=== PATIENT | female | born 1960 | race Caucasian/White ===

== ENCOUNTER 2020-06-16 07:49 | Outpatient (REF) | payer BC, SELFPAY ==
[2020-06-16 09:47] LABS: Alanine Aminotransferase 15 U/L (0-31); Aspartate Amino Transferase 17 U/L (5-31); Cholesterol 135 mg/dL; HDL Cholesterol 39 mg/dL; LDL Cholesterol Calculated 64 mg/dl; Triglycerides 163 mg/dL
[2020-06-16 09:59] LABS: Estimated Average Glucose 123 mg/dL; Hemoglobin A1C 137.7004 umol/L; Hemoglobin A1c % 5.9 %
== END 2020-06-16 07:50 | disposition home or self-care (01) ==
LOC: HO.LAB 07:49
PROVIDERS: PCP Internal Medicine; Visit Provider Internal Medicine
DX: E78.5 Hyperlipidemia, unspecified (principal); I10 Essential (primary) hypertension; E11.9 Type 2 diabetes mellitus without complications
CPT/HCPCS: 80061; 83036; 84450; 84460

== ENCOUNTER 2020-07-11 06:20 | Day surgery (SDC) | payer BC, SELFPAY ==
[2020-07-04 09:50] VITALS: BMI 37.7
[2020-07-11 06:55] LABS: Glucose, Whole Blood 125 mg/dL (60-115)
[2020-07-11 07:01] VITALS: BP 167/77; PULSE 96; RESP 16; TEMP 36.2; O2SAT 97
--- NOTE | 2020-07-11 07:20 | P.CONAN_ITS ---
[facility] Past Medical History Medical History (Updated 07/04/20 @ 09:57 by Margot Genao) Breast cancer, left Dyslipidemia Endometrial cancer Essential hypertension GERD (gastroesophageal reflux disease) History of anxiety Major depression in full remission Mild intermittent asthma Postmenopausal Sleep apnea Tubular adenoma of colon Type 2 diabetes mellitus without complication, without long-term current use of insulin Family History Family History Father Alcoholism CAD (coronary artery disease) Stomach cancer Myocardial infarction Mother Diabetes mellitus Sister Schizophrenia Brother Mental disorder Maternal Grandmother Uterine cancer Brother No problems noted. Family history of problems with anesthesia: No Surgical History Surgical History (Updated 07/04/20 @ 09:58 by Margot Genao) H/O colonoscopy History of esophagogastroduodenoscopy (EGD) History of excision of pilonidal cyst History of lumpectomy of left breast History of surgical removal of ganglion cyst History of total abdominal hysterectomy and bilateral salpingo-oophorectomy Hx of cholecystectomy History of Problems with Anesthesia: Yes (PONV) Social History Social History (Updated 06/23/20 @ 00:47 by Melissa Marsh MD) Alcohol intake: never Smoking Status: Never smoker Advance Directives Information Provided: No Meds Allergies Allergy/AdvReac Type Severity Reaction Status Date / Time azithromycin Allergy Intermediate RASH, Verified 07/04/20 09:59 [From Zithromax Z-German] DIARRHEA, VOMIT diphenhydramine AdvReac Intermediate Hallucinati Verified 07/04/20 09:59 [From Benadryl] ons Environmental Allergy Intermediate ITCHY Uncoded 07/04/20 09:59 NOSE, COUGH, SNEEZE Home Medications Medication Instructions Recorded Confirmed Type anastrozole 1 mg tablet 1 mg PO DAILY 06/19/20 07/04/20 History cholecalciferol (vitamin D3) 50 50 mcg PO DAILY 06/19/20 07/04/20 History mcg (2,000 unit) capsule citalopram 20 mg tablet 20 mg PO DAILY 06/19/20 07/04/20 History albuterol sulfate [ProAir HFA] 2 puff INHALATION Q4-6H PRN 07/04/20 07/04/20 H istory Exam Exam Date and Time: July 11, 2020 0720 Height,Weight and Vital Signs: Height 5 ft Weight 87.543 kg Last Vital Signs Temp 97.2 F 07/11/20 07:01 Pulse 96 07/11/20 07:01 Resp 16 07/11/20 07:01 BP 167/77 H 07/11/20 07:01 Pulse Ox 97 07/11/20 07:01 Pertinent Lab Results Pertinent Lab Results: Laboratory Tests 07/11/20 06:51 POC Glucose 125 H Airway Mallampati Class: II TM Dist: >3cm Neck ROM: Full Loose/Missing/Broken Teeth: Yes (Missing some) Heart: RRR Lungs: CTAB Assessment and Plan Assessment Anesthesia Assessment: Anesthesia Plan Discussed and Chart Reviewed Final Anesthetic Review NPO: Yes ASA Class: III Final Preanesthetic Review: No Changes in Pt Med Stat, Meds/Allgs Chart Reviewed, Consent Obtained/Reviewed and Anes Risks/Benef Reviewed Patient Risk: Intermediate Procedure Risk: Low Anesthetic Plan Anesthetic Plan: MAC: Disposition: Standard PACU
[2020-07-11] MEDS: Scopolamine 1.5 MG PATCH.TD.3 TRANSDERMA (07:38)
[2020-07-11] MEDS: Lactated Ringers 1,000 ML 100 ML IVCONT (07:38)
[2020-07-11] MEDS: Metoclopramide HCl 10 MG/2 ML VIAL IVPUSH (07:38)
[2020-07-11] MEDS: ondansetron HCL 4 MG/2 ML VIAL IVPUSH ×2 (07:38→09:51)
[2020-07-11 09:21] VITALS: BP 149/82; PULSE 71; RESP 16; TEMP 36.1; O2SAT 96
[2020-07-11 09:36] VITALS: BP 168/81; PULSE 63; RESP 14; O2SAT 98
--- NOTE | 2020-07-11 09:45 | MHC.SHP ---
Pre-Procedural Eval Section B Chief Complaint: Screening Details of Present Illness: Colon cancer screening No clinical changes since preop Relevant Family History (Specify if Yes): Yes Relevant Social History: None Present Medications: see Short Stay Collaborative assessment Medical History: Significant History (MO; TARAS, Breast Ca, Endometrial Cancer, GERD) History of Previous Operations: Relevant previous surgery/procedure and date(s) (Hysterectomy, GB, Ventral hernia) Allergies: Allergies Allergy/AdvReac Type Severity Reaction Status Date / Time azithromycin Allergy Intermediate RASH, Verified 07/04/20 09:59 [From Zithromax Z-German] DIARRHEA, VOMIT diphenhydramine AdvReac Intermediate Hallucinati Verified 07/04/20 09:59 [From Benadryl] ons Environmental Allergy Intermediate ITCHY Uncoded 07/04/20 09:59 NOSE, COUGH, SNEEZE Review of Systems Sugical H&P ROS: Negative: Constitution, Cardiovascular, Respiratory and Gastrointestinal Exam Surgical H&P Exam: Normal: HEENT, Normal: Heart and Normal: Extremities and Significant Findings: Abdomen (Large ventral hernia) Plan Diagnosis/Plan: Unchanged Patient has been examined and remains a candidate for the planned procedureYES
[2020-07-11 09:51] VITALS: BP 167/88; PULSE 77; RESP 18; O2SAT 97
[2020-07-11 10:05] VITALS: BP 135/78; PULSE 62; RESP 10; O2SAT 100
[2020-07-11 10:20] VITALS: BP 143/76; PULSE 62; RESP 15; TEMP 36.6; O2SAT 99
--- NOTE | 2020-07-11 10:31 | P.PCN_ITS ---
Brief Operative Note Date of procedure: 07/11/20 Pre-op diagnosis: Colon cancer screening, personal hx endometrial/Breast cance r;Pos family hx Post-op diagnosis: other (Colonic polyp--Hepatic Flexure) Procedure: COLONOSCOPY EPI INJ-8-9CC, ORISE--9CC, HSP WITH TRIMING, RESOLUTION CLIPPING, BASKET RETRIEVAL Anesthesia: MAC (ISAIAH PINEDA) Surgeon: Courtney Means Estimated blood loss (mL): 5 Pathology: other (HEPATIC FLEX POLYPS) Condition: stable Disposition: other
--- NOTE | 2020-07-11 11:17 | HO.POSTANES ---
Post Anesthesia Evaluation Post Anesthesia Evaluation Vital Signs: Vital Signs Temp Pulse Resp BP Pulse Ox 07/11/20 10:20 98 F 62 15 143/76 H 99 07/11/20 10:05 62 10 L 135/78 100 07/11/20 09:51 77 18 167/88 H 97 07/11/20 09:36 63 14 168/81 H 98 07/11/20 09:21 97 F 71 16 149/82 H 96 07/11/20 07:01 97.2 F 96 16 167/77 H 97 Anesthesia: Monitored Mental Status: Awake Pain Control: Satisfactory Nausea/Vomiting: None Hydration: Adequate Anesthesia-Related Issues: No Anes. Related Issues
--- NOTE | 2020-07-11 15:51 | OP_ITS ---
SURGEON: Courtney Means MD: POSTOPERATIVE DIAGNOSIS: Polyp, sessile, hepatic flexure. PROCEDURE PERFORMED: Colonoscopy with hot snare polypectomy x1 with hot snare trimming x1, ORISE injection submucosally 9 mL, epinephrine injection 8 to 9 mL. ESTIMATED BLOOD LOSS: Minimal blood loss. Resolution clipping of polyp, polypectomy site was done. COMPLICATIONS: There was a faulty cautery connection with Erbe #1 machine was switched. Procedure was completed without incident. Complex procedure, start time 7:46 a.m., end time 9:11 a.m. ANESTHESIA: Monitored. ANESTHESIOLOGIST: Eamon Salinas CRNA. ASSISTANTS: No tiler's assistant. SPECIMENS: Specimens removed; polyp, hepatic flexure. PREOPERATIVE DIAGNOSES: Positive family history in her father of colon cancer, personal history of breast cancer, uterine cancer. This was colon cancer screening exam. [employer]: Dr. Means. CONDITION: Postprocedure, stable. FINDINGS: Digital rectal exam revealed no specific lesion. Video colonoscope was introduced without difficulty. It was navigated into the rectosigmoid and sigmoid on up through descending, transverse, ascending colon into the cecum. Appendiceal orifice was seen. Ileocecal valve was well seen. As we pulled back, there was an 8 to 10 mm sessile polyp at the beginning of the first curve of the hepatic flexure on the proximal side. This was an area that was difficult to hold in place due to angulation of the scope. The area initially had submucosal injection of epinephrine secondary with the polyp actually being in the valley of two folds, this was done submucosally to bring the polyp up to an area to the level that we could, essentially place a snare around and cinched up. We were able to successfully remove the polyp. The polypectomy site was clear. There was an edge of polypoid tissue that was trimmed with the hot snare that we had used for the polypectomy. The polyp itself was large enough to be retrieved using [employer] retrieval net. Prior to this, we placed a resolution clip tangentially across the mid section of the polypectomy site. The scope was withdrawn with polyp and then reinserted for re-examination of the area between the anorectal verge and 65 cm. This was done. There were no additional lesions seen. Anorectal verge itself was clear. CURRENT RECOMMENDATIONS: With complexity of this procedure (probably added to by the patient's significant ventral hernia), her colonoscopy should probably be repeated in 3 years unless there is any suggestion of dysplastic tissue present on the biopsies. Courtney Means MD MEN/OTILIO / [id number] MTDD
== END 2020-07-11 11:19 | disposition home or self-care (01) ==
PROVIDERS: PCP Internal Medicine; Visit Provider Internal Medicine Gastroenterology
PROC: 0DJD8ZZ Inspection of Lower Intestinal Tract, Via Natural or Artificial Opening Endoscopic (ICD-10-PCS; CPT 45378; principal; 2020-07-11 07:30)
DX: Z12.11 Encounter for screening for malignant neoplasm of colon (principal); D12.3 Benign neoplasm of transverse colon; C50.912 Malignant neoplasm of unspecified site of left female breast; Z79.811 Long term (current) use of aromatase inhibitors; Z85.42 Personal history of malignant neoplasm of other parts of uterus; Z90.710 Acquired absence of both cervix and uterus; E78.5 Hyperlipidemia, unspecified; I10 Essential (primary) hypertension; K21.9 Gastro-esophageal reflux disease without esophagitis; Z80.0 Family history of malignant neoplasm of digestive organs; G47.33 Obstructive sleep apnea (adult) (pediatric); E11.9 Type 2 diabetes mellitus without complications; Z79.84 Long term (current) use of oral hypoglycemic drugs; J45.20 Mild intermittent asthma, uncomplicated; F32.5 Major depressive disorder, single episode, in full remission; Z79.899 Other long term (current) drug therapy; Z90.49 Acquired absence of other specified parts of digestive tract; Z88.1 Allergy status to other antibiotic agents; Z88.8 Allergy status to other drugs, medicaments and biological substances
CPT/HCPCS: 45385; 45381; 82947; 88305; J0171; J2405; J2765

== ENCOUNTER → 2020-07-24 08:51 | Outpatient (BNVA) | payer BC, SELFPAY | PROVIDERS: PCP Internal Medicine; Referring Provider Internal Medicine; Visit Provider Physician Assistant | DX: Z76.89 Persons encountering health services in other specified circumstances (principal) ==

== ENCOUNTER 2020-12-22 07:05 | Outpatient (REF) | payer BC, SELFPAY ==
[2020-12-22 11:52] LABS: Estimated Average Glucose 120 mg/dL; Hemoglobin A1c % 5.8 %
[2020-12-22 12:13] LABS: Alanine Aminotransferase 16 U/L (0-31); Albumin Level 4.4 g/dL (3.5-5.0); Alkaline Phosphatase 106 U/L (39-117); Anion Gap 18 (12-20); Aspartate Amino Transferase 18 U/L (5-31); Bilirubin Total 0.4 mg/dL (0.0-1.0); Blood Urea Nitrogen 15 mg/dL (9-16); Calcium 9.8 mg/dL (8.4-10.2); Carbon Dioxide 28 mmol/L (22-29); Chloride 100 mmol/L (96-108); Cholesterol 139 mg/dL; Estimated Glomerular Filt Rate > 60; Glucose Fasting 126 mg/dL (60-99); HDL Cholesterol 37 mg/dL; LDL Cholesterol Calculated 70 mg/dl; Sodium 141 mmol/L (135-145); Total Protein 7.3 g/dL (6.5-8.0); Triglycerides 163 mg/dL; Vitamin D 25-OH Total 67.2 ng/mL (>30)
[2020-12-22 16:23] LABS: Creatinine Urine 153.16 mg/dL; Microalbum/Creatinine Ratio Ur 21.5 ug/mg cr
== END 2020-12-22 07:06 | disposition home or self-care (01) ==
LOC: HO.HMGCLDS 07:05
PROVIDERS: PCP Internal Medicine; Visit Provider Internal Medicine
DX: E11.9 Type 2 diabetes mellitus without complications (principal); E78.5 Hyperlipidemia, unspecified; I10 Essential (primary) hypertension; Z78.0 Asymptomatic menopausal state
CPT/HCPCS: 36415; 80053; 80061; 82043; 82306; 83036

== ENCOUNTER 2022-01-25 19:06 | Emergency (ER) | payer OTHER, SELFPAY ==
--- NOTE | ~2022-01-25 | XR_ITS ---
EXAMINATION: XR KNEE, LEFT CLINICAL INFORMATION: Left knee pain COMPARISON: None TECHNIQUE: Four views of the left knee. FINDINGS: Bones and soft tissues are normal. No fracture or joint effusion. Alignment is anatomic. Joint spaces are well maintained. No abnormal soft tissue calcification. XR/XR knee LT 2V IMPRESSION: Normal left knee.
[2022-01-25 19:20] VITALS: BP 119/71; PULSE 77; RESP 18; TEMP 36.7; O2SAT 98; BMI 37.5
--- NOTE | 2022-01-25 21:30 | ED.FALL ---
HPI - Fall General Chief Complaint: Back Pain/Injury Stated Complaint: fall, knee inj Time Seen by Provider: 01/25/22 21:25 Source: patient Mode of arrival: ambulatory Limitations: no limitations History of Present Illness MD complaint: fall Onset (ago): day(s) (Friday and today due to knee giving out) Fall from: standing Fall witnessed: yes, by family Place fall occurred: home Loss of consciousness: none Prolonged down time: no Symptoms prior to fall: none Context: other (left knee giving out) Location of injury: back Location of injury - extremities: left: knee Severity: moderate Quality: throbbing Associated symptoms (after fall): other (painful to walk) Related Data Home Medications Medication Instructions Recorded Confirmed anastrozole 1 mg tablet 1 mg PO DAILY 06/19/20 02/09/21 psyllium husk 0.4 gram capsule 0.4 g PO DAILY 12/25/20 02/09/21 (Metamucil) Previous Rx's Medication Instructions Recorded amoxicillin 875 mg-potassium 1 tab PO BID #20 tab 02/09/21 clavulanate 125 mg tablet (Augmentin) hydrocodone 5 mg-acetaminophen 325 1 tab PO TID PRN #15 tab 02/09/21 mg tablet prednisone 10 mg tablet 10 mg PO .COMPLEX #45 tab 02/09/21 albuterol sulfate 90 mcg/actuation 2 puff INHALATION Q4-6H PRN #6.7 g 02/27/21 aerosol inhaler (ProAir HFA) benzonatate 200 mg capsule 200 mg PO TID PRN #20 cap 04/04/21 citalopram 20 mg tablet 20 mg PO DAILY #90 tab 06/18/21 lisinopril 5 mg tablet 5 mg PO DAILY #90 tab 06/21/21 metformin 500 mg tablet 500 mg PO Q12H #180 tab 08/07/21 simvastatin 20 mg tablet 20 mg PO BEDTIME #90 tab 10/01/21 montelukast 10 mg tablet 10 mg PO BEDTIME #90 tab 12/06/21 cholecalciferol (vitamin D3) 50 50 mcg PO DAILY #90 cap 12/13/21 mcg (2,000 unit) capsule (Vitamin D3) bupropion HCl 300 mg 24 hr tablet, 300 mg PO DAILY #90 tab 12/14/21 extended release hydrocodone 5 mg-acetaminophen 325 1 tab PO Q6H PRN #10 tab 06/03/22 mg tablet ondansetron 4 mg disintegrating 4 mg PO Q8H PRN #20 tab 01/25/22 tablet Allergies Allergy/AdvReac Type Severity Reaction Status Date / Time azithromycin Allergy Intermediate RASH, Verified 02/09/21 12:43 [From Zithromax Z-German] DIARRHEA, VOMIT diphenhydramine AdvReac Intermediate Hallucinati Verified 02/09/21 12:43 [From Benadryl] ons Environmental Allergy Intermediate ITCHY Uncoded 02/09/21 12:43 NOSE, COUGH, SNEEZE Review of Systems Review of Systems: Constitutional : No Fever, No Chills ENT/Mouth : No Ear Pain, No Hoarseness, No sore throat Eyes: No Eye Pain, No Swelling, No Redness, No Foreign Body Cardiovascular : No Chest Pain, No SOB Respiratory : No Cough, No Dyspnea Gastrointestinal : No Nausea, No Vomiting, No Diarrhea, No abdominal Pain Genitourinary : No Dysuria, No Hematuria Musculoskeletal : positive joint pain, No Myalgias, pos Joint Swelling Skin : No Skin lacerations, No rash Neuro : No Weakness, No Numbness, No Loss of Consciousness, No Dizziness, No Headache Psych : No Anxiety/Panic, No Depression Heme/Lymph: no easy bruising, no Lymphadenopathy Endocrine : No Polyuria, No Polydipsia All other systems reviewed and are negative [facility] Past Medical History Attestation statement: The following information was validated with the patient. Medical History Breast cancer, left Dyslipidemia Endometrial cancer Essential hypertension GERD (gastroesophageal reflux disease) History of anxiety Major depression in full remission Mild intermittent asthma Obesity Postmenopausal Sleep apnea Tubular adenoma of colon Type 2 diabetes mellitus without complication, without long-term current use of insulin Surgical History H/O colonoscopy History of esophagogastroduodenoscopy (EGD) History of excision of pilonidal cyst History of lumpectomy of left breast History of surgical removal of ganglion cyst History of total abdominal hysterectomy and bilateral salpingo-oophorectomy Hx of cholecystectomy Family History Family History Father Alcoholism CAD (coronary artery disease) Stomach cancer Myocardial infarction Mother Diabetes mellitus Sister Schizophrenia Brother Mental disorder Maternal Grandmother Uterine cancer Brother No problems noted. Social History Social History (Updated 01/25/22 @ 21:50 by Erin Brooks DO) Alcohol intake: never Patient Tobacco Use Status: Tobacco use Unknown Physical Exam Vital Signs: Vital Signs: Last Vital Signs Temp 98.1 F 01/25/22 19:20 Pulse 77 01/25/22 19:20 Resp 18 01/25/22 19:20 BP 119/71 01/25/22 19:20 Pulse Ox 98 01/25/22 19:20 BMI result Body Mass Index 37.5 Appearance: Alert. Oriented X3. No acute distress. Eyes: Pupils equal, round and reactive to light. ENT: Pharynx normal. Neck: Normal inspection. CVS: Pulses normal. Respiratory: No respiratory distress. Abdomen: Soft and non-tender. Skin: Skin warm and dry. Normal skin color. Extremities: No lower extremity edema. L knee small effusion - distal NV intact, ttp along medial joint line cannot range due to pain Neuro: Oriented X 3. No motor deficit. No sensory deficit. Procedures Orthopedic Splinting/Casting Injury #1: Side: left Lower Extremity Injury Location: knee Lower Extremity Immobilizer: knee immobilizer MDM - Fall MDM Narrative Medical decision making narrative: 61 yo female with hx of prior L ?PCL injury as a teen no surgery done here with L knee pain after a fall on Friday gave out again and she fell again tonight causing pain - no other reports of injury no head injury distal NV intact, xrays of knee negative - suspect internal knee injury will need MRI with PCP and will put in immobilizer, pain control, RICE - patient aware and will follow up Discharge Plan Discharge Clinical Impression: Left knee sprain Qualifiers: Encounter type: initial encounter Involved ligament of knee: unspecified ligament Qualified Code(s): S83.92XA - Sprain of unspecified site of left knee, initial encounter Patient Disposition: Home, Self-Care Instructions: Knee Sprain (ED) Additional Instructions: return to ED for any worsening symptoms or concerns rest ice elevate talk to your doctor this week about possible MRI given concern for ligament injury wear immobilizer during the day, at night wear yariel wrap, you should always wear immobilzer when walking around xrays show now acute fracture Prescriptions: New hydrocodone-acetaminophen 5-325 mg tablet 1 tab PO Q6H PRN (Reason: pain) Qty: 10 0RF Rx Instructions: partial fill okay ondansetron 4 mg tablet,disintegrating 4 mg PO Q8H PRN (Reason: nausea and vomiting) Qty: 20 0RF No Action albuterol sulfate [ProAir HFA] 90 mcg/actuation HFA aerosol inhaler 2 puff INHALATION Q4-6H PRN (Reason: Shortness Of Breath) Qty: 6.7 0RF benzonatate 200 mg capsule 200 mg PO TID PRN (Reason: cough) Qty: 20 0RF citalopram 20 mg tablet 20 mg PO DAILY Qty: 90 1RF lisinopril 5 mg tablet 5 mg PO DAILY Qty: 90 4RF metformin 500 mg tablet 500 mg PO Q12H Qty: 180 5RF simvastatin 20 mg tablet 20 mg PO BEDTIME Qty: 90 1RF montelukast 10 mg tablet 10 mg PO BEDTIME Qty: 90 2RF cholecalciferol (vitamin D3) [Vitamin D3] 50 mcg (2,000 unit) capsule 50 mcg PO DAILY Qty: 90 3RF bupropion HCl 300 mg tablet extended release 24 hr 300 mg PO DAILY Qty: 90 3RF anastrozole 1 mg tablet 1 mg PO DAILY 0RF amoxicillin-pot clavulanate [Augmentin] 875-125 mg tablet 1 tab PO BID Qty: 20 0RF prednisone 10 mg tablet 10 mg PO .COMPLEX Qty: 45 0RF Rx Instructions: 5 tabs daily for 3 days, 4 tabs daily for 3 days, 3 tabs daily for 3 days, 2 tabs daily for 3 days, 1 tab daily for 3 days hydrocodone-acetaminophen 5-325 mg tablet 1 tab PO TID PRN (Reason: pain) Qty: 15 0RF psyllium husk [Metamucil] 0.4 gram capsule 0.4 g PO DAILY 0RF
[2022-01-25] MEDS: HYDROcodone Bit/Acetam 5/325 TABLET 1 TAB PO (22:31)
[2022-01-25] MEDS: Ondansetron ODT 4 MG TAB.RAPDIS TRANSLINGU (22:31)
== END 2022-01-25 22:34 | disposition home or self-care (01) ==
LOC: HO.ED 21:58
PROVIDERS: Emergency Provider Emergency Medicine; PCP Internal Medicine
DX: S83.92XA Sprain of unspecified site of left knee, initial encounter (principal); I10 Essential (primary) hypertension; E11.9 Type 2 diabetes mellitus without complications; W19.XXXA Unspecified fall, initial encounter; Y93.9 Activity, unspecified; Y92.009 Unspecified place in unspecified non-institutional (private) residence as the place of occurrence of the external cause; Y99.9 Unspecified external cause status
CPT/HCPCS: 73560; 99282; 99283

== ENCOUNTER 2023-01-24 12:51 | Outpatient (REF) | payer OTHER, SELFPAY ==
[2023-01-24 14:39] LABS: Estimated Average Glucose 123 mg/dL; Hemoglobin A1C 148.4975 umol/L; Hemoglobin A1c % 5.9 %
[2023-01-24 14:40] LABS: Alanine Aminotransferase 21 U/L (0-31); Anion Gap 13 (12-20); Aspartate Amino Transferase 23 U/L (5-31); Blood Urea Nitrogen 11 mg/dL (9-16); Calcium 10.1 mg/dL (8.4-10.2); Carbon Dioxide 27 mmol/L (22-29); Chloride 104 mmol/L (96-108); Cholesterol 156 mg/dL; Estimated Glomerular Filt Rate 54; Glucose Fasting 107 mg/dL (60-99); HDL Cholesterol 42 mg/dL; LDL Cholesterol Calculated 86 mg/dl; Potassium 4.6 mmol/L (3.3-5.1); Sodium 139 mmol/L (135-145); Triglycerides 144 mg/dL
[2023-01-24 14:59] LABS: Vitamin D 25-OH Total 83.2 ng/mL (>30)
[2023-01-24 15:27] LABS: Creatinine Urine 181.74 mg/dL; Microalbum/Creatinine Ratio Ur 14.8 ug/mg cr
== END 2023-01-24 12:52 | disposition home or self-care (01) ==
LOC: HO.HMGCLDS 12:51
PROVIDERS: PCP Internal Medicine; Visit Provider Internal Medicine
DX: I10 Essential (primary) hypertension (principal); E78.5 Hyperlipidemia, unspecified; F32.5 Major depressive disorder, single episode, in full remission; E11.9 Type 2 diabetes mellitus without complications
CPT/HCPCS: 36415; 80048; 80061; 82043; 82306; 83036; 84450; 84460

== ENCOUNTER 2023-05-13 09:04 | Outpatient (AMB) | payer OTHER, SELFPAY ==
--- NOTE | 2023-05-13 09:58 | A.OFFPC_ITS ---
Vital Signs 05/13/23 10:04 Height 4 ft 11 in Weight 183 lb BMI 37.0 BP 126/62 Blood Pressure Location Lt brachial Position Sitting Pulse 69 Pulse Source Pulse Oximeter Pulse Oximetry (%) 97 Oxygen Delivery Method Room Air Intake Visit Reasons: Annual PE Intake Note: Pt is here today for her PE Allergies azithromycin [From Zithromax Z-German] Allergy (Intermediate, Verified 05/13/23 10:28) RASH, DIARRHEA, VOMIT diphenhydramine [From Benadryl] Adverse Reaction (Intermediate, Verified 05/13/23 10:28) Hallucinations Environmental Allergy (Intermediate, Uncoded 05/13/23 10:28) ITCHY NOSE, COUGH, SNEEZE Medication List - Last Reconciled 05/13/23 by Melissa Marsh MD albuterol sulfate 90 mcg/actuation (ProAir HFA) 2 puffs inhalation Q4-6H PRN anastrozole 1 mg PO DAILY bupropion HCl 300 mg PO DAILY cholecalciferol (vitamin D3) (Vitamin D3) 50 mcg PO DAILY citalopram 20 mg PO DAILY fluticasone propion-salmeterol 250-50 mcg/dose (Advair Diskus) 1 inh inhalation BID lisinopril 10 mg PO DAILY metformin 500 mg PO Q12H montelukast 10 mg PO BEDTIME psyllium husk (Metamucil) 0.4 grams PO DAILY simvastatin 20 mg PO BEDTIME tizanidine 4 mg PO BEDTIME PRN Tobacco use date assessed: 05/13/23 Dental Screening Dental Screen Date: 05/13/23 HPI Annual PE HPI Details 62-year-old lady, with obesity, history of adenomatous polyp with colon, hypertension, mild intermittent asthma, history of left breast cancer, dyslipidemia, type 2 diabetes mellitus long-term insulin use , here today for physical exam. She is up-to-date with her screening mammogram, does it at [facility], earlier this year, has an appointment for bone density scan ordered by her oncologist scheduled for May 2023. Currently taking anastrozole for left breast cancer, to complete 5 years. She had a tubular adenoma [place] [address] Means, due for repeat colonoscopy again this year. Patient states that she still has not heard from GI clinic about an appointment Diabetes mellitus and dyslipidemia , well controlled on present treatment, with hemoglobin A1c today at 5.9%. Last lipids January 2023 was within normal limits. Has been having severe anxiety attacks and depression ever since the of her . She has been speaking with an online bereavement swimming coach or instructor, but would like to be referred to a therapist. Has been compliant with taking her citalopram and bupropion. FOR[facility]LY [facility], LATER [facility] Medical History (Updated 06/09/23 @ 00:21 by Melissa Marsh MD) Anxiety and depression Obesity GERD (gastroesophageal reflux disease) History of anxiety Sleep apnea Essential hypertension Mild intermittent asthma Postmenopausal Endometrial cancer Tubular adenoma of colon Breast cancer, left Dyslipidemia Type 2 diabetes mellitus without complication, without long-term current use of insulin Surgical History History of surgical removal of ganglion cyst Hx of cholecystectomy History of excision of pilonidal cyst History of lumpectomy of left breast History of esophagogastroduodenoscopy (EGD) H/O colonoscopy History of total abdominal hysterectomy and bilateral salpingo-oophorectomy Family History Father Alcoholism CAD (coronary artery disease) Stomach cancer Myocardial infarction Mental health disorder Mother Diabetes mellitus Sister Schizophrenia Brother Mental health disorder Maternal Grandmother Uterine cancer Brother No problems noted. Social History Housing: House Alcohol intake: never Patient Tobacco Use Status: Former Tobacco user e-Cigarette/Vaping Use: Never Used Current occupational status: retired Cognitive needs: No Hearing needs: No Vision needs: Yes Questionnaire PHQ-9 Over the last 2 weeks, how often have you been bothered by any of the following problems? 1. Little interest or pleasure in doing things: more than half the days 2. Feeling down, depressed, or hopeless: nearly every day 3. Trouble falling or staying asleep, or sleeping too much: more than half the days 4. Feeling tired or having little energy: more than half the days 5. Poor appetite or overeating: nearly every day 6. Feeling bad about yourself - or that you are a failure or have let yourself or your family down: more than half the days 7. Trouble concentrating on things, such as reading the newspaper or watching television: more than half the days 8. Moving or speaking so slowly that other people could have noticed. Or the opposite - being so fidgety or restless that you have been moving around a lot more than usual: several days 9. Thoughts that you would be better off or of hurting yourself in some way: not at all Total score: 17 Depression Screening Interpretation: Positive (Was speaking to a bereavement swimming coach or instructor online, but would like to see her regular therapist) Depression Screening Follow-up: Existing condition, In treatment and Community Mental Health Worker F/U 90088 - PHQ-9 Billing: Yes Source: Developed by Drs. Trung Quintana, Janay Mcdaniel, Marshall Everett and colleagues, with an educational shakeel from [employer]. Thrive Questionnaire Date Thrive assessed: 05/13/23 I am a: Patient What is your living situation today?: I have a steady place to live Within the past 12 months, did the food you bought not last and you didn't have the money to get more?: Often true Within the past 12 months, did you worry whether your food would run out before you got money to buy more?: Often true Do you have trouble paying for medicines?: Yes Do you have trouble getting transportation to medical appointments?: No Do you have trouble paying your heating and electricity bill?: Yes Do you have trouble taking care of your child, family member or friend?: No Do you have trouble with day-to-day activities such as bathing, preparing meals, shopping, managing finances, etc.?: No Are you currently unemployed and looking for a job?: No Are you interested in more education?: No Please select the resources that you would like help with: Food, Paying for medicine and Utilities AUDIT C Alcohol Use Questionnaire (AUDIT-C) 1. How often do you have a drink containing alcohol?: Never Total Score: 0 RIGOBERTO-7 AMB Questionnaire RIGOBERTO-7 Date RIGOBERTO - 7 assessed: 05/13/23 Feeling nervous, anxious, or on edge: 3 = Nearly every day Not being able to stop or control worryin = More than half the days Worrying too much about different things: 2 = More than half the days Trouble relaxin = More than half the days Being so restless that it is hard to sit still: 2 = More than half the days Becoming easily annoyed or irritable: 3 = Nearly every day Feeling afraid as if something awful might happen: 3 = Nearly every day Total RIGOBERTO-7 score (0-4 normal; 5-9 mild; 10-14 moderate; 15-21 severe): 17 Source: Developed by Drs. Trung Quintana, Janay Mcdaniel, Marshall Everett and colleagues, with an educational shakeel from [employer]. RIGOBERTO-7 Assessment Billing RIGOBERTO-7 Assessment Tool: RIGOBERTO-7 Assessment 96345 Review of Systems Const Denies body aches, Denies fatigue, Denies fever(s), Denies headache(s), Denies weakness and Reports weight gain Eyes Details: She goes to [facility] for her diabetic retinopathy screening Denies change in vision, Denies eye discharge and Denies itchy eyes ENT Denies dizziness, Denies headache(s), Denies nasal congestion, Denies nasal discharge and Denies sore throat Card Denies chest pain, Denies lightheadedness, Denies palpitations and Denies dyspnea Resp Denies chest congestion, Denies cough, Denies dyspnea and Denies wheezing GI Denies abdominal pain, Denies change in bowel habits and Denies heartburn Denies urinary frequency, Denies dysuria and Denies urinary urgency Musc Denies abnormal gait, Denies back pain and Denies arthralgias Skin/Breast Denies lesions and Denies rash Neuro Denies abnormal gait, Denies dizziness, Denies headache(s) and Denies weakness Psych Reports as per HPI Endo Denies fatigue, Denies polydipsia, Denies polyuria and Denies palpitations Damir/Lymph Reports no additional complaints Aller/Immun Denies itchy eyes, Denies seasonal rhinorrhea and Denies wheezing Physical exam (Primary Care) Vital Signs: Last Vital Signs Pulse 69 05/13/23 10:04 BP 126/62 05/13/23 10:04 Pulse Ox 97 05/13/23 10:04 Oxygen Delivery Method Room Air 05/13/23 10:04 BMI result Body Mass Index 37.0 Tobacco/Smoking Status: Tobacco use Status Tobacco use date assessed 05/13/23 05/13/23 10:01 Patient Tobacco Use Status Former Tobacco user 05/13/23 10:01 e-Cigarette/Vaping Use Never Used 05/13/23 10:01 PHQ-9: PHQ-9 Score PHQ-9: Total score 17 05/13/23 10:57 Depression Screening Interpretation: Positive (Was speaking to a bereavement swimming coach or instructor online, but would like to see her regular therapist) Depression Screening Follow-up: Existing condition, In treatment and Community Mental Health Worker F/U Thrive Assessment: Date of Thrive Assessment Date Thrive assessed 05/13/23 05/13/23 10:08 Const Other: Alert oriented x3, in mild pain distress, ambulatory normal gait Orientation/consciousness: patient oriented x3 HENMT Head: Yes normocephalic Ears: external ears normal, TM's normal bilaterally and EAC's normal General nose exam: Normal external nose present Face and sinus: Yes face symmetric Mouth: Normal oral and palatal mucosa present, oropharynx normal and moist mucous membranes Resp Auscultation: clear to auscultation bilaterally Cardio Other: S1-S2 present regular rate and rhythm GI Inspection: Yes obesity Palpation (GI): Soft to palpation, nontender, no guarding and no masses General: Yes no CVA tenderness Back/Spine/Pelvis Back: no CVA tenderness Skin General skin exam: no rashes or lesions noted Neuro General: patient oriented x3, gait normal, tone normal, moves all extremities and Normal light touch and pain sensation Extrem General: Yes full ROM, Yes no clubbing, cyanosis or edema, Yes no calf tenderness and Yes normal gait Psych Appearance: grossly normal and well kempt Mental Status: mental status grossly normal Speech and movement: Normal speech and movement present Affect: Sad affect present Attitude: cooperative Thought process: Normal thought process present Results AMB Hemoglobin A1c AMB Hemoglobin A1c 5.9 % Last Edit by Rupal Rodriguez CMA on 05/13/23 10:26 Results Reviewed Results Reviewed: Laboratory Last Values Hgb A1c (Clinic) 5.9 % (4.0-6.0) 05/13/23 10:25 Assessment and Plan Assessment & Plan (1) Annual visit for general adult medical examination with abnormal findings: Code(s): Z00.01 - Encounter for general adult medical examination with abnormal findings Plan: Reviewed recent fasting lab results with patient. Continue with regular dental visit every 6 months and regular eye exams, at least every 2 years. Take adequate calcium in diet and vitamin-D 3 at 2000 IU per cap once a day, in addition to weight-bearing exercises to help maintain good muscle tone and weight control. Currently being followed by her oncologist at [facility] for her breast cancer screening, currently on anastrozole. Up-to-date with her screening colonoscopy, due for repeat screening this year (2) Tubulovillous adenoma: Comment: 60-year-old female with personal history of colon polyps, status post breast cancer follows up after 5 year repeat colonoscopy. She will repeat asymptomatic colonoscopy in 3 years 2022 she will continue bowel regimen as it has been beneficial. Code(s): D36.9 - Benign neoplasm, unspecified site Plan: Referred to GI Clinic for repeat colonoscopy, due this year (3) Dyslipidemia: Code(s): E78.5 - Hyperlipidemia, unspecified Plan: Reviewed recent fasting lipid profile with patient with levels within normal limit . Continue with simvastatin 20 mg at bedtime , in addition to adherence to low-cholesterol diet and regular exercise, at least 30 minutes 3 to 4 times a week. Advised patient to make healthy food choices, eat more fruits, vegetables, whole grains, wild caught fish and low-fat dairy. Limit amount of meat and fried or fatty food products, as well as processed foods and fast foods. Follow-up scheduled with repeat fasting lipid panel in 6 months. (4) Type 2 diabetes mellitus without complication, without long-term current use of insulin: Comment: on oral med Code(s): E11.9 - Type 2 diabetes mellitus without complications Plan: Hemoglobin A1c today at 5.9%. Continued on metformin 500 mg twice a day (5) Anxiety and depression: Code(s): F41.9 - Anxiety disorder, unspecified; F32.A - Depression, unspecified Plan: Continue bupropion HCL 300 mg daily and citalopram 20 mg daily referred to [facility] for assistance in getting in to be seen for therapy and psychiatry follow-up (6) Obesity: Code(s): E66.9 - Obesity, unspecified Qualifiers: Obesity type: due to excess calories Obesity classification: adult class 2 (BMI 35 - 39.9) Serious obesity comorbidity presence: with serious comorbidity Body mass index: BMI 35.0-35.9 Qualified Code(s): E66.01 - Morbid (severe) obesity due to excess calories; Z68.35 - Body mass index [BMI] 35.0- 35.9, adult (7) Mild intermittent asthma: Comment: uses inhaler prn Code(s): J45.20 - Mild intermittent asthma, uncomplicated Qualifiers: Asthma complication type: uncomplicated Qualified Code(s): J45.20 - Mild intermittent asthma, uncomplicated Plan: Has albuterol inhaler to use as needed and continue montelukast (8) Essential hypertension: Code(s): I10 - Essential (primary) hypertension Plan: Blood pressure at goal of less than 130/80. Continue with current medication. Reinforced importance of following a low sodium diet, getting regular exercise, and lowering stress levels. (9) Breast cancer, left: Code(s): C50.912 - Malignant neoplasm of unspecified site of left female breast Plan: Followed at [facility] by Dr. kay , currently on anastrozole Orders: Orders AMB Hemoglobin A1c 05/13/23 E11.9 - Type 2 diabetes mellitus without complications Basic Metabolic Panel Fasting 05/13/23 Z78.0 - Asymptomatic menopausal state, E78.5 - Hyperlipidemia, unspecified, F41.9 - Anxiety disorder, unspecified, F32.A - Depression, unspecified Lipid Panel 05/13/23 Z78.0 - Asymptomatic menopausal state, E78.5 - Hyperlipidemia, unspecified, F41.9 - Anxiety disorder, unspecified, F32.A - Depression, unspecified Alanine Aminotransferase 05/13/23 Z78.0 - Asymptomatic menopausal state, E78.5 - Hyperlipidemia, unspecified, F41.9 - Anxiety disorder, unspecified, F32.A - Depression, unspecified Aspartate Amino Transferase 05/13/23 Z78.0 - Asymptomatic menopausal state, E78.5 - Hyperlipidemia, unspecified, F41.9 - Anxiety disorder, unspecified, F32.A - Depression, unspecified Vitamin D 25-OH Total 05/13/23 Z78.0 - Asymptomatic menopausal state, E78.5 - Hyperlipidemia, unspecified, F41.9 - Anxiety disorder, unspecified, F32.A - Depression, unspecified Referrals Gastroenterology Referral D36.9 - Benign neoplasm, unspecified site Coding Level of Care Code Est Pt Prev Care 40-64y(34552) Diagnoses Annual visit for general adult medical examination with abnormal findings Z00.01 Tubulovillous adenoma D36.9 Dyslipidemia E78.5 Type 2 diabetes mellitus without complication, without long-term current use of insulin E11.9 Anxiety and depression F41.9; F32.A Class 2 severe obesity due to excess calories with serious comorbidity and body mass index (BMI) of 35.0 to 35.9 in adult E66.01; Z68.35 Obesity type: due to excess calories Obesity classification: adult class 2 (BMI 35 - 39.9) Serious obesity comorbidity presence: with serious comorbidity Body mass index: BMI 35.0-35.9 Mild intermittent asthma without complication J45.20 Asthma complication type: uncomplicated Essential hypertension I10 Breast cancer, left C50.912 Additional Codes RIGOBERTO-7 Assessment Billing - RIGOBERTO-7 Assessment Tool: RIGOBERTO-7 Assessment 86134 ([id number])
[2023-05-13 10:04] VITALS: BP 126/62; PULSE 69; O2SAT 97; BMI 37.0
== END 2023-05-13 11:17 | disposition home or self-care (01) ==
PROVIDERS: PCP Internal Medicine; Visit Provider Internal Medicine
DX: E11.9 Type 2 diabetes mellitus without complications (principal)
CPT/HCPCS: 83036; 99396

== ENCOUNTER 2023-06-09 08:21 | Outpatient (AMB) | payer OTHER, SELFPAY ==
--- NOTE | 2023-06-09 08:37 | MHC.OFFVIS ---
Intake Vital Signs 06/09/23 08:40 Height 4 ft 11 in Weight 182 lb BMI 36.8 BP 134/74 Blood Pressure Location Lt brachial Position Sitting Pulse 79 Intake Visit Reasons: Pre Colonoscopy screening/ Miguelangel former patient Intake Note: Patient 3rd pre colonoscopy Patient cc: abdominal bloating, gassy, feeling food getting stock in her esophagus, between diarrhea and constipation and her belly bottom is leaking on and off. Denies any other GI issues. Hvac Specialist Required: No Accompanied by: Self / Same As Patient Allergies azithromycin [From Zithromax Z-German] Allergy (Intermediate, Verified 06/09/23 08:36) RASH, DIARRHEA, VOMIT diphenhydramine [From Benadryl] Adverse Reaction (Intermediate, Verified 06/09/23 08:36) Hallucinations Environmental Allergy (Intermediate, Uncoded 05/13/23 10:28) ITCHY NOSE, COUGH, SNEEZE Medication List - Last Reconciled 06/09/23 by Rasheeda Rivera PAEzekielC albuterol sulfate 90 mcg/actuation (ProAir HFA) 2 puffs inhalation Q4-6H PRN anastrozole 1 mg PO DAILY bupropion HCl 300 mg PO DAILY cholecalciferol (vitamin D3) (Vitamin D3) 50 mcg PO DAILY citalopram 20 mg PO DAILY fluticasone propion-salmeterol 250-50 mcg/dose (Advair Diskus) 1 inh inhalation BID lisinopril 10 mg PO DAILY metformin 500 mg PO Q12H psyllium husk (Metamucil) 0.4 grams PO DAILY simvastatin 20 mg PO BEDTIME tizanidine 4 mg PO BEDTIME PRN HPI HPI Comments History of Present Illness Details A 62 y/o F- hx breast and uterine cancer- referred for colonoscopy- history polyps After review of record- EGD and colonoscopy = Dr. Maens- adenoma in 2014, Colonoscopy w/ tubulovillous adenoma- 2019- Appetite is not good- has to eat small portions- early satiety Feels food sticks in the esophagus at times-she does admit she has anxiety She is very concerned- her father had gastric cancer- Alternating stool pattern- her entire life- No abdominal pain-hematemesis, hematochezia, fever or chills PFSH Medical History (Updated 06/09/23 @ 11:14 by ANAM GunterC) Anxiety and depression Obesity GERD (gastroesophageal reflux disease) History of anxiety Sleep apnea Essential hypertension Mild intermittent asthma Postmenopausal Endometrial cancer Tubular adenoma of colon Breast cancer, left Dyslipidemia Type 2 diabetes mellitus without complication, without long-term current use of insulin Surgical History History of surgical removal of ganglion cyst Hx of cholecystectomy History of excision of pilonidal cyst History of lumpectomy of left breast History of esophagogastroduodenoscopy (EGD) H/O colonoscopy History of total abdominal hysterectomy and bilateral salpingo-oophorectomy Family History Father Alcoholism CAD (coronary artery disease) Stomach cancer Myocardial infarction Mental health disorder Mother Diabetes mellitus Sister Schizophrenia Brother Mental health disorder Maternal Grandmother Uterine cancer Brother No problems noted. Social History Housing: House Alcohol intake: never Patient Tobacco Use Status: Former Tobacco user e-Cigarette/Vaping Use: Never Used Current occupational status: retired Cognitive needs: No Hearing needs: No Vision needs: Yes Review of Systems Const All systems reviewed & are unremarkable except as noted in HPI and below Card Denies chest pain and Denies dyspnea Resp Denies dyspnea GI Denies abdominal pain, Denies hematochezia, Reports constipation, Reports early satiety, Reports loose stools, Denies nausea and Denies vomiting Physical Exam Vital Signs: Last Vital Signs Pulse 79 06/09/23 08:40 BP 134/74 06/09/23 08:40 BMI result Body Mass Index 36.8 Const General: cooperative and comfortable Orientation/consciousness: patient oriented x3 Limitations: no limitations Eyes Sclerae: sclerae normal Resp Effort & Inspection: normal respiratory effort and able to speak in complete sentences Auscultation: clear to auscultation bilaterally, no rales, no rhonchi and no wheezes Cardio Rate: regular rate Rhythm: regular rhythm Heart sounds: S1 normal heart sound present and S2 normal heart sound present GI Palpation (GI): Soft to palpation and nontender Auscultation: normal bowel sounds Skin General skin exam: no rashes or lesions noted Neuro General: patient oriented x3 Extrem General: Yes full ROM Psych Mental Status: mental status grossly normal Speech and movement: Clear speech present Affect: Anxious affect present Attitude: cooperative Thought process: Normal thought process present Thought content: Normal thought content present Results Reviewed Results Reviewed: EGD/ colon 2015- adenoma- no HP- 2019-tubulovillous adenoma Assessment & Plan Assessment & Plan (1) Tubulovillous adenoma: Comment: 62-year-old female with personal history of colon polyps, status post breast cancer follows up after 5 year repeat colonoscopy. She will repeat asymptomatic colonoscopy in 3 years 2022 she will continue bowel regimen as it has been beneficial. Code(s): D36.9 - Benign neoplasm, unspecified site (2) Tubular adenoma of colon: Comment: colonoscopy in [address] Means Code(s): D12.6 - Benign neoplasm of colon, unspecified (3) Dysphagia: Code(s): R13.10 - Dysphagia, unspecified Plan: Chew well eat slowly (4) Early satiety: Code(s): R68.81 - Early satiety Plan: GES Orders: Orders EGD/[place] Combo - GI Use Only Today NM gastric emptying study Today E11.9 - Type 2 diabetes mellitus without complications, R13.10 - Dysphagia, unspecified, R68.81 - Early satiety Medications: New bisacodyl (Dulcolax (bisacodyl)) Day before procedure, prep day Take 4 tablets by mouth upon awakening followed by large glass of water 20 mg (4 x 5 mg) PO ONCE 1 day 4 tabs 0RF colonoscopy prep Z12.11 - Encounter for screening for malignant neoplasm of colon polyethylene glycol 3350 (Miralax) Take as directed by mouth the day before your procedure. 238 grams PO ONCE 1 day PRN 238 grams 0RF laxative effect omeprazole 20 mg PO ONCE 30 days 30 caps 5RF Patient Instructions: Somewhat anxious 62-year-old female personal history of colon polyps due for repeat colonoscopy presents with early satiety and dysphagia. She may likely have a functional component- Encouraged to chew her food well eat slowly Reviewed previous procedure report some pathology EGD and colonoscopy Discussed procedure, rare risks, need for escort due to anesthesia and prep. Literature given Will schedule GES-r/o gastroparesis See her back after gastric emptying study for plan of care Encouraged to call questions or concerns Coding Level of Care Code Est Pt Level 4 (70453) Diagnoses Tubulovillous adenoma D36.9 Tubular adenoma of colon D12.6 Dysphagia R13.10 Early satiety R68.81 Time Spent (min) 30
[2023-06-09 08:40] VITALS: BP 134/74; PULSE 79; BMI 36.8
== END 2023-06-09 09:11 | disposition home or self-care (01) ==
PROVIDERS: PCP Internal Medicine; Visit Provider Physician Assistant
DX: D36.9 Benign neoplasm, unspecified site (principal); D12.6 Benign neoplasm of colon, unspecified; R13.10 Dysphagia, unspecified; R68.81 Early satiety
CPT/HCPCS: 99214

== ENCOUNTER → 2023-06-09 08:21 | Outpatient (BNVA) | payer OTHER, SELFPAY | PROVIDERS: PCP Internal Medicine; Visit Provider Physician Assistant ==

== ENCOUNTER 2023-10-02 09:21 | Day surgery (SDC) | payer OTHER, SELFPAY ==
[2023-09-30 13:00] VITALS: BMI 37.0
--- NOTE | 2023-10-01 10:19 | HO.ANESPROP2 ---
Documented by User: Jannet Lyman NP 10/01/23 10:19 HPI - Anesthesia Eval Consult details Narrative: 63yo F for Colonoscopy PMFSH Active Problems Active Problems: All Active Problems (Updated 06/09/23 @ 11:14 by Rasheeda Rivera PA-C) Dysphagia (Acute) Early satiety (Acute) Anxiety and depression (Acute) Obesity (Acute) Tubulovillous adenoma (Acute) Essential hypertension (Acute) Mild intermittent asthma (Acute) Postmenopausal (Acute) Tubular adenoma of colon (Acute) Breast cancer, left (Acute) Dyslipidemia (Acute) Type 2 diabetes mellitus without complication, without long-term current use of insulin (Acute) Past Medical History Medical History Anxiety and depression Obesity GERD (gastroesophageal reflux disease) History of anxiety Sleep apnea Essential hypertension Mild intermittent asthma Postmenopausal Endometrial cancer Tubular adenoma of colon Breast cancer, left Dyslipidemia Type 2 diabetes mellitus without complication, without long-term current use of insulin Family History Family History Father Alcoholism CAD (coronary artery disease) Stomach cancer Myocardial infarction Mental health disorder Mother Diabetes mellitus Sister Schizophrenia Brother Mental health disorder Maternal Grandmother Uterine cancer Brother No problems noted. Family history of problems with anesthesia: No Surgical History Surgical History History of surgical removal of ganglion cyst Hx of cholecystectomy History of excision of pilonidal cyst History of lumpectomy of left breast History of esophagogastroduodenoscopy (EGD) H/O colonoscopy History of total abdominal hysterectomy and bilateral salpingo-oophorectomy History of Problems with Anesthesia: Yes (PONV) Social History Social History Housing: House Alcohol intake: never Patient Tobacco Use Status: Former Tobacco user e-Cigarette/Vaping Use: Never Used Use of substances other than those prescribed or required for medical reasons: No Are you DNR?: No Advance Directives: No Advance Directives Information Provided: Yes Current occupational status: retired Cognitive needs: No Hearing needs: No Vision needs: Yes Meds Allergies Allergy/AdvReac Type Severity Reaction Status Date / Time azithromycin Allergy Intermediate RASH, Verified 10/02/23 09:55 [From Zithromax Z-German] DIARRHEA, VOMIT diphenhydramine AdvReac Intermediate Hallucinati Verified 10/02/23 09:55 [From Benadryl] ons Environmental Allergy Intermediate ITCHY Uncoded 10/02/23 09:55 NOSE, COUGH, SNEEZE Home Medications Medication Instructions Recorded Confirmed Last Taken Type anastrozole 1 mg tablet 1 mg PO DAILY 06/19/20 10/02/23 Unknown History psyllium husk 0.4 gram capsule 0.4 g PO DAILY 12/25/20 10/02/23 Unknown History (Metamucil) Exam Height,Weight and Vital Signs: Height 4 ft 11 in Weight 83.007 kg Assessment and Plan Assessment Anesthesia Assessment: Chart Reviewed Final Anesthetic Review Family History of Problems with Anesthesia: No History of Problems with Anesthesia: Yes (PONV) Documented by User: Remy Trujillo MD 10/02/23 11:20 PMFSH Past Medical History Medical History Anxiety and depression Obesity GERD (gastroesophageal reflux disease) History of anxiety Sleep apnea Essential hypertension Mild intermittent asthma Postmenopausal Endometrial cancer Tubular adenoma of colon Breast cancer, left Dyslipidemia Type 2 diabetes mellitus without complication, without long-term current use of insulin Family History Family History Father Alcoholism CAD (coronary artery disease) Stomach cancer Myocardial infarction Mental health disorder Mother Diabetes mellitus Sister Schizophrenia Brother Mental health disorder Maternal Grandmother Uterine cancer Brother No problems noted. Surgical History Surgical History History of surgical removal of ganglion cyst Hx of cholecystectomy History of excision of pilonidal cyst History of lumpectomy of left breast History of esophagogastroduodenoscopy (EGD) H/O colonoscopy History of total abdominal hysterectomy and bilateral salpingo-oophorectomy Social History Social History Housing: House Alcohol intake: never Patient Tobacco Use Status: Former Tobacco user e-Cigarette/Vaping Use: Never Used Use of substances other than those prescribed or required for medical reasons: No Are you DNR?: No Advance Directives: No Advance Directives Information Provided: Yes Current occupational status: retired Cognitive needs: No Hearing needs: No Vision needs: Yes Meds Allergies Allergy/AdvReac Type Severity Reaction Status Date / Time azithromycin Allergy Intermediate RASH, Verified 10/02/23 09:55 [From Zithromax Z-German] DIARRHEA, VOMIT diphenhydramine AdvReac Intermediate Hallucinati Verified 10/02/23 09:55 [From Benadryl] ons Environmental Allergy Intermediate ITCHY Uncoded 10/02/23 09:55 NOSE, COUGH, SNEEZE Home Medications Medication Instructions Recorded Confirmed Last Taken Type anastrozole 1 mg tablet 1 mg PO DAILY 06/19/20 10/02/23 Unknown History psyllium husk 0.4 gram capsule 0.4 g PO DAILY 12/25/20 10/02/23 Unknown History (Metamucil) Exam Airway Mallampati Class: Patient Non-Cooperative TM Dist: >3cm Neck ROM: Full Loose/Missing/Broken Teeth: Yes Heart: [id number] Lungs: ctq b/l Assessment and Plan Assessment Anesthesia Assessment: Anesthesia Plan Discussed Final Anesthetic Review NPO: Yes ASA Class: III Final Preanesthetic Review: No Changes in Pt Med Stat, Meds/Allgs Chart Reviewed, Consent Obtained/Reviewed and Anes Risks/Benef Reviewed Patient Risk: Intermediate Procedure Risk: Intermediate Assessment/Block/Sedation in SS: Assess/Block/Sedation-SS Anesthetic Plan Anesthetic Plan: MAC: and Agree w/ Assess. and Plan Disposition: Standard PACU
[2023-10-02 10:02] VITALS: BMI 37.0
[2023-10-02 10:16] VITALS: BP 151/58; PULSE 66; RESP 16; TEMP 36.7; O2SAT 97
[2023-10-02 10:23] LABS: Glucose, Whole Blood 129 mg/dL (60-115)
[2023-10-02] MEDS: Lactated Ringers 1,000 ML 100 ML IVCONT (10:33)
--- NOTE | 2023-10-02 11:18 | P.HPSUR_ITS ---
Pre-Procedural Eval Section A - 24 Hr Update-Section A only Date of Service: 10/02/23 Section B - Complete if H&P > 30 days Chief Complaint: Benign neoplasm of colon,dysphagia,early satiety Relevant Family History (Specify if Yes): No Relevant Social History: None Present Medications: see Short Stay Collaborative assessment Medical History: Significant History (Anxiety and depression Obesity GERD (dwight roesophageal reflux disease) History of anxiety Sleep apnea Essential hypertension Mild intermittent asthma Postmenopausal Endometrial cancer Tubular adenoma of colon Breast cancer, left Dyslipidemia Type 2 diabetes mellitus without complication, without long) History of Previous Operations: Relevant previous surgery/procedure and date(s) (History of surgical removal of ganglion cyst Hx of cholecystectomy History of excision of pilonidal cyst History of lumpectomy of left breast History of esophagogastroduodenoscopy (EGD) H/O colonoscopy History of total abdominal hysterectomy and bilateral salpingo-oophorectomy) Allergies: Allergies Allergy/AdvReac Type Severity Reaction Status Date / Time azithromycin Allergy Intermediate RASH, Verified 10/02/23 09:55 [From Zithromax Z-German] DIARRHEA, VOMIT diphenhydramine AdvReac Intermediate Hallucinati Verified 10/02/23 09:55 [From Benadryl] ons Environmental Allergy Intermediate ITCHY Uncoded 10/02/23 09:55 NOSE, COUGH, SNEEZE Review of Systems Sugical H&P ROS: Negative: Constitution, Cardiovascular, Respiratory, Neurological, Psychiatric, Hem-Onc, Allergic/Immunologic, Gastrointestinal, Genitourinary, Musculoskeletal, Integumentary, Endocrine and Eyes/Ears/Nos e/Throat Exam Surgical H&P Exam: Normal: HEENT, Normal: Heart, Normal: Lungs, Normal: Extremities, Normal: Abdomen, Normal: Skin and Normal: Neurological Plan Diagnosis/Plan: Unchanged I have reviewed the history and physical and performed a pertinent physical examination on my patient. No changes have occurred unless specified. Time Spent With Patient Time: Total time managing care of this patient today ____ minutes.
--- NOTE | 2023-10-02 11:22 | W.PM.OPN ---
Operative Note Operative Note Date of Service: 10/02/23 Narrative: Operative Information Procedure Description: Colonoscopy Indication: hx of polyps Anesthesia: MAC COLONOSCOPY Instrument: Olympus variable stiffness ADULT scope 190L Colonoscopy Monitoring: Vital signs and clinical assessment, continuous EKG monitoring, Pulse oximetry, Carbon Dioxide monitoring and blood pressure monitoring were done throughout the procedure. Colon withdrawal time was 11 minutes. Procedure: The patient was placed in the left lateral decubitis position and pre-procedure medications were administered. After a digital rectal examination of the ano-rectum, the video colonoscope was inserted into the rectum and advanced through the colon to the cecum/TI. The colonoscope was slowly withdrawn in a retrograde panoramic fashion and the colon mucosa was carefully examined including a retroflexed view of the rectum. Findings and interventions are described below. Procedure Difficulty: easy Findings: Terminal Ileum-normal Cecum:normal Right sided retroflexion- normal Ascending Colon: normal Transverse Colon -normal Descending Colon:normal Sigmoid Colon: normal Rectum: Retroflexion with small internal hemorrhoids, grade I Anorectum - normal Colon preparation: [place] Bowel Preparation Scale Right colon; 2 Transverse colon: 2 Left colon; 2 (0 = Unprepared colon segment with mucosa not seen due to solid stool that cannot be cleared. 1 = Portion of mucosa of the colon segment seen, but other areas of the colon segment not well seen due to staining, residual stool and/or opaque liquid. 2 = Minor amount of residual staining, small fragments of stool and/or opaque liquid, but mucosa of colon segment seen well. 3 = Entire mucosa of colon segment seen well with no residual staining, small fragments of stool or opaque liquid) Impression and Post Procedure Diagnosis: internal hemorrhoids Plan: High fiber diet leaflet Avoid straining at stool, epsom salts and sitz bath, anusol supps or cream Repeat Colonoscopy in 5 years due to prior hx of polyps or earlier if clinically indicated Above findings were reviewed with the patient and relevant handouts were provided if indicated.
[2023-10-02 11:50] VITALS: BP 98/54; PULSE 88; RESP 16; TEMP 36.2; O2SAT 95
[2023-10-02 12:05] VITALS: BP 98/54; PULSE 88; RESP 20; TEMP 36.6; O2SAT 98
== END 2023-10-02 12:45 | disposition home or self-care (01) ==
PROVIDERS: PCP Internal Medicine; Visit Provider Internal Medicine Gastroenterology
PROC: 0DJD8ZZ Inspection of Lower Intestinal Tract, Via Natural or Artificial Opening Endoscopic (ICD-10-PCS; CPT 45378; principal; 2023-10-02 12:10)
DX: Z12.11 Encounter for screening for malignant neoplasm of colon (principal); K64.0 First degree hemorrhoids; Z86.010 Personal history of colon polyps; I10 Essential (primary) hypertension; E11.9 Type 2 diabetes mellitus without complications; E78.5 Hyperlipidemia, unspecified; Z79.02 Long term (current) use of antithrombotics/antiplatelets; Z79.84 Long term (current) use of oral hypoglycemic drugs; Z79.899 Other long term (current) drug therapy
CPT/HCPCS: 45378; 82947; J2704

== ENCOUNTER → 2023-10-02 09:21 | Outpatient (BNV) | payer MEDICARE, OTHER, SELFPAY | PROVIDERS: PCP Internal Medicine; Visit Provider Internal Medicine Gastroenterology | DX: Z12.11 Encounter for screening for malignant neoplasm of colon (principal); Z86.010 Personal history of colon polyps; K64.0 First degree hemorrhoids | CPT/HCPCS: 45378 ==

== ENCOUNTER 2023-11-05 09:28 | Outpatient (AMB) | payer OTHER, SELFPAY ==
--- NOTE | 2023-11-05 09:43 | MHC.OFFWIV ---
Intake Vital Signs 11/05/23 09:47 Weight 194 lb BP 110/78 Blood Pressure Location Rt brachial Position Sitting Pulse 100 Pulse Source Pulse Oximeter Pulse Oximetry (%) 97 Oxygen Delivery Method Room Air Intake Visit Reasons: EST/right wrist pain no injury(lobby) Intake Note: Patient here for right wrist pain, pt states she thought it was her carpal tunnel flairing up but it progressively worsened and her right pinky finger is going numb. t Patient Tobacco Use Status: Former Tobacco user Allergies azithromycin [From Zithromax Z-German] Allergy (Intermediate, Verified 11/05/23 09:48) RASH, DIARRHEA, VOMIT diphenhydramine [From Benadryl] Adverse Reaction (Intermediate, Verified 11/05/23 09:48) Hallucinations Environmental Allergy (Intermediate, Uncoded 11/05/23 09:48) ITCHY NOSE, COUGH, SNEEZE Do you need a note to return to daycare/school/sports/work: No HPI HPI Comments History of Present Illness Details 63-year-old female comes in today complaining of left sided wrist pain particularly in the ulnar region. She said she awoke with this pain. Has a past medical history of carpal tunnel syndrome bilaterally left greater than right. She denies any injury or trauma to the area. [facility] Medical History (Updated 11/05/23 @ 10:23 by NANDINI Lopez) Anxiety and depression Obesity GERD (gastroesophageal reflux disease) History of anxiety Sleep apnea Essential hypertension Mild intermittent asthma Postmenopausal (~11/05/23) Endometrial cancer Tubular adenoma of colon Breast cancer, left Dyslipidemia Type 2 diabetes mellitus without complication, without long-term current use of insulin Surgical History History of surgical removal of ganglion cyst Hx of cholecystectomy History of excision of pilonidal cyst History of lumpectomy of left breast History of esophagogastroduodenoscopy (EGD) H/O colonoscopy History of total abdominal hysterectomy and bilateral salpingo-oophorectomy Family History Father Alcoholism CAD (coronary artery disease) Stomach cancer Myocardial infarction Mental health disorder Mother Diabetes mellitus Sister Schizophrenia Brother Mental health disorder Maternal Grandmother Uterine cancer Brother No problems noted. Social History Housing: House Alcohol intake: never Patient Tobacco Use Status: Former Tobacco user e-Cigarette/Vaping Use: Never Used Current occupational status: retired Cognitive needs: No Hearing needs: No Vision needs: Yes Review of Systems Const All systems reviewed & are unremarkable except as noted in HPI and below Physical Exam Const General: healthy appearing and in distress mild Extrem General: Yes normal to inspection Left upper extremity: wrist (Patient had severe pain in the distal ulna and acutely positive Tinel's adán) Assessment & Plan Assessment & Plan (1) Carpal tunnel syndrome: Code(s): G56.00 - Carpal tunnel syndrome, unspecified upper limb Plan: The patient was put in a thumb spica splint. A referral to [facility] was sent with an urgent message of her severe symptoms. Plan See plan Orders: Orders XR wrist LT min 3V Today M25.532 - Pain in left wrist Referrals Orthopedics Referral G56.00 - Carpal tunnel syndrome, unspecified upper limb Coding Level of Care Code Est Pt Level 3 (74313) Diagnoses Carpal tunnel syndrome G56.00
[2023-11-05 09:47] VITALS: BP 110/78; PULSE 100; O2SAT 97
== END 2023-11-05 11:02 | disposition home or self-care (01) ==
PROVIDERS: PCP Internal Medicine; Visit Provider Physician Assistant Medical
DX: G56.00 Carpal tunnel syndrome, unspecified upper limb (principal)
CPT/HCPCS: 99213

== ENCOUNTER 2023-11-05 09:56 | Outpatient (REF) | payer OTHER, SELFPAY ==
--- NOTE | ~2023-11-05 | XR_ITS ---
EXAMINATION: XR WRIST, LEFT CLINICAL INFORMATION: Left wrist pain COMPARISON: None available. TECHNIQUE: PA, lateral, and oblique views of the left wrist. FINDINGS: There is first carpometacarpal loss of joint space with sclerosis likely degenerative arthritic changes. Rest of the carpometacarpal joint spaces are preserved There is no visible acute fracture or dislocation. The soft tissues are normal. XR/XR wrist LT min 3V IMPRESSION: Moderate degenerative arthritic changes first carpometacarpal joint. No visible acute fracture or dislocation seen.
== END 2023-11-05 09:57 | disposition home or self-care (01) ==
LOC: HO.HMGCX 09:56
PROVIDERS: PCP Internal Medicine; Visit Provider Physician Assistant Medical
DX: M25.532 Pain in left wrist (principal)
CPT/HCPCS: 73110

== ENCOUNTER 2023-11-06 07:35 | Outpatient (REF) | payer OTHER, SELFPAY ==
[2023-11-06 12:16] LABS: Alanine Aminotransferase 17 U/L (0-31); Anion Gap 17 (12-20); Aspartate Amino Transferase 18 U/L (5-31); Blood Urea Nitrogen 12 mg/dL (9-16); Calcium 9.8 mg/dL (8.4-10.2); Carbon Dioxide 24 mmol/L (22-29); Chloride 103 mmol/L (96-108); Cholesterol 137 mg/dL (<200); Estimated Glomerular Filt Rate 53; Glucose Fasting 135 mg/dL (60-99); HDL Cholesterol 42 mg/dL (>40); LDL Cholesterol Calculated 67 mg/dL (<100); Potassium 4.3 mmol/L (3.3-5.1); Sodium 140 mmol/L (135-145); Triglycerides 141 mg/dL (<150)
[2023-11-06 12:50] LABS: Vitamin D 25-OH Total 68.6 ng/mL (>30)
== END 2023-11-06 07:36 | disposition home or self-care (01) ==
LOC: HO.HMGCLDS 07:35
PROVIDERS: PCP Internal Medicine; Visit Provider Internal Medicine
DX: F41.9 Anxiety disorder, unspecified (principal); F32.A Depression, unspecified; E78.5 Hyperlipidemia, unspecified; Z78.0 Asymptomatic menopausal state
CPT/HCPCS: 36415; 80048; 80061; 82306; 84450; 84460

== ENCOUNTER 2023-11-10 11:01 | Outpatient (AMB) | payer OTHER, SELFPAY ==
[2023-11-10 11:14] VITALS: BP 124/86; PULSE 99; O2SAT 97; BMI 37.6
--- NOTE | 2023-11-10 11:14 | A.OFFPC_ITS ---
Vital Signs 11/10/23 11:14 Height 4 ft 11 in Weight 186 lb BMI 37.6 BP 124/86 Blood Pressure Location Rt radial Position Sitting Pulse 99 Pulse Source Pulse Oximeter Pulse Oximetry (%) 97 Oxygen Delivery Method Room Air Intake Visit Reasons: 6 month follow up Intake Note: Pt is here today for her 6 mo. f/u Allergies azithromycin [From Zithromax Z-German] Allergy (Intermediate, Verified 11/10/23 11:15) RASH, DIARRHEA, VOMIT diphenhydramine [From Benadryl] Adverse Reaction (Intermediate, Verified 11/10/23 11:15) Hallucinations Environmental Allergy (Intermediate, Uncoded 11/10/23 11:15) ITCHY NOSE, COUGH, SNEEZE Medication List - Last Reconciled 11/11/23 by Melissa Marsh MD albuterol sulfate 90 mcg/actuation (ProAir HFA) 2 puffs inhalation Q4-6H PRN anastrozole 1 mg PO DAILY bisacodyl (Dulcolax (bisacodyl)) 20 mg (4 x 5 mg) PO ONCE 1 day bupropion HCl 300 mg PO DAILY cholecalciferol (vitamin D3) (Vitamin D3) 50 mcg PO DAILY citalopram 20 mg PO DAILY fluticasone propion-salmeterol 250-50 mcg/dose (Advair Diskus) 1 inh inhalation BID lisinopril 10 mg PO DAILY metformin 500 mg PO Q12H omeprazole 20 mg PO ONCE 30 days psyllium husk (Metamucil) 0.4 grams PO DAILY simvastatin 20 mg PO BEDTIME Tobacco use date assessed: 11/10/23 Dental Screening Dental Screen Date: 11/10/23 Did you have a dental visit in the last 12 months?: No Was dental information given to patient?: Patient declined HPI 6 month follow up HPI Details 63-year-old lady here today for follow-u p on her diabetes mellitus, hyperlipidemia, mild intermittent asthma, anxiety depression, and hypertension. She has been feeling well, up-to-date with all her vaccinations, has no complaints at present time. [facility] Medical History Anxiety and depression Obesity GERD (gastroesophageal reflux disease) History of anxiety Sleep apnea Essential hypertension Mild intermittent asthma Postmenopausal (~11/05/23) Endometrial cancer Tubular adenoma of colon Breast cancer, left Dyslipidemia Type 2 diabetes mellitus without complication, without long-term current use of insulin Surgical History History of surgical removal of ganglion cyst Hx of cholecystectomy History of excision of pilonidal cyst History of lumpectomy of left breast History of esophagogastroduodenoscopy (EGD) H/O colonoscopy History of total abdominal hysterectomy and bilateral salpingo-oophorectomy Family History Father Alcoholism CAD (coronary artery disease) Stomach cancer Myocardial infarction Mental health disorder Mother Diabetes mellitus Sister Schizophrenia Brother Mental health disorder Maternal Grandmother Uterine cancer Brother No problems noted. Social History Housing: House Alcohol intake: never Patient Tobacco Use Status: Former Tobacco user e-Cigarette/Vaping Use: Never Used Current occupational status: retired Cognitive needs: No Hearing needs: No Vision needs: Yes Questionnaire PHQ-9 Over the last 2 weeks, how often have you been bothered by any of the following problems? 1. Little interest or pleasure in doing things: not at all 2. Feeling down, depressed, or hopeless: not at all 3. Trouble falling or staying asleep, or sleeping too much: not at all 4. Feeling tired or having little energy: not at all 5. Poor appetite or overeating: not at all 6. Feeling bad about yourself - or that you are a failure or have let yourself or your family down: not at all 7. Trouble concentrating on things, such as reading the newspaper or watching television: not at all 8. Moving or speaking so slowly that other people could have noticed. Or the opposite - being so fidgety or restless that you have been moving around a lot more than usual: not at all 9. Thoughts that you would be better off or of hurting yourself in some way: not at all Total score: 0 Depression Screening Interpretation: Negative Depression Screening Done: Yes 91459 - PHQ-9 Billing: Yes Source: Developed by Drs. Trung Quitnana, Janay B.Marshall Rojo and colleagues, with an educational shakeel from [employer]. Thrive Questionnaire Date Thrive assessed: 11/10/23 I am a: Patient What is your living situation today?: I have a steady place to live Within the past 12 months, did the food you bought not last and you didn't have the money to get more?: Never true Within the past 12 months, did you worry whether your food would run out before you got money to buy more?: Never true Do you have trouble paying for medicines?: No Do you have trouble getting transportation to medical appointments?: No Do you have trouble paying your heating and electricity bill?: No Do you have trouble taking care of your child, family member or friend?: No Do you have trouble with day-to-day activities such as bathing, preparing meals, shopping, managing finances, etc.?: No Are you currently unemployed and looking for a job?: No Are you interested in more education?: No THRIVE Score: 0 AUDIT C Alcohol Use Questionnaire (AUDIT-C) 1. How often do you have a drink containing alcohol?: Never Total Score: 0 RIGOBERTO-7 AMB Questionnaire RIGOBERTO-7 Date RIGOBERTO - 7 assessed: 11/10/23 Feeling nervous, anxious, or on edge: 1 = Several days Not being able to stop or control worryin = Not at all Worrying too much about different things: 1 = Several days Trouble relaxin = Not at all Being so restless that it is hard to sit still: 0 = Not at all Becoming easily annoyed or irritable: 0 = Not at all Feeling afraid as if something awful might happen: 0 = Not at all Total RIGOBERTO-7 score (0-4 normal; 5-9 mild; 10-14 moderate; 15-21 severe): 2 Source: Developed by Drs. Trung Quintana, Marshall Ramachandran and colleagues, with an educational shakeel from [employer]. RIGOBERTO-7 Assessment Billing RIGOBERTO-7 Assessment Tool: RIGOBERTO-7 Assessment 31671 ACT Questionnaire In the past 4 weeks, how much of the time did your asthma keep you from getting as much done at work, school or at home?: None of the time During the past 4 weeks, how often have you had shortness of breath?: 1-2 times a week During the past 4 weeks, how often did your asthma symptoms wake you up at night or earlier than usual in the morning?: Not at all During the past 4 weeks, how often have you had to use your rescue inhaler or nebulizer medication?: Not at all How would you rate your asthma control during the past 4 weeks?: Completely controlled Score: 24 Review of Systems Const Denies body aches, Denies fatigue, Denies fever(s), Denies headache(s) and Denies weakness Eyes Details: She goes to [facility] for her diabetic retinopathy screening Denies change in vision, Denies eye discharge and Denies itchy eyes ENT Denies dizziness, Denies headache(s), Denies nasal congestion, Denies nasal discharge and Denies sore throat Card Denies chest pain, Denies lightheadedness, Denies palpitations and Denies dy spnea Resp Denies chest congestion, Denies cough, Denies dyspnea and Denies wheezing GI Denies abdominal pain, Denies change in bowel habits and Denies heartburn Denies urinary frequency, Denies dysuria and Denies urinary urgency Musc Denies abnormal gait, Denies back pain and Denies arthralgias Skin/Breast Denies lesions and Denies rash Neuro Denies abnormal gait, Denies dizziness, Denies headache(s) and Denies weakness Psych Reports as per HPI Endo Denies fatigue, Denies polydipsia, Denies polyuria and Denies palpitations Damir/Lymph Reports no additional complaints Aller/Immun Denies itchy eyes, Denies seasonal rhinorrhea and Denies wheezing Physical exam (Primary Care) Vital Signs: Last Vital Signs Pulse 99 11/10/23 11:14 BP 124/86 11/10/23 11:14 Pulse Ox 97 11/10/23 11:14 Oxygen Delivery Method Room Air 11/10/23 11:14 BMI result Body Mass Index 37.6 Tobacco/Smoking Status: Tobacco use Status Tobacco use date assessed 11/10/23 11/10/23 11:20 Patient Tobacco Use Status Former Tobacco user 11/10/23 11:20 e-Cigarette/Vaping Use Never Used 11/10/23 11:20 PHQ-9: PHQ-9 Score PHQ-9: Total score 0 11/11/23 02:06 Depression Screening Interpretation: Negative Thrive Assessment: Date of Thrive Assessment Date Thrive assessed 11/10/23 11/10/23 12:30 Const Other: Alert oriented x3, in mild pain distress, ambulatory normal gait Orientation/consciousness: patient oriented x3 HENMT Head: Yes normocephalic Ears: external ears normal, TM's normal bilaterally and EAC's normal General nose exam: Normal external nose present Face and sinus: Yes face symmetric Mouth: Normal oral and palatal mucosa present, oropharynx normal and moist mucous membranes Eyes General: appearance normal, both eyes and all related structures Neck Neck: Yes full ROM, Yes no lymphadenopathy and Yes supple Resp Auscultation: clear to auscultation bilaterally Cardio Other: S1-S2 present regular rate and rhythm GI Inspection: Yes obesity Palpation (GI): Soft to palpation, nontender, no guarding and no masses General: Yes no CVA tenderness Back/Spine/Pelvis Back: no CVA tenderness Skin General skin exam: no rashes or lesions noted Neuro General: patient oriented x3, gait normal, tone normal, moves all extremities and Normal light touch and pain sensation Extrem General: Yes full ROM, Yes no clubbing, cyanosis or edema, Yes no calf tenderness and Yes normal gait Psych Appearance: grossly normal and well kempt Mental Status: mental status grossly normal Speech and movement: Normal speech and movement present Affect: normal affect Thought process: Normal thought process present Results AMB Hemoglobin A1c AMB Hemoglobin A1c 6.2 % Last Edit by Benita Sun CMA on 11/10/23 12: 27 Results Reviewed Results Reviewed: Laboratory Last Values Hgb A1c (Clinic) 6.2 % (4.0-6.0) H 11/10/23 12:21 Name: Sharon Vickers Age/Sex: 63/F : 1960 Unit#: [id number] Attend Dr: Melissa Marsh MD Re11/06/23 Status: DEP [facility] Disch: SPEC : [id number] DARA: 11/06/23 STATUS: COMP REQ : [id number] RECD: 11/06/[address]: Melissa Marsh MD COMP: 11/06/23 ENTERED: 11/06/[address]: ORDERED: Met Prof Fast, AST, ALT, Lipid Panel, Vitamin D 25-OH Test Result Flag Reference Sodium 140 135-145 mmol/L Potassium 4.3 3.3-5.1 mmol/L CL 103 96-108 mmol/L CO2 24 22-29 mmol/L Gap 17 12-20 BUN 12 9-16 mg/dL Creat 1.04 0.5-1.4 mg/dL EGFR 53 NOTE: For -[place] individuals, multiply the result by 1.210. Chronic Kidney Disease: Estimated GFR < 60 mL/min/1.73m2 Severe Kidney Disease: Estimated GFR < 15 mL/min/1.73m2 FBS 135 H 60-99 mg/dL A fasting glucose of 126 mg/dl or greater on more than one occasion is considered diagnostic of diabetes. CA 9.8 8.4-10.2 mg/dL AST (GOT) 18 5-31 U/L ALT (GPT) 17 0-31 U/L Triglyceride 141 <150 mg/dL Desirable Triglyceride: less than 150 mg/dL Borderline High Triglyceride 150-199 mg/dL High Triglyceride: 200-499 mg/dL Very High Triglyceride: greater than or equal to 5OO mg/dL Cholesterol 137 <200 mg/dL Desirable Cholesterol: less than 200 mg/dL Borderline High Cholesterol: 200-239 mg/dL High Cholesterol: greater than 239 mg/dL LDL Calculated 67 <100 mg/dL Desirable LDL: less than 100 mg/dL Near Optimal/Above Optimal LDL: 110-129 mg/dL Borderline High LDL: 130-159 mg/dL High LDL: 160-189 mg/dL Very High LDL: greater than or equal to 190 mg/dL HDL 42 >40 mg/dL Desirable HDL: greater than 40 mg/dL Note: This HDL assay may give artificially low results in patients with liver disease. Vit D 25-OH Tot 68.6 >30 ng/mL Health Based Reference Values* < 20 ng/mL Deficient 20-30 ng/mL Insufficient > 30 ng/mL Sufficient Laboratory Tests 05/13/23 11/10/23 10:25 12:21 Hgb A1c (Clinic) 5.9 6.2 H Assessment and Plan Assessment & Plan (1) Dyslipidemia: Code(s): E78.5 - Hyperlipidemia, unspecified Plan: Reviewed recent fasting lipid profile with patient with levels within normal limits . Continue simvastatin 20 mg at bedtime , in addition to adherence to low-cholesterol diet and regular exercise, at least 30 minutes 3 to 4 times a week. Advised patient to make healthy food choices, eat more fruits, vegetables, whole grains, wild caught fish and low-fat dairy. Limit amount of meat and fried or fatty food products, as well as processed foods and fast foods. Follow-up scheduled with repeat fasting lipid panel in 3 months. (2) Type 2 diabetes mellitus without complication, without long-term current use of insulin: Comment: on oral med Code(s): E11.9 - Type 2 diabetes mellitus without complications Plan: Hemoglobin A1c today is at 6.2%, higher than last check. Continue with metformin 500 mg every 12 hours reinforced importance of following recommended diet and getting regular exercise. Reminded to get her yearly diabetes retinopathy screening. Will repeat labs again in 3 months, up-to-date with all her vaccinations (3) Anxiety and depression: Code(s): F41.9 - Anxiety disorder, unspecified; F32.A - Depression, unspecified Plan: Doing well on citalopram 20 mg daily together with bupropion HCL 300 mg daily, (4) Essential hypertension: Code(s): I10 - Essential (primary) hypertension Plan: Blood pressure at goal of less than 130/80. Continue with current medication. Reinforced importance of following a low sodium diet, getting regular exercise, and lowering stress levels. (5) Mild intermittent asthma: Comment: uses inhaler prn Code(s): J45.20 - Mild intermittent asthma, uncomplicated Qualifiers: Asthma complication type: uncomplicated Qualified Code(s): J45.20 - Mild intermittent asthma, uncomplicated Plan: Asthma well controlled on current inhalers, rarely needing to use her albuterol Orders: Orders AMB Hemoglobin A1c 11/10/23 E11.9 - Type 2 diabetes mellitus without complications Alanine Aminotransferase 01/25/24 E11.9 - Type 2 diabetes mellitus without complications, E78.5 - Hyperlipidemia, unspecified, F32.A - Depression, unspecified, F41.9 - Anxiety disorder, unspecified, I10 - Essential (primary) hypertension, J45.20 - Mild intermittent asthma, uncomplicated Microalbumin, Random (w Creat) 01/25/24 E11.9 - Type 2 diabetes mellitus without complications, E78.5 - Hyperlipidemia, unspecified, F32.A - Depression, unspecified, F41.9 - Anxiety disorder, unspecified, I10 - Essential (primary) hypertension, J45.20 - Mild intermittent asthma, uncomplicated Hemoglobin A1c 01/25/24 E11.9 - Type 2 diabetes mellitus without complications, E78.5 - Hyperlipidemia, unspecified, F32.A - Depression, unspecified, F41.9 - Anxiety disorder, unspecified, I10 - Essential (primary) hypertension, J45.20 - Mild intermittent asthma, uncomplicated Aspartate Amino Transferase 01/25/24 E11.9 - Type 2 diabetes mellitus without complications, E78.5 - Hyperlipidemia, unspecified, F32.A - Depression, unspecified, F41.9 - Anxiety disorder, unspecified, I10 - Essential (primary) hypertension, J45.20 - Mild intermittent asthma, uncomplicated Basic Metabolic Panel Fasting 01/25/24 E11.9 - Type 2 diabetes mellitus without complications, E78.5 - Hyperlipidemia, unspecified, F32.A - Depression, unspecified, F41.9 - Anxiety disorder, unspecified, I10 - Essential (primary) hypertension, J45.20 - Mild intermittent asthma, uncomplicated Lipid Panel 01/25/24 E11.9 - Type 2 diabetes mellitus without complications, E78.5 - Hyperlipidemia, unspecified, F32.A - Depression, unspecified, F41.9 - Anxiety disorder, unspecified, I10 - Essential (primary) hypertension, J45.20 - Mild intermittent asthma, uncomplicated Coding Level of Care Code Est Pt Level 4 (14174) Diagnoses Dyslipidemia E78.5 Type 2 diabetes mellitus without complication, without long-term current use of insulin E11.9 Anxiety and depression F41.9; F32.A Essential hypertension I10 Mild intermittent asthma without complication J45.20 Asthma complication type: uncomplicated Additional Codes RIGOBERTO-7 Assessment Billing - RIGOBERTO-7 Assessment Tool: RIGOBERTO-7 Assessment 64518 ([id number])
== END 2023-11-10 12:36 | disposition home or self-care (01) ==
PROVIDERS: PCP Internal Medicine; Visit Provider Internal Medicine
DX: E11.9 Type 2 diabetes mellitus without complications (principal)
CPT/HCPCS: 83036; 99214

== ENCOUNTER 2024-01-12 12:16 | Outpatient (AMB) | payer SELFPAY ==
--- NOTE | 2024-01-12 12:34 | A.OFFVIS_ITS ---
Intake Visit Reasons: N/P B/L CTS LT > RT no EMG Intake Note: Sharon is a 63 year old right hand dominant female who presents today as a new patient for a evolution of her bilateral hand numbness. No EMG. Patient reports her left hand is worse that the right. Patient states that her numbness is on the left and right thumb, idex finger and middle finger. She states that her symptoms ongoing/off and on depending on what she is doing for about 2 months. She finds relief when using her braces. Allergies azithromycin [From Zithromax Z-German] Allergy (Intermediate, Verified 01/12/24 12:38) RASH, DIARRHEA, VOMIT diphenhydramine [From Benadryl] Adverse Reaction (Intermediate, Verified 01/12/24 12:38) Hallucinations Environmental Allergy (Intermediate, Uncoded 11/10/23 11:15) ITCHY NOSE, COUGH, SNEEZE HPI HPI N/P B/L CTS LT > RT no EMG : Details: 63-year-old right hand dominant female who presents in the office today, as a new patient, for an evaluation of bilateral hand numbness. Left hand being greater than the right hand. She presents in the office today wearing a brace on both wrist/hands. While in the office today the patient reports her numbness for the past 2 months is in the bilateral thumb, index, and middle digits. She reports her symptoms are affected by the activities she is performing. She finds relief with the use of the brace. COUNT INCLUDES THE [facility] Medical History Anxiety and depression Obesity GERD (gastroesophageal reflux disease) History of anxiety Sleep apnea Essential hypertension Mild intermittent asthma Postmenopausal (~11/05/23) Endometrial cancer Tubular adenoma of colon Breast cancer, left Dyslipidemia Type 2 diabetes mellitus without complication, without long-term current use of insulin Surgical History History of surgical removal of ganglion cyst Hx of cholecystectomy History of excision of pilonidal cyst History of lumpectomy of left breast History of esophagogastroduodenoscopy (EGD) H/O colonoscopy History of total abdominal hysterectomy and bilateral salpingo-oophorectomy Family History Father Alcoholism CAD (coronary artery disease) Stomach cancer Myocardial infarction Mental health disorder Mother Diabetes mellitus Sister Schizophrenia Brother Mental health disorder Maternal Grandmother Uterine cancer Brother No problems noted. Social History Housing: House Alcohol intake: never Patient Tobacco Use Status: Former Tobacco user e-Cigarette/Vaping Use: Never Used Current occupational status: retired Cognitive needs: No Hearing needs: No Vision needs: Yes Review of Systems Const All systems reviewed & are unremarkable except as noted in HPI and below Physical Exam Const General: cooperative and no acute distress Orientation/consciousness: patient oriented x3 Resp Effort & Inspection: normal respiratory effort and able to speak in complete sentences Cardio Peripheral pulses: Peripheral pulses 2+ throughout Skin General skin exam: no rashes or lesions noted Neuro General: patient oriented x3 Extrem Other: Left upper extremity: Normal to inspection. No ecchymosis, erythema, or edema. Tenderness to palpation over the lateral epicondyle. Pain at the lateral epicondyle with resisted wrist extension. Able to perform full finger flexion, extension, abduction, adduction, finger cross, and thumbs up without deficit. Flat okay signs. Able to make a closed fist. Sensation intact. Positive Tinel?s at the cubital and carpal tunnel. Capillary refill is brisk. Radial pulse intact. Assessment & Plan Assessment & Plan (1) Left carpal tunnel syndrome: Code(s): G56.02 - Carpal tunnel syndrome, left upper limb Category: Medical Plan Ms. Vickers is a 63-year-old right hand dominant female who presents in the office today, as a new patient, for an evaluation of bilateral hand numbness. Left hand being greater than the right hand. While in the office today the patient reports her numbness for the past 2 months is in the bilateral thumb, index, and middle digits. She reports her symptoms are affected by the activities she is performing. She finds relief with the use of the brace. An order for an EMG study for the bilateral upper extremities was made in the o ice today. The patient will call the office once the study is obtained. Patient can continue to use the brace at this time, but strongly recommend working on gentle ROM to keep her from becoming stiff. Follow up will be after the EMG is obtained, or sooner if needed. X-rays of the left wrist/hand, obtained on 11/05/2023, revealed: Moderate degenerative arthritic changes first carpometacarpal joint. No visible acute fracture or dislocation seen. Orders: Orders NE electromyogram (EMG) 01/12/24 G56.00 - Carpal tunnel syndrome, unspecified upper limb Patient Instructions: Scribed by Cecily Roa medical records assistant, for Kristyn Dailey PA-C on 01/12/2024 at 12:43 pm, EST. Coding Level of Care Code New Pt Level 4 (20366) Diagnoses Left carpal tunnel syndrome G56.02
== END 2024-01-12 13:08 | disposition home or self-care (01) ==
PROVIDERS: PCP Internal Medicine; Visit Provider Physician Assistant
DX: G56.02 Carpal tunnel syndrome, left upper limb (principal)
CPT/HCPCS: 99204

== ENCOUNTER → 2024-01-12 12:16 | Outpatient (BNVA) | payer OTHER, SELFPAY | PROVIDERS: PCP Internal Medicine; Visit Provider Physician Assistant ==

== ENCOUNTER 2024-02-06 07:06 | Outpatient (REF) | payer OTHER, SELFPAY ==
[2024-02-06 08:31] LABS: Estimated Average Glucose 126 mg/dL
[2024-02-06 08:33] LABS: Microalbum/Creatinine Ratio Ur 8.2 ug/mg cr (<30)
[2024-02-06 08:40] LABS: Alanine Aminotransferase 17 U/L (0-31); Anion Gap 15 (12-20); Aspartate Amino Transferase 18 U/L (5-31); Blood Urea Nitrogen 12 mg/dL (9-16); Calcium 9.6 mg/dL (8.4-10.2); Carbon Dioxide 21 mmol/L (22-29); Chloride 106 mmol/L (96-108); Cholesterol 133 mg/dL (<200); Estimated Glomerular Filt Rate 60; Glucose Fasting 125 mg/dL (60-99); HDL Cholesterol 40 mg/dL (>40); LDL Cholesterol Calculated 62 mg/dL (<100); Potassium 4.3 mmol/L (3.3-5.1); Sodium 138 mmol/L (135-145); Triglycerides 156 mg/dL (<150)
== END 2024-02-06 07:07 | disposition home or self-care (01) ==
LOC: HO.LAB 07:06
PROVIDERS: PCP Internal Medicine; Visit Provider Internal Medicine
DX: F41.9 Anxiety disorder, unspecified (principal); F32.A Depression, unspecified; I10 Essential (primary) hypertension; J45.20 Mild intermittent asthma, uncomplicated; E78.5 Hyperlipidemia, unspecified; E11.9 Type 2 diabetes mellitus without complications
CPT/HCPCS: 36415; 80048; 80061; 82043; 82570; 83036; 84450; 84460

== ENCOUNTER 2024-02-10 08:35 | Outpatient (AMB) | payer OTHER, SELFPAY ==
--- NOTE | 2024-02-10 08:59 | A.OFFPC_ITS ---
Vital Signs 02/10/24 09:00 Height 4 ft 11 in Weight 188 lb BMI 38.0 BP 122/70 Blood Pressure Location Rt brachial Position Sitting Pulse 69 Pulse Source Pulse Oximeter Pulse Oximetry (%) 98 Oxygen Delivery Method Room Air Intake Visit Reasons: 3 mo. f/u labs Intake Note: Pt is here today for her 3mo. f/u labs Allergies azithromycin [From Zithromax Z-German] Allergy (Intermediate, Verified 02/11/24 03:08) RASH, DIARRHEA, VOMIT diphenhydramine [From Benadryl] Adverse Reaction (Intermediate, Verified 02/11/24 03:08) Hallucinations Environmental Allergy (Intermediate, Uncoded 02/11/24 03:08) ITCHY NOSE, COUGH, SNEEZE Medication List - Last Reconciled 02/11/24 by Melissa Marsh MD albuterol sulfate 90 mcg/actuation (ProAir HFA) 2 puffs inhalation Q4-6H PRN bupropion HCl XL 300 mg PO DAILY cholecalciferol (vitamin D3) (Vitamin D3) 50 mcg PO DAILY citalopram 20 mg PO DAILY coenzyme Q10 (Co Q-10) 100 mg PO DAILY fluticasone propion-salmeterol 250-50 mcg/dose (Advair Diskus) 1 inh inhalation BID lisinopril 10 mg PO DAILY metformin 500 mg PO Q12H omeprazole 20 mg PO DAILY psyllium husk (Metamucil) 0.4 grams PO DAILY simvastatin 20 mg PO BEDTIME Tobacco use date assessed: 02/10/24 Dental Screening Dental Screen Date: 02/10/24 Did you have a dental visit in the last 12 months?: No Was dental information given to patient?: Patient has dentist HPI 3 mo. f/u labs HPI Details Sharon is here today for follow-up on her diabetes mellitus, asthma, hypertension and hyperlipidemia. Has been compliant with taking her medications, and diet but admits to not getting any regular exercise. Had recent fasting labs done which diabetes mellitus well controlled with hemoglobin A1c at 6%, fasting lipids, serum electrolytes and renal function and liver enzymes are also within normal limits except for mildly elevated triglycerides. Complains of having intermittent episodes of palpitations, lasting couple of seconds, resolved spontaneously, denies any chest pain, shortness of breath, lightheadedness. These episodes however has been occurring more frequently over the last several weeks. [facility] Medical History History of left breast cancer Intermittent palpitations Anxiety and depression Obesity GERD (gastroesophageal reflux disease) History of anxiety Sleep apnea Essential hypertension Mild intermittent asthma Endometrial cancer Tubular adenoma of colon Breast cancer, left Dyslipidemia Type 2 diabetes mellitus without complication, without long-term current use of insulin Surgical History History of surgical removal of ganglion cyst Hx of cholecystectomy History of excision of pilonidal cyst History of lumpectomy of left breast History of esophagogastroduodenoscopy (EGD) H/O colonoscopy History of total abdominal hysterectomy and bilateral salpingo-oophorectomy Family History Father Alcoholism CAD (coronary artery disease) Stomach cancer Myocardial infarction Mental health disorder Mother Diabetes mellitus Sister Schizophrenia Brother Mental health disorder Maternal Grandmother Uterine cancer Brother No problems noted. Social History Housing: House Alcohol intake: never Patient Tobacco Use Status: Former Tobacco user e-Cigarette/Vaping Use: Never Used Current occupational status: retired Cognitive needs: No Hearing needs: No Vision needs: Yes Questionnaire PHQ-9 Over the last 2 weeks, how often have you been bothered by any of the following problems? Depression Screening Interpretation: Negative Depression Screening Done: Yes Source: Developed by Drs. Trung Quintana, Marshall Ramachandran and colleagues, with an educational shakeel from Figure 1. Thrive Questionnaire Date Thrive assessed: 11/10/23 RIGOBERTO-7 AMB Questionnaire RIGOBERTO-7 Date RIGOBERTO - 7 assessed: 11/10/23 Source: Developed by Drs. Trung Quintana, Marshall Ramachandran and colleagues, with an educational shakeel from Figure 1. ACT Questionnaire In the past 4 weeks, how much of the time did your asthma keep you from getting as much done at work, school or at home?: None of the time During the past 4 weeks, how often have you had shortness of breath?: Not at all During the past 4 weeks, how often did your asthma symptoms wake you up at night or earlier than usual in the morning?: Not at all During the past 4 weeks, how often have you had to use your rescue inhaler or nebulizer medication?: Not at all How would you rate your asthma control during the past 4 weeks?: Completely controlled ACT Interpretation: Negative Score: 25 Review of Systems Const Denies body aches, Denies fatigue, Denies fever(s), Denies headache(s) and Denies weakness Eyes Details: She goes to [facility] for her diabetic retinopathy screening Denies change in vision, Denies eye discharge and Denies itchy eyes ENT Denies dizziness, Denies headache(s), Denies nasal congestion, Denies nasal discharge and Denies sore throat Card Reports as per HPI, Denies chest pain, Denies lightheadedness and Denies dyspnea Resp Denies chest congestion, Denies cough, Denies dyspnea and Denies wheezing GI Denies abdominal pain, Denies change in bowel habits and Denies heartburn Denies urinary frequency, Denies dysuria and Denies urinary urgency Musc Denies abnormal gait, Denies back pain and Denies arthralgias Skin/Breast Details: Scattered raised hyperpigmented patches on chest, and back Neuro Denies abnormal gait, Denies dizziness, Denies headache(s) and Denies weakness Psych Reports as per HPI Endo Denies fatigue, Denies polydipsia and Denies polyuria Damir/Lymph Reports no additional complaints Aller/Immun Denies itchy eyes, Denies seasonal rhinorrhea and Denies wheezing Physical exam (Primary Care) Vital Signs: Last Vital Signs Pulse 69 02/10/24 09:00 BP 122/70 02/10/24 09:00 Pulse Ox 98 02/10/24 09:00 Oxygen Delivery Method Room Air 02/10/24 09:00 BMI result Body Mass Index 38.0 Tobacco/Smoking Status: Tobacco use Status Tobacco use date assessed 02/10/24 02/10/24 09:04 Patient Tobacco Use Status Former Tobacco user 02/10/24 09:04 e-Cigarette/Vaping Use Never Used 02/10/24 09:04 Depression Screening Interpretation: Negative Thrive Assessment: Date of Thrive Assessment Date Thrive assessed 11/10/23 02/10/24 09:04 Const Other: Alert oriented x3, in mild pain distress, ambulatory normal gait Orientation/consciousness: patient oriented x3 HENMT Head: Yes normocephalic Ears: external ears normal, TM's normal bilaterally and EAC's normal General nose exam: Normal external nose present Face and sinus: Yes face symmetric Mouth: Normal oral and palatal mucosa present and moist mucous membranes Eyes General: appearance normal, both eyes and all related structures Neck Neck: Yes full ROM, Yes no lymphadenopathy and Yes supple Resp Auscultation: clear to auscultation bilaterally Cardio Other: S1-S2 present regular rate and rhythm GI Inspection: Yes obesity Palpation (GI): Soft to palpation, nontender, no guarding and no masses General: Yes no CVA tenderness Back/Spine/Pelvis Back: no CVA tenderness Skin Other: Scattered raised hyperpigmented patches on chest, and back Neuro General: patient oriented x3, gait normal, tone normal, moves all extremities and Normal light touch and pain sensation Extrem General: Yes full ROM, Yes no clubbing, cyanosis or edema, Yes no calf tenderness and Yes normal gait Psych Appearance: grossly normal and well kempt Mental Status: mental status grossly normal Speech and movement: Normal speech and movement present Affect: normal affect Thought process: Normal thought process present Results Reviewed Results Reviewed: Laboratory Tests 02/06/24 02/06/24 07:30 07:32 Estimat Average Glucose 126 Hemoglobin A1c % 6.0 Urine Creatinine 182.10 Urine Microalbumin 15.0 Microalb/Creat Ratio 8.2 Name: Sharon Vickers Age/Sex: 63/F : 1960 Unit#: [id number] Attend Dr: Melissa Marsh MD Re02/06/24 Status: DEP [facility]: SPEC : [id number] DARA: 02/06/24 STATUS: COMP REQ : [id number] RECD: 02/06/[address]: Melissa Marsh MD COMP: 02/06/24 ENTERED: 02/06/[address]: ORDERED: Met Prof Fast, AST, ALT, Lipid Panel Test Result Flag Reference Sodium 138 135-145 mmol/L Potassium 4.3 3.3-5.1 mmol/L CL 106 96-108 mmol/L CO2 21 L 22-29 mmol/L Gap 15 12-20 BUN 12 9-16 mg/dL Creat 0.94 0.5-1.4 mg/dL EGFR 60 NOTE: For -Mosotho individuals, multiply the result by 1.210. Chronic Kidney Disease: Estimated GFR < 60 mL/min/1.73m2 Severe Kidney Disease: Estimated GFR < 15 mL/min/1.73m2 FBS 125 H 60-99 mg/dL A fasting glucose from 100-125 mg/dl is considered impaired (pre-diabetes). CA 9.6 8.4-10.2 mg/dL AST (GOT) 18 5-31 U/L ALT (GPT) 17 0-31 U/L Triglyceride 156 H <150 mg/dL Desirable Triglyceride: less than 150 mg/dL Borderline High Triglyceride 150-199 mg/dL High Triglyceride: 200-499 mg/dL Very High Triglyceride: greater than or equal to 5OO mg/dL Cholesterol 133 <200 mg/dL Desirable Cholesterol: less than 200 mg/dL Borderline High Cholesterol: 200-239 mg/dL High Cholesterol: greater than 239 mg/dL LDL Calculated 62 <100 mg/dL Desirable LDL: less than 100 mg/dL Near Optimal/Above Optimal LDL: 110-129 mg/dL Borderline High LDL: 130-159 mg/dL High LDL: 160-189 mg/dL Very High LDL: greater than or equal to 190 mg/dL HDL 40 L >40 mg/dL Desirable HDL: greater than 40 mg/dL Assessment and Plan Assessment & Plan (1) Intermittent palpitations: Code(s): R00.2 - Palpitations Plan: Ordered 3 day Holter monitor (2) Skin lesion of back: Code(s): L98.9 - Disorder of the skin and subcutaneous tissue, unspecified Plan: Referred to [facility] dermatology (3) Type 2 diabetes mellitus without complication, without long-term current use of insulin: Comment: on oral med Code(s): E11.9 - Type 2 diabetes mellitus without complications Plan: Recent lab results reviewed with patient, with sugar and hemoglobin A1c stable and at goal. Continued on metformin a 500 mg twice a day with meals. Reinforced diabetic diet and regular exercise with patient. Counseled regarding importance of yearly diabetes retinopathy screening. Patient advised to inspect feet daily, for any signs of injury, callus or infection. Compliance with diet and regular exercise again stressed. Blood pressure goal is less than 130/80, goal LDL is less than 100 and goal hemoglobin A1c is less than 7% follow-up appointment made in-3--months, after fasting labs done. (4) Dyslipidemia: Code(s): E78.5 - Hyperlipidemia, unspecified Plan: Continue simvastatin 20 mg daily it, recheck fasting lipid levels again in 3 month (5) Mild intermittent asthma: Comment: uses inhaler prn Code(s): J45.20 - Mild intermittent asthma, uncomplicated Qualifiers: Asthma complication type: uncomplicated Qualified Code(s): J45.20 - Mild intermittent asthma, uncomplicated Plan: Stable and controlled on Advair and has albuterol inhaler for episodes of bronchospasm wheezing (6) Essential hypertension: Code(s): I10 - Essential (primary) hypertension Plan: Blood pressure at goal of less than 130/80. Continue with current medication. Reinforced importance of following a low sodium diet, getting regular exercise, and lowering stress levels. Orders: Orders Hemoglobin A1c 05/16/24 E11.9 - Type 2 diabetes mellitus without complications, E66.01 - Morbid (severe) obesity due to excess calories, E78.5 - Hyperlipidemia, unspecified, I10 - Essential (primary) hypertension, J45.20 - Mild intermittent asthma, uncomplicated, Z68.35 - Body mass index [BMI] 35.0-35.9, adult, Z78.0 - Asymptomatic menopausal state, Z85.3 - Personal history of malignant neoplasm of breast Aspartate Amino Transferase 05/16/24 E11.9 - Type 2 diabetes mellitus without complications, E66.01 - Morbid (severe) obesity due to excess calories, E78.5 - Hyperlipidemia, unspecified, I10 - Essential (primary) hypertension, J45.20 - Mild intermittent asthma, uncomplicated, Z68.35 - Body mass index [BMI] 35.0- 35.9, adult, Z78.0 - Asymptomatic menopausal state, Z85.3 - Personal history of malignant neoplasm of breast ECG 3 day holter monitor 02/10/24 R00.2 - Palpitations Lipid Panel 05/16/24 E11.9 - Type 2 diabetes mellitus without complications, E66.01 - Morbid (severe) obesity due to excess calories, E78.5 - Hyperlipidemia, unspecified, I10 - Essential (primary) hypertension, J45.20 - Mild intermittent asthma, uncomplicated, Z68.35 - Body mass index [BMI] 35.0-35.9, adult, Z78.0 - Asymptomatic menopausal state, Z85.3 - Personal history of malignant neoplasm of breast Alanine Aminotransferase 05/16/24 E11.9 - Type 2 diabetes mellitus without complications, E66.01 - Morbid (severe) obesity due to excess calories, E78.5 - Hyperlipidemia, unspecified, I10 - Essential (primary) hypertension, J45.20 - Mild intermittent asthma, uncomplicated, Z68.35 - Body mass index [BMI] 35.0- 35.9, adult, Z78.0 - Asymptomatic menopausal state, Z85.3 - Personal history of malignant neoplasm of breast Basic Metabolic Panel Fasting 05/16/24 E11.9 - Type 2 diabetes mellitus without complications, E66.01 - Morbid (severe) obesity due to excess calories, E78.5 - Hyperlipidemia, unspecified, I10 - Essential (primary) hypertension, J45.20 - Mild intermittent asthma, uncomplicated, Z68.35 - Body mass index [BMI] 35.0- 35.9, adult, Z78.0 - Asymptomatic menopausal state, Z85.3 - Personal history of malignant neoplasm of breast Vitamin D 25-OH Total 05/16/24 E11.9 - Type 2 diabetes mellitus without complications, E66.01 - Morbid (severe) obesity due to excess calories, E78.5 - Hyperlipidemia, unspecified, I10 - Essential (primary) hypertension, J45.20 - Mild intermittent asthma, uncomplicated, Z68.35 - Body mass index [BMI] 35.0- 35.9, adult, Z78.0 - Asymptomatic menopausal state, Z85.3 - Personal history of malignant neoplasm of breast Referrals Dermatology Referral L98.9 - Disorder of the skin and subcutaneous tissue, unspecified, Z12.83 - Encounter for screening for malignant neoplasm of skin Coding Level of Care Code Est Pt Level 4 (60960) Complex EM visit Add On G2211 Diagnoses Intermittent palpitations R00.2 Skin lesion of back L98.9 Type 2 diabetes mellitus without complication, without long-term current use of insulin E11.9 Dyslipidemia E78.5 Mild intermittent asthma without complication J45.20 Asthma complication type: uncomplicated Essential hypertension I10
[2024-02-10 09:00] VITALS: BP 122/70; PULSE 69; O2SAT 98; BMI 38.0
== END 2024-02-10 10:15 | disposition home or self-care (01) ==
PROVIDERS: PCP Internal Medicine; Visit Provider Internal Medicine
DX: R00.2 Palpitations (principal); L98.9 Disorder of the skin and subcutaneous tissue, unspecified; E11.9 Type 2 diabetes mellitus without complications; E78.5 Hyperlipidemia, unspecified; J45.20 Mild intermittent asthma, uncomplicated; I10 Essential (primary) hypertension
CPT/HCPCS: 99214; G2211

== ENCOUNTER → 2024-03-09 08:21 | Outpatient (REF) | payer OTHER, SELFPAY ==
--- NOTE | 2024-03-09 08:23 | HM_ITS ---
Conclusion: 1. Patient was monitored for total period of 2 days and 22 hours 2. Baseline was normal sinus rhythm with average heart of 91 beats per minute 3. Frequent sinus tachycardia noted with 26% of time heart rate about 100 beats per minute 4. No significant pauses or arrhythmias detected 5. Patient marked 1 counter without any associated symptoms correlating with sinus rhythm MTDD
== END ==
LOC: HO.CARD 08:21
PROVIDERS: PCP Internal Medicine; Visit Provider Internal Medicine
DX: R00.2 Palpitations (principal)
CPT/HCPCS: 93242

== ENCOUNTER → 2024-03-09 08:23 | Outpatient (BNV) | payer OTHER, SELFPAY | PROVIDERS: PCP Internal Medicine; Visit Provider Internal Medicine Cardiovascular Disease | DX: R00.0 Tachycardia, unspecified (principal) | CPT/HCPCS: 93244 ==

== ENCOUNTER 2024-08-02 09:54 | Outpatient (AMB) | payer MEDICARE, SELFPAY ==
--- NOTE | 2024-08-02 10:02 | AM.OFFWIN_ITS ---
Intake Vital Signs 08/02/24 10:15 Height 4 ft 11 in Weight 188 lb BMI 38.0 BP 130/80 Blood Pressure Location Rt brachial Position Sitting Pulse 92 Pulse Source Pulse Oximeter Pulse Oximetry (%) 97 Oxygen Delivery Method Room Air Intake Visit Reasons: EP ? UTI Patient Tobacco Use Status: Former Tobacco user Allergies azithromycin [From Zithromax Z-German] Allergy (Intermediate, Verified 08/02/24 10:16) RASH, DIARRHEA, VOMIT diphenhydramine [From Benadryl] Adverse Reaction (Intermediate, Verified 08/02/24 10:16) Hallucinations Environmental Allergy (Intermediate, Uncoded 08/02/24 10:16) ITCHY NOSE, COUGH, SNEEZE HPI HPI Comments History of Present Illness Details History of Present Illness The patient is a 64 year old female presenting with lower abdominal pain and suspected urinary tract infection. The patient reports experiencing discomfort predominantly in the lower abdomen, particularly above the pubic region. The onset of symptoms was on Friday night, now persisting for three days. She notes discomfort manifesting as a burning sensation that intensifies when walking. The patient denies dysuria, hematuria, fever, or flank pain. She has a history of Type 2 Diabetes mellitus, with her most recent Hemoglobin A1c recorded at 6.2, indicating reasonable glycemic control. 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 She also recounts the need for effortful micturition. Her surgical history includes a total abdominal hysterectomy, with a resultant midline scar, raising concerns about possible scar tissue involvement. Additionally, she is managing gastroesophageal reflux disease with daily omeprazole use. Physical Exam General: Cooperative, healthy appearing, comfortable, no acute distress and well developed Orientation: Patient oriented x3 Limitations: No limitations Head: Normal to inspection Ears: Hearing grossly normal bilaterally Nose: Normal external nose present Face and sinus: Normal facial exam Eyes: Appearance normal, both eyes and all related structures Neck: Normal visual inspection and Yes full ROM Respiratory: Normal respiratory effort and able to speak in complete sentences. GI: Tender to palpation in the lower abdomen, particularly above the pubic area Skin: No rashes or lesions noted Neuro: Patient oriented x3 Extremities: Normal to inspection [facility] Medical History History of left breast cancer Intermittent palpitations Anxiety and depression Obesity GERD (gastroesophageal reflux disease) History of anxiety Sleep apnea Essential hypertension Mild intermittent asthma Endometrial cancer Tubular adenoma of colon Breast cancer, left Dyslipidemia Type 2 diabetes mellitus without complication, without long-term current use of insulin Surgical History History of surgical removal of ganglion cyst Hx of cholecystectomy History of excision of pilonidal cyst History of lumpectomy of left breast History of esophagogastroduodenoscopy (EGD) H/O colonoscopy History of total abdominal hysterectomy and bilateral salpingo-oophorectomy Family History Father Alcoholism CAD (coronary artery disease) Stomach cancer Myocardial infarction Mental health disorder Mother Diabetes mellitus Sister Schizophrenia Brother Mental health disorder Maternal Grandmother Uterine cancer Brother No problems noted. Social History Housing: House Alcohol intake: never Patient Tobacco Use Status: Former Tobacco user e-Cigarette/Vaping Use: Never Used Current occupational status: retired Cognitive needs: No Hearing needs: No Vision needs: Yes Review of Systems Const All systems reviewed & are unremarkable except as noted in HPI and below Physical Exam Vital Signs: Last Vital Signs Pulse 92 08/02/24 10:15 BP 130/80 08/02/24 10:15 Pulse Ox 97 08/02/24 10:15 Oxygen Delivery Method Room Air 08/02/24 10:15 BMI result Body Mass Index 38.0 Results AMB Urinalysis, Automated UA Leukoctes 15 Ramses/uL Last Edit by LIDIA Corey on 08/02/24 11:1 8 UA Nitrite Negative Last Edit by LIDIA Corey on 08/02/24 11:18 UA Urobilinogen 0.2 mg/dL Last Edit by LIDIA Corey on 08/02/24 11:18 UA Protein 0 mg/dL Last Edit by LIDIA Corey on 08/02/24 11:18 UA pH 6.0 Last Edit by LIDIA Corey on 08/02/24 11:18 UA Blood 0 Temo/uL Last Edit by LIDIA Corey on 08/02/24 11:18 UA Specific [place] 1.015 Last Edit by LIDIA Corey on 08/02/24 11:18 UA Ketone Negative Last Edit by Kay Mcmahan CCM on 08/02/24 11:18 UA Bilirubin 0 mg/dL Last Edit by Kay Mcmahan CCM on 08/02/24 11:18 UA Glucose 0 mg/dL Last Edit by Kay Mcmahan [facility] on 08/02/24 11:18 Results Reviewed Results Reviewed: Laboratory Last Values Urine pH (Auto) 6.0 08/02/24 11:16 Specific [place] (Auto) 1.015 08/02/24 11:16 Urine Protein (Auto) 0 mg/dL 08/02/24 11:16 Glucose (UA)(Auto) 0 mg/dL 08/02/24 11:16 Urine Ketones (Auto) Negative 08/02/24 11:16 Urine Blood (Auto) 0 Temo/uL 08/02/24 11:16 Urine Nitrite (Auto) Negative 08/02/24 11:16 Urine Bilirubin (Auto) 0 mg/dL 08/02/24 11:16 Urine Urobilinogen (Auto) 0.2 mg/dL 08/02/24 11:16 Leukocyte Esterase (Auto) 15 Ramses/uL 08/02/24 11:16 Assessment & Plan Assessment & Plan (1) UTI (urinary tract infection): Code(s): N39.0 - Urinary tract infection, site not specified Qualifiers: Urinary tract infection type: acute cystitis Hematuria presence: without hematuria Qualified Code(s): N30.00 - Acute cystitis without hematuria Plan: Plan For the Urinary Tract Infection, I will initiate empirical treatment with an ap propriate antibiotic for five days. A urine culture has been sent to identify the specific pathogen and guide potential adjustment of therapy. Interaction concerns with omeprazole were addressed, suggesting temporary substitution with Tums if gastrointestinal symptoms arise due to altered antibiotic absorption. For Gastroesophageal Reflux Disease, the temporary discontinuation of omeprazole during antibiotic therapy was suggested to prevent interaction. Tums is recommended as an alternative to manage acid reflux. All instructions were provided, and the patient is advised to report any worsen ing or change in symptoms. No checkout is required after providing necessary prescriptions and directives. Patient was informed and verbally consented to the use of an ambient scribe for clinic note documentation during this visit. Orders: Orders Urine Culture Today N39.0 - Urinary tract infection, site not specified AMB Urinalysis Automated Today Z13.9 - Encounter for screening, unspecified Medications: New cefuroxime axetil 500 mg PO Q12H 10 tabs 0RF Coding Level of Care Code Est Pt Level 3 (49959) Diagnoses Acute cystitis without hematuria N30.00 Urinary tract infection type: acute cystitis Hematuria presence: without hematuria
[2024-08-02 10:15] VITALS: BP 130/80; PULSE 92; O2SAT 97; BMI 38.0
--- NOTE | 2024-08-02 10:15 | MHC.OFFWIV ---
Intake Vital Signs 08/02/24 10:15 Height 4 ft 11 in Weight 188 lb BMI 38.0 BP 130/80 Blood Pressure Location Rt brachial Position Sitting Pulse 92 Pulse Source Pulse Oximeter Pulse Oximetry (%) 97 Oxygen Delivery Method Room Air Intake Visit Reasons: EP ? UTI Intake Note: Patient here for lower abd pain that started friday night. Patient Tobacco Use Status: Former Tobacco user Allergies azithromycin [From Zithromax Z-German] Allergy (Intermediate, Verified 08/02/24 10:16) RASH, DIARRHEA, VOMIT diphenhydramine [From Benadryl] Adverse Reaction (Intermediate, Verified 08/02/24 10:16) Hallucinations Environmental Allergy (Intermediate, Uncoded 08/02/24 10:16) ITCHY NOSE, COUGH, SNEEZE Do you need a note to return to daycare/school/sports/work: No HPI HPI Comments History of Present Illness Details History of Present Illness The patient is a 64 year old female presenting with lower abdominal pain and suspected urinary tract infection. The patient reports experiencing discomfort predominantly in the lower abdomen, particularly above the pubic region. The onset of symptoms was on Friday night, now persisting for three days. She notes discomfort manifesting as a burning sensation that intensifies when walking. The patient denies dysuria, hematuria, fever, or flank pain. She has a history of Type 2 Diabetes mellitus, with her most recent Hemoglobin A1c recorded at 6.2, indicating reasonable glycemic control. Physical Exam General: Cooperative, healthy appearing, comfortable, no acute distress and well developed Orientation: Patient oriented x3 Limitations: No limitations Head: Normal to inspection Ears: Hearing grossly normal bilaterally Nose: Normal external nose present Face and sinus: Normal facial exam Eyes: Appearance normal, both eyes and all related structures Neck: Normal visual inspection and Yes full ROM Respiratory: Normal respiratory effort and able to speak in complete sentences. GI: Tender to palpation in the lower abdomen, particularly above the pubic area Skin: No rashes or lesions noted Neuro: Patient oriented x3 Extremities: Normal to inspection [facility] Medical History History of left breast cancer Intermittent palpitations Anxiety and depression Obesity GERD (gastroesophageal reflux disease) History of anxiety Sleep apnea Essential hypertension Mild intermittent asthma Endometrial cancer Tubular adenoma of colon Breast cancer, left Dyslipidemia Type 2 diabetes mellitus without complication, without long-term current use of insulin Surgical History History of surgical removal of ganglion cyst Hx of cholecystectomy History of excision of pilonidal cyst History of lumpectomy of left breast History of esophagogastroduodenoscopy (EGD) H/O colonoscopy History of total abdominal hysterectomy and bilateral salpingo-oophorectomy Family History Father Alcoholism CAD (coronary artery disease) Stomach cancer Myocardial infarction Mental health disorder Mother Diabetes mellitus Sister Schizophrenia Brother Mental health disorder Maternal Grandmother Uterine cancer Brother No problems noted. Social History Housing: House Alcohol intake: never Patient Tobacco Use Status: Former Tobacco user e-Cigarette/Vaping Use: Never Used Current occupational status: retired Cognitive needs: No Hearing needs: No Vision needs: Yes Review of Systems Const All systems reviewed & are unremarkable except as noted in HPI and below Physical Exam Vital Signs: Last Vital Signs Pulse 92 08/02/24 10:15 BP 130/80 08/02/24 10:15 Pulse Ox 97 08/02/24 10:15 Oxygen Delivery Method Room Air 08/02/24 10:15 BMI result Body Mass Index 38.0 Assessment & Plan Assessment & Plan (1) UTI (urinary tract infection): Code(s): N39.0 - Urinary tract infection, site not specified Qualifiers: Hematuria presence: without hematuria Urinary tract infection type: acute cystitis Qualified Code(s): N30.00 - Acute cystitis without hematuria Plan: Plan For the Urinary Tract Infection, I will initiate empirical treatment with an appropriate antibiotic for five days. A urine culture has been sent to identify the specific pathogen and guide potential adjustment of therapy. Interaction concerns with omeprazole were addressed, suggesting temporary substitution with Tums if gastrointestinal symptoms arise due to altered antibiotic absorption. Regarding Diabetes Mellitus, the patient is advised to maintain her current management regimen, as her blood sugars appear to be under reasonable control. Dietary and medication adherence are encouraged to sustain glycemic levels. For Gastroesophageal Reflux Disease, the temporary discontinuation of omeprazole during antibiotic therapy was suggested to prevent interaction. Tums is recommended as an alternative to manage acid reflux. All instructions were provided, and the patient is advised to report any worsening or change in symptoms. No checkout is required after providing necessary prescriptions and directives. Patient was informed and verbally consented to the use of an ambient scribe for clinic note documentation during this visit. Orders: Orders Urine Culture Today N39.0 - Urinary tract infection, site not specified Medications: New cefuroxime axetil 500 mg PO Q12H 10 tabs 0RF Coding Level of Care Code Est Pt Level 3 (52194) Diagnoses Acute cystitis without hematuria N30.00 Hematuria presence: without hematuria Urinary tract infection type: acute cystitis
== END 2024-08-02 10:42 | disposition home or self-care (01) ==
PROVIDERS: PCP Internal Medicine; Visit Provider Physician Assistant
DX: N30.00 Acute cystitis without hematuria (principal)

== ENCOUNTER 2024-08-02 09:54 | Outpatient (REF) | payer OTHER, SELFPAY | END 2024-08-02 09:55 | disposition home or self-care (01) | LOC: HO.LAB 09:54 | PROVIDERS: PCP Internal Medicine | DX: N30.00 Acute cystitis without hematuria (principal) | CPT/HCPCS: 81003; 87086; 99212 ==

== ENCOUNTER 2025-03-03 07:00 | Outpatient (REF) | payer MEDICARE, SELFPAY ==
[2025-03-03 11:07] LABS: Hemoglobin A1C 170.1604 umol/L; Total Hemoglobin (HGBA1C) 3558.2069 umol/L
[2025-03-03 11:29] LABS: Alanine Aminotransferase 23 U/L (0-31); Anion Gap 14 (12-20); Aspartate Amino Transferase 26 U/L (5-31); Blood Urea Nitrogen 13 mg/dL (9-16); Calcium 9.3 mg/dL (8.4-10.2); Carbon Dioxide 26 mmol/L (22-29); Chloride 102 mmol/L (96-108); Cholesterol 124 mg/dL (<200); Estimated Glomerular Filt Rate 52; HDL Cholesterol 39 mg/dL (>40); Potassium 4.3 mmol/L (3.3-5.1); Sodium 138 mmol/L (135-145); Triglycerides 168 mg/dL (<150)
== END 2025-03-03 07:01 | disposition home or self-care (01) ==
LOC: HO.HMGCLDS 07:00
PROVIDERS: PCP Internal Medicine; Visit Provider Internal Medicine
DX: E11.9 Type 2 diabetes mellitus without complications (principal); Z68.35 Body mass index [BMI] 35.0-35.9, adult; I10 Essential (primary) hypertension; J45.20 Mild intermittent asthma, uncomplicated; E78.5 Hyperlipidemia, unspecified; Z78.0 Asymptomatic menopausal state; Z85.3 Personal history of malignant neoplasm of breast; E66.01 Morbid (severe) obesity due to excess calories
CPT/HCPCS: 36415; 80048; 80061; 82306; 83036; 84450; 84460

== ENCOUNTER 2025-03-10 08:18 | Outpatient (AMB) | payer MEDICARE, SELFPAY ==
--- NOTE | 2025-03-10 08:22 | A.OFFPC_ITS ---
Vital Signs 03/10/25 08:26 Height 4 ft 11 in Weight 185 lb BMI 37.4 BP 114/72 Blood Pressure Location Rt brachial Position Sitting Respiration 16 Pulse 86 Pulse Source Pulse Oximeter Temp 98.1 F Temp Source Oral Intake Visit Reasons: Annual PE Intake Note: Pt is here today for her PE: [place] [facility] [place] in progress: colonoscopy 07/11/20 Allergies azithromycin (From Zithromax Z-German) Allergy (Intermediate, Verified 03/10/25 08:44) RASH, DIARRHEA, VOMIT diphenhydramine (From Benadryl) Adverse Reaction (Intermediate, Verified 03/10/25 08:44) Hallucinations Environmental Allergy (Intermediate, Uncoded 03/10/25 08:44) ITCHY NOSE, COUGH, SNEEZE Medication List - Last Reconciled 03/10/25 by Melissa Marsh MD albuterol sulfate 90 mcg/actuation 2 puffs inhalation Q4-6H PRN bupropion HCl XL 300 mg PO DAILY cholecalciferol (vitamin D3) (Vitamin D3) 50 mcg PO DAILY citalopram 20 mg PO DAILY coenzyme Q10 (Co Q-10) 100 mg PO DAILY lisinopril 10 mg PO DAILY omeprazole 20 mg PO DAILY psyllium husk (Metamucil) 0.4 grams PO DAILY simvastatin 20 mg PO BEDTIME Tobacco use date assessed: 03/10/25 Fall risk assessment: No Falls in past year Last assessed Fall Risk: 03/10/25 Dental Screening Dental Screen Date: 03/10/25 Did you have a dental visit in the last 12 months?: Yes Did you have a dental problem in the last 6 months where you did not have access to dental care?: Yes Was dental information given to patient?: Patient has dentist HPI Annual PE HPI Details 64-year-old lady with history of breast cancer, diabetes mellitus, hypertension, obesity, anxiety depression and mild intermittent asthma, here today for her physical exam. Patient previously was on metformin but stopped approximately a month ago as she has been developing muscle cramps and diarrhea, stopped after discontinuing the medication. Has not been checking her glucose levels as she could not find her machine. Has been trying to follow recommended diet and has been more active. Up-to-date with her screening mammogram had it done yesterday with results still pending. Up-to-date with her screening colonoscopy last done by Dr. Osborne in 2023 showing only internal hemorrhoids but due to history of tubular adenoma polyps removed in the past repeat due again in 2028. [facility] Medical History (Updated 03/10/25 @ 09:25 by Melissa Marsh MD) History of adenomatous polyp of colon History of endometrial cancer History of left breast cancer Intermittent palpitations Anxiety and depression Obesity GERD (gastroesophageal reflux disease) History of anxiety Sleep apnea Essential hypertension Mild intermittent asthma Endometrial cancer Tubular adenoma of colon Breast cancer, left Dyslipidemia Type 2 diabetes mellitus without complication, without long-term current use of insulin Surgical History History of surgical removal of ganglion cyst Hx of cholecystectomy History of excision of pilonidal cyst History of lumpectomy of left breast History of esophagogastroduodenoscopy (EGD) H/O colonoscopy History of total abdominal hysterectomy and bilateral salpingo-oophorectomy Family History Father Alcoholism CAD (coronary artery disease) Stomach cancer Myocardial infarction Mental health disorder Mother Diabetes mellitus Sister Schizophrenia Brother Mental health disorder Maternal Grandmother Uterine cancer Brother No problems noted. Social History Housing: House Alcohol intake: never Patient Tobacco Use Status: Former Tobacco user e-Cigarette/Vaping Use: Never Used Current occupational status: retired Cognitive needs: No Hearing needs: No Vision needs: Yes Questionnaire PHQ-9 Over the last 2 weeks, how often have you been bothered by any of the following problems? 1. Little interest or pleasure in doing things: nearly every day 2. Feeling down, depressed, or hopeless: nearly every day 3. Trouble falling or staying asleep, or sleeping too much: more than half the days 4. Feeling tired or having little energy: nearly every day 5. Poor appetite or overeating: nearly every day 6. Feeling bad about yourself - or that you are a failure or have let yourself or your family down: nearly every day 7. Trouble concentrating on things, such as reading the newspaper or watching television: more than half the days 8. Moving or speaking so slowly that other people could have noticed. Or the opposite - being so fidgety or restless that you have been moving around a lot more than usual: more than half the days 9. Thoughts that you would be better off or of hurting yourself in some way: not at all Total score: 21 Depression Screening Interpretation: Positive (Already on bupropion and citalopram does not want to see psychiatrist but willing to see a therapist) Depression Screening Follow-up: Existing condition, In treatment and Community Mental Health Worker F/U Depression Screening Done: Yes 70424 - PHQ-9 Billing: Yes Source: Developed by Drs. Trung Quintana, Janay Mcdaniel, Marshall Everett and colleagues, with an educational shakeel from [employer]. Thrive Questionnaire Date Thrive assessed: 03/10/25 RIGOBERTO-7 AMB Questionnaire RIGOBERTO-7 Date RIGOBERTO - 7 assessed: 11/10/23 Source: Developed by Drs. Trung Quintana, Janay Mcdaniel, Marshall Everett and colleagues, with an educational shakeel from [employer]. Physical exam (Primary Care) Vital Signs: Last Vital Signs Temp 98.1 F 03/10/25 08:26 Pulse 86 03/10/25 08:26 Resp 16 03/10/25 08:26 BP 114/72 03/10/25 08:26 BMI result Body Mass Index 37.4 Tobacco/Smoking Status: Tobacco use Status Tobacco use date assessed 03/10/25 03/10/25 08:24 Patient Tobacco Use Status Former Tobacco user 03/10/25 08:23 e-Cigarette/Vaping Use Never Used 03/10/25 08:23 PHQ-9: PHQ-9 Score PHQ-9: Total score 21 03/10/25 09:01 Depression Screening Interpretation: Positive (Already on bupropion and citalop martin does not want to see psychiatrist but willing to see a therapist) Depression Screening Follow-up: Existing condition, In treatment and Community Mental Health Worker F/U Thrive Assessment: Date of Thrive Assessment Date Thrive assessed 03/10/25 03/10/25 08:23 Immunizations pneumoc 20-tadeo conj-dip cr(PF) 0.5 mL IM syringe Performing Provider: Melissa Marsh MD Performing Location: [facility] Administered by: Rupal Rodriguez CMA on 03/10/25 09:14 Dose Route Admin Location Dispensed Lot Number Expiration Date [facility] [place] [employer] 0.5 mL IM Right Deltoid 0.5 mL [id number] 02/21/26 [employer]YLE[employer] Total Dispensed Waste 0.5 mL 0 % VIS Given Date VIS Provided VIS Publication Date 03/10/25 Single Vaccine 25 Eligibility Eligibility Date Funding Source Not [facility] Eligible 03/10/25 Private Results Reviewed Results Reviewed: Laboratory Tests 03/03/25 07:06 Estimat Average Glucose 140 Hemoglobin A1c % 6.5 H Name: Sharon Vickers Age/Sex: 64/F : 1960 Unit#: [id number] Attend Dr: Melissa Marsh MD Re03/03/25 Status: DEP REF Location: [facility] Disch: SPEC : [id number] DARA: 03/03/25 STATUS: COMP REQ : [id number] RECD: 03/03/25-[address]: Melissa Marsh MD COMP: 03/03/25 ENTERED: 03/03/[address]: ORDERED: Met Prof Fast, AST, ALT, Lipid Panel, Vitamin D 25-OH Test Result Flag Reference Sodium 138 135-145 mmol/L Potassium 4.3 3.3-5.1 mmol/L CL 102 96-108 mmol/L CO2 26 22-29 mmol/L Gap 14 12-20 BUN 13 9-16 mg/dL Creat 1.06 0.5-1.4 mg/dL eGFR 52 Chronic Kidney Disease: Estimated GFR < 60 mL/min/1.73m2 Severe Kidney Disease: Estimated GFR < 15 mL/min/1.73m2 FBS 146 H 60-99 mg/dL A fasting glucose of 126 mg/dl or greater on more than one occasion is considered diagnostic of diabetes. CA 9.3 8.4-10.2 mg/dL AST (GOT) 26 5-31 U/L ALT (GPT) 23 0-31 U/L Triglyceride 168 H <150 mg/dL Desirable Triglyceride: less than 150 mg/dL Borderline High Triglyceride 150-199 mg/dL High Triglyceride: 200-499 mg/dL Very High Triglyceride: greater than or equal to 5OO mg/dL Cholesterol 124 <200 mg/dL Desirable Cholesterol: less than 200 mg/dL Borderline High Cholesterol: 200-239 mg/dL High Cholesterol: greater than 239 mg/dL LDL Calculated 52 <100 mg/dL Desirable LDL: less than 100 mg/dL Near Optimal/Above Optimal LDL: 110-129 mg/dL Borderline High LDL: 130-159 mg/dL High LDL: 160-189 mg/dL Very High LDL: greater than or equal to 190 mg/dL HDL 39 L >40 mg/dL Desirable HDL: greater than 40 mg/dL Note: This HDL assay may give artificially low results in patients with liver disease. Vitamin D 25-OH 104.4 >30 ng/mL Health Based Reference Values* < 20 ng/mL Deficient 20-30 ng/mL Insufficient > 30 ng/mL Sufficient Coding Level of Care Code Est Pt Prev Care >65y(73118) Diagnoses Annual visit for general adult medical examination with abnormal findings Z00.01 History of endometrial cancer Z85.42 Type 2 diabetes mellitus without complication, without long-term current use of insulin E11.9 Anxiety and depression F41.9; F32.A Essential hypertension I10 Dyslipidemia E78.5 Class 2 severe obesity due to excess calories with serious comorbidity and body mass index (BMI) of 35.0 to 35.9 in adult E66.01; Z68.35 Body mass index: BMI 35.0-35.9 Obesity classification: adult class 2 (BMI 35 - 39.9) Obesity type: due to excess calories Serious obesity comorbidity presence: with serious comorbidity History of adenomatous polyp of colon Z86.0101 Mild intermittent asthma without complication J45.20 Asthma complication type: uncomplicated History of left breast cancer Z85.3 Advanced directives, counseling/discussion Z71.89 Additional Codes PHQ-9 - 04878 - PHQ-9 Billing: Yes ([id number]) Assessment & Plan Assessment & Plan (1) Annual visit for general adult medical examination with abnormal findings: Code(s): Z00.01 - Encounter for general adult medical examination with abnormal findings Plan: Recent fasting lab results reviewed with patient. Recommended dental visit every 6 months and regular eye exams, at least every year, patient states she will schedule an appointment with [facility] for her diabetes retinopathy screening. Take adequate calcium in diet and vitamin-D 3 at 2000 IU per cap once a day, in addition to weight-bearing exercises to help maintain good muscle tone and weight control. Bone density scan ordered. Up-to-date with her scr eening mammogram and colon cancer screening. Up-to-date with her vaccines, Prevnar 20 given today. Reminded to get yearly flu shot (2) History of endometrial cancer: Code(s): Z85.42 - Personal history of malignant neoplasm of other parts of uterus Category: Medical Plan: OBGYN referral ordered, previously was being seen by Dr. Hercules, who has now retired (3) Type 2 diabetes mellitus without complication, without long-term current use of insulin: Comment: on oral med Code(s): E11.9 - Type 2 diabetes mellitus without complications Category: Medical Plan: Stopped metformin due to side effects, started on Ozempic 0.25 mg injected subcu taneously once a week. Discussed possible side effects of the medication and proper administration. See clinical trial educator for guidance. Patient states she will schedule an appointment [facility] for her diabetes eye exam. See her back for follow-up in 3 months after fasting labs done (4) Anxiety and depression: Code(s): F41.9 - Anxiety disorder, unspecified; F32.A - Depression, unspecified Category: Medical Plan: Currently on citalopram and bupropion, still having recurrent episodes of depression, does not want to see a psychiatrist at this time, but referred for counseling (5) Essential hypertension: Code(s): I10 - Essential (primary) hypertension Category: Medical Plan: Blood pressure at goal of less than 130/80. Continue with lisinopril Reinforced importance of following a low sodium diet, getting regular exercise, and lowering stress levels. (6) Dyslipidemia: Code(s): E78.5 - Hyperlipidemia, unspecified Category: Medical Plan: Fasting lipid panel are within normal limits, continue with simvastatin 20 mg at bedtime (7) Obesity: Code(s): E66.9 - Obesity, unspecified Category: Medical Qualifiers: Body mass index: BMI 35.0-35.9 Obesity classification: adult class 2 (BMI 35 - 39.9) Obesity type: due to excess calories Serious obesity comorbidity presence: with serious comorbidity Qualified Code(s): E66.01 - Morbid (severe) obesity due to excess calories; Z68.35 - Body mass index [BMI] 35.0-35.9, adult Plan: Reinforced importance of doing at least 150 minutes of moderate intensity exercise in a week, and adherence to healthy eating habits. She was started on Ozempic as well on this visit (8) History of adenomatous polyp of colon: Code(s): Z86.0101 - Personal history of adenomatous and serrated colon polyps Category: Medical Plan: Up-to-date with her screenin colonoscopy last done by Dr. Osborne in 2023, repeat due again in 2028 (9) Mild intermittent asthma: Comment: uses inhaler prn Code(s): J45.20 - Mild intermittent asthma, uncomplicated Category: Medical Qualifiers: Asthma complication type: uncomplicated Qualified Code(s): J45.20 - Mild intermittent asthma, uncomplicated Plan: Controlled, rarely needing to use her albuterol inhaler, Prevnar 20 given today (10) History of left breast cancer: Code(s): Z85.3 - Personal history of malignant neoplasm of breast Category: Medical Plan: Up-to-date with her yearly screening mammograms, followed by hematology oncology at [facility], sees Dr. Jameson only, has an upcoming appointment next month for follow-up (11) Advanced directives, counseling/discussion: Code(s): Z71.89 - Other specified counseling Plan: Initiated the conversation about Advanced Directives. Advanced Directives help patients prepare for current and future decisions about their medical treatment and place of care. Discussed with patient that it is a process where a patients current condition and prognosis are reviewed, their wishes for information regarding their illness are elicited, and likely medical dilemmas are presented and options discussed. MOLST and healthcare proxy form completed today. These forms can be amended as needed, reviewed yearly and make changes as needed Orders: Orders Hemoglobin A1c 05/25/25 Z13.820 - Encounter for screening for osteoporosis, Z78.0 - Asymptomatic menopausal state Lipid Panel 05/25/25 Z13.820 - Encounter for screening for osteoporosis, Z78.0 - Asymptomatic menopausal state Basic Metabolic Panel Fasting 05/25/25 Z13.820 - Encounter for screening for osteoporosis, Z78.0 - Asymptomatic menopausal state XR DEXA axial skeleton Today Z13.820 - Encounter for screening for osteoporosis, Z78.0 - Asymptomatic menopausal state Microalbumin, Random (w Creat) 05/25/25 Z13.820 - Encounter for screening for osteoporosis, Z78.0 - Asymptomatic menopausal state Aspartate Amino Transferase 05/25/25 Z13.820 - Encounter for screening for osteoporosis, Z78.0 - Asymptomatic menopausal state Alanine Aminotransferase 05/25/25 Z13.820 - Encounter for screening for osteop orosis, Z78.0 - Asymptomatic menopausal state Pneumococcal 20 Immunization Today Z23 - Encounter for immunization Referrals [employer] INST[employer]ER Referral Z85.42 - Personal history of malignant neoplasm of other parts of uterus Medications: New Ozempic (semaglutide) for 4 weeks 0.25 mg (0.368 mL) subcut QWEEK 3 mL 3RF 30 days NS E11.9 - Type 2 diabetes mellitus without complications
--- OUTSIDE RECORDS SUMMARY | 2025-03-10 08:23 | XMS_ITS | Clinical Summary ---
Author Organization [facility] Address [address] [place] [address] Care Team Providers Care Group Exercise Manager Name Role Phone Musa Lozoya MD Primary Care Provider Unav ailable Allergies Active Allergy Reactions Severity Noted Date Comments Benadryl Allergy hallucinations Medium 10/20/2017 Azithromycin Nausea and Vomiting Medium 10/20/2017 Medications Medication Sig Dispensed Refills Start Date End Date Status MetFORMIN HCl 500 MG TABLET SR 24 HRIndications:Type 2 diabetes mellitus without complication, without long-term current use of insulin ([facility]) Take 500 mg by mouth 2 times daily. 0 Active lisinopril (PRINIVIL,ZESTRIL) 5 MG tabletIndications:Typ e 2 diabetes mellitus without complication, without long-term current use of insulin ([facility]) Take 5 mg by mouth daily. 0 Active ALBUTEROL SULFATE HFA INIndications:Type 2 diabetes mellitus without complication, without long-term current use of insulin ([facility]) Inhale 1 Puff into the lungs as needed. 0 Active ALBUTEROL SULFATE 108 (90 BASE) MCG/ACT Aero SolnIndications:Type 2 diabetes mellitus without complication, without long-term current use of insulin ([facility]) Inhale 2 Puffs into the lungs every 4 hours as needed. 0 Active Coenzyme Q10 (CO Q 10) 100 MG CapIndications:Type 2 diabetes mellitus without complication, without long-term current use of insulin ([facility]) Take 1 Tab by mouth daily. 0 Active simvastatin (ZOCOR) 20 MG tabletIndications:Typ e 2 diabetes mellitus without complication, without long-term current use of insulin ([facility]) Take 20 mg by mouth at bedtime. 0 Active omeprazole (PRILOSEC) 20 MG capsuleIndications:Ty pe 2 diabetes mellitus without complication, without long-term current use of insulin ([facility]) Take 20 mg by mouth daily. 0 Active Cetirizine HCl 10 MG CapIndications:Type 2 diabetes mellitus without complication, without long-term current use of insulin ([facility]) Take 1 Tab by mouth daily. 0 Active citalopram (CELEXA) 20 MG tabletIndications:Typ e 2 diabetes mellitus without complication, without long-term current use of insulin ([facility]) Take 20 mg by mouth daily. 0 Active benzonatate (TESSALON) 200 MG capsuleIndications:Ty pe 2 diabetes mellitus without complication, without long-term current use of insulin ([facility]) Take 200 mg by mouth 3 times daily as needed. 0 Active BENZOCAINE-ICHTHAMMOL -SULFUR EXIndications:Type 2 diabetes mellitus without complication, without long-term current use of insulin ([facility]) Apply topically at bedtime. 0 Active estradiol (VIVELLE-DOT) 0.075 MG/24HRIndications:Ty pe 2 diabetes mellitus without complication, without long-term current use of insulin ([facility]) Place 1 Patch onto the skin twice a week. 24 Patch 4 10/20/2017 Active conjugated estrogens (PREMARIN) vaginal creamIndications:Urin tremaine incontinence, mixed,Atrophic vaginitis,Obesity, unspecified classification, unspecified obesity type, unspecified whether serious comorbidity present,Type 2 diabetes mellitus with complication, unspecified terminal clerk insulin use status Place 0.5 g vaginally at bedtime. Use nightly for 2 weeks, then twice a week thereafter. 1 Tube 3 01/28/2018 Active Active Problems Problem Noted Date Hx of cancer of endometrium Diabetes mellitus IBS (irritable bowel syndrome) Obesity Social History Tobacco Use Types Packs/Day Years Used Date Smoking Tobacco: Former Smokeless Tobacco: Never Alcohol Use Standard Drinks/Week Comments Yes 0 (1 standard drink = 0.6 oz pur e alcohol) rarely Sex Assigned at Date Recorded Not on file Last Filed Vital Signs Vital Sign Reading Time Taken Comments Blood Pressure 132/90 01/28/2018 10:51 AM EDT Pulse 84 01/28/2018 10:51 AM EDT Temperature - - Respiratory Rate 14 01/28/2018 10:51 AM EDT Oxygen Saturation - - Inhaled Oxygen Concentration - - Weight 96.3 kg (212 lb 3.2 oz) 01/28/2018 10:51 AM EDT Height 149.9 cm (4' 11 ) 01/28/2018 10:51 AM EDT Body Mass Index 42.86 01/28/2018 10:51 AM EDT Plan of Treatment Health Maintenance Due Date Last Done Comments Covid-19 Vaccine (#1) 1959 DIABETES/HEART DISEASE: ANNUAL CHOLESTEROL (LDL) 06/17 DIABETES: ANNUAL EYE EXAM 1977 DIABETES: ANNUAL FOOT EXAM 1977 DIABETES: ANNUAL URINE PROTEIN TEST (MICROALBUMIN) DIABETES: BLOOD SUGAR CONTROL TEST (HGBA1C) 1977 HEPATITIS C SCREENING 1977 DTAP/TDAP/TD (1 - Tdap) 1978 COLON CANCER SCREENING 2009 SHINGLES VACCINE (1 of 2) 2009 MAMMOGRAM 11/25/2018 11/25/2017 CERVICAL CANCER SCREENING 10/20/2020 10/20/2017 BONE DENSITY SCREENING 2024 PNEUMOCOCCAL VACCINE (1 - PCV) 2024 BMI CHECK/ADVISE 08/25/2024 10/20/2017 INFLUENZA (#1) 2025 Care Teams Group Exercise Manager Relationship Specialty Start Date End Date Musa Lozoya MD PCP - General Internal Medicine 07/30/12
--- OUTSIDE RECORDS SUMMARY | 2025-03-10 08:23 | XMS_ITS | Patient Health Record ---
Author Organization [facility] Address [address] [facility] [address] [place] [id number] Care Team Providers Care Manager Project Management Name Role Phone Amador Pitts Jr Reason For Referral No Information Plan Of Treatment No Information
[2025-03-10 08:26] VITALS: BP 114/72; PULSE 86; RESP 16; TEMP 36.7; BMI 37.4
== END 2025-03-10 09:19 | disposition home or self-care (01) ==
LOC: HO.HMCC 08:19
PROVIDERS: PCP Internal Medicine; Visit Provider Internal Medicine
DX: Z23 Encounter for immunization (principal)

== ENCOUNTER → 2025-03-10 08:18 | Outpatient (BNVA) | payer MEDICARE, SELFPAY | PROVIDERS: PCP Internal Medicine; Visit Provider Internal Medicine | DX: Z00.00 Encounter for general adult medical examination without abnormal findings (principal); F41.9 Anxiety disorder, unspecified; E11.9 Type 2 diabetes mellitus without complications; I10 Essential (primary) hypertension; E66.9 Obesity, unspecified; F32.A Depression, unspecified; J45.20 Mild intermittent asthma, uncomplicated; E78.5 Hyperlipidemia, unspecified; E66.01 Morbid (severe) obesity due to excess calories; Z23 Encounter for immunization; Z71.89 Other specified counseling; Z68.35 Body mass index [BMI] 35.0-35.9, adult; Z86.0101 Personal history of adenomatous and serrated colon polyps; Z85.3 Personal history of malignant neoplasm of breast | CPT/HCPCS: 90471; 90677; 96127; 99397 ==

== ENCOUNTER 2025-07-11 10:31 | Outpatient (REF) | payer MEDICARE, SELFPAY | END 2025-07-11 10:32 | disposition home or self-care (01) | LOC: HO.LAB 10:31 | PROVIDERS: PCP Internal Medicine; Visit Provider Family Medicine | DX: R30.0 Dysuria (principal) | CPT/HCPCS: 87086 ==

== ENCOUNTER 2025-07-11 10:31 | Outpatient (AMB) | payer MEDICARE, SELFPAY ==
[2025-07-11 10:33] VITALS: BP 140/77; PULSE 93; TEMP 36.9; O2SAT 97; BMI 37.8
--- NOTE | 2025-07-11 10:33 | AM.OFFWIN_ITS ---
Intake Vital Signs 07/11/25 10:33 Height 4 ft 11 in Weight 187 lb BMI 37.8 BP 140/77 H Blood Pressure Location Rt brachial Position Sitting Pulse 93 Pulse Source Pulse Oximeter Temp 98.4 F Temp Source Oral Pulse Oximetry (%) 97 Oxygen Delivery Method Room Air Intake Visit Reasons: EP- UTI Intake Note: EP complains of frequency and urgency with pain in supra-pubic area started this Friday. Patient Tobacco Use Status: Former Tobacco user Allergies azithromycin (From Zithromax Z-German) Allergy (Intermediate, Verified 07/11/25 10:53) RASH, DIARRHEA, VOMIT diphenhydramine (From Benadryl) Adverse Reaction (Intermediate, Verified 07/11/25 10:53) Hallucinations Environmental Allergy (Intermediate, Uncoded 07/11/25 10:53) ITCHY NOSE, COUGH, SNEEZE Do you need a note to return to daycare/school/sports/work: No HPI HPI Comments History of Present Illness Details History of Present Illness The patient is a 65-year-old female with a past medical history of hypertension, asthma, non insulin dependent type 2 DM, history of endometrial cancer status post hysterectomy presenting with urinary symptoms. The patient reports the onset of urinary symptoms since Friday Symptoms characterized by urinary urgency, urinary frequency, and suprapubic pain/pressure No fevers, chills No flank pain. No N/V No hematuria Review of Systems Constitutional: Negative for fevers, chills Gastroenterology: Negative for nausea or vomiting Genitourinary: Reports urinary frequency, urgency, dysuria, and suprapubic pain. Negative for flank pain, hematuria, or vaginal discharge Physical Exam Constituational: +Alert and oriented, Well nourished, No acute distress. Pulmonary: No respiratory distress Abdominal: Soft, Non-tender, No Left or Right CVA TTP Musculoskeletal: Moving all extremities spontaneously and against gravity Psychiatric: Cooperative, Appropriate mood & affect, Normal judgment. [facility] Medical History (Updated 03/15/25 @ 00:18 by Melissa Marsh MD) History of adenomatous polyp of colon History of endometrial cancer History of left breast cancer Intermittent palpitations Anxiety and depression Obesity GERD (gastroesophageal reflux disease) History of anxiety Sleep apnea Essential hypertension Mild intermittent asthma Endometrial cancer Tubular adenoma of colon Breast cancer, left Dyslipidemia Type 2 diabetes mellitus without complication, without long-term current use of insulin Surgical History History of surgical removal of ganglion cyst Hx of cholecystectomy History of excision of pilonidal cyst History of lumpectomy of left breast History of esophagogastroduodenoscopy (EGD) H/O colonoscopy History of total abdominal hysterectomy and bilateral salpingo-oophorectomy Family History Father Alcoholism CAD (coronary artery disease) Stomach cancer Myocardial infarction Mental health disorder Mother Diabetes mellitus Sister Schizophrenia Brother Mental health disorder Maternal Grandmother Uterine cancer Brother No problems noted. Social History Housing: House Alcohol intake: never Patient Tobacco Use Status: Former Tobacco user e-Cigarette/Vaping Use: Never Used Current occupational status: retired Cognitive needs: No Hearing needs: No Vision needs: Yes Physical Exam Vital Signs: Last Vital Signs Temp 98.4 F 07/11/25 10:33 Pulse 93 07/11/25 10:33 BP 140/77 H 07/11/25 10:33 Pulse Ox 97 07/11/25 10:33 Oxygen Delivery Method Room Air 07/11/25 10:33 BMI result Body Mass Index 37.8 Assessment & Plan Assessment & Plan (1) Dysuria: Code(s): R30.0 - Dysuria Plan - A preliminary urinalysis is positive for leukocytes. Based on symptoms and UA results, concern for UTI - A definitive urine culture will be sent. - Empiric treatment with Keflex (cephalexin) was sent to the pharmacy to be taken twice daily for five days. - Will adjust antibiotic if necessary based on final urine cultures. - The patient was educated on the importance of hydration and proper hygiene, including wiping from front to back. - She was advised to return for re-evaluation if she develops new fevers, vomiting, or severe flank pain. Patient was informed and verbally consented to the use of an ambient scribe for clinic note documentation during the visit. Orders: Orders AMB Urinalysis Automated Today R30.0 - Dysuria Urine Culture Today R30.0 - Dysuria Medications: New cephalexin 500 mg PO BID 10 caps 0RF Patient Instructions: Please take antibiotics as prescribed. Urine cultures were sent during today's visit. We will call you if there are any changes to your antibiotics. Drink plenty of water. Do not delay urinating when you feel the need to urinate. Wipe from front to back to keep rectal bacteria from getting into the vagina and urethra. Avoid using irritating cosmetics or chemicals in the area of the vagina and urethra (such as strong soaps, feminine hygiene sprays or douches, or scenting napkins or panty liners) Urinate soon after sexual intercourse. Empty your bladder completely when you urinate. If new or worsening symptoms such as high fever, vomiting, or lower flank pain occur, then go to the ER for evaluation. Coding Level of Care Code Est Pt Level 3 (71317) Diagnoses Dysuria R30.0
== END 2025-07-11 11:24 | disposition home or self-care (01) ==
LOC: HO.HMCWIS 10:31
PROVIDERS: PCP Internal Medicine; Visit Provider Family Medicine
DX: R30.0 Dysuria (principal)

== ENCOUNTER 2025-08-01 08:38 | Observation (INO) | payer MEDICARE, SELFPAY ==
[2025-08-01] VITALS (11 sets, daily range): BP systolic 119–144; BP diastolic 55–76; PULSE 66–102; RESP 11–22; TEMP 36.3–37.3; O2SAT 96–98; BMI 38.1
--- NOTE | 2025-08-01 | ECG_ITS ---
Test Reason : CP Blood Pressure : */* mmHG Vent. Rate : 108 BPM Atrial Rate : 108 BPM P-R Int : 146 ms QRS Dur : 78 ms QT Int : 362 ms P-R-T Axes : 62 40 48 degrees QTcB Int : 485 ms Sinus tachycardia Otherwise normal ECG No previous ECGs available Referred By: Generic ED Physician Electronically Signed By: ALIS DUNCAN MD
--- NOTE | ~2025-08-01 | XR_ITS ---
EXAMINATION: XR CHEST CLINICAL INFORMATION: cp COMPARISON: July 09, 2007 is not available on PACS. TECHNIQUE: PA and lateral views FINDINGS: No consolidation, pleural effusion or pneumothorax. Cardiomediastinal silhouette size is normal. No hyperinflation. Multilevel thoracolumbar spondylosis, mild. S-shaped curvature mid thoracic spine which could be positional. Vascular clips right upper quadrant abdomen likely cholecystectomy. Patient's large body habitus/obesity. Vascular clips in the left axillary region with the asymmetric decreased left-sided breast shadow. XR/XR chest 2V IMPRESSION: No acute airspace disease. Status post lumpectomy and axillary dissection, left side. Electronically signed by: Inder Manzanares MD 08/01/2025 09:39 AM SELIN
--- NOTE | ~2025-08-01 | CT_ITS ---
EXAMINATION: CT ANGIOGRAM CHEST CLINICAL INFORMATION: PE COMPARISON: None available. TECHNIQUE: Multiple axial images were obtained through the chest after the administration of 65 mL of Omnipaque 350 intravenous contrast. Extensive vascular post-processing including two-dimensional and three-dimensional reformatted images were created and reviewed on an independent workstation. SmartPrep technique. This CT examination was performed using dose optimization techniques as appropriate, variously including the following: *Automated exposure control *Adjustment of mA and/or kV according to patient size (this includes techniques or standardized protocols for targeted exams where dose is matched to indication/reason for exam; i.e. extremities or head) *Use of iterative reconstruction technique DLP: 428 mGy-cm FINDINGS: Main pulmonary artery and its main left and right pulmonary branches are patent without intraluminal filling defects. The subsegmental pulmonary branches are patent. No aneurysm or dissection, thoracic aorta. No consolidation, pleural effusion or pneumothorax. No bronchiectasis. No honeycombing. Respiratory airways patent. No pericardial effusion. No pneumomediastinum. Thyroid gland is not enlarged. 17 mm ovoid shaped nodule, left adrenal gland. Status post cholecystectomy. Multilevel spondylosis without acute fracture or gross listhesis. No lytic or blastic lesions. No acute rib fracture. Multiple vascular clips in the left breast and left axillary region. CT/CT angio chest PE protocol IMPRESSION: No acute pulmonary artery emboli. No aneurysm or dissection, thoracic aorta. No gross acute airspace disease. Status post left lumpectomy and left axillary dissection. 17 mm ovoid shaped nodule, left adrenal gland. Fleischner guidelines were followed. Electronically signed by: Inder Manzanares MD 08/01/2025 01:16 PM SELIN
--- NOTE | 2025-08-01 09:11 | ED.CHESTPAIN ---
HPI - Chest Pain General Chief Complaint: Chest Pain Stated Complaint: Cp, shoulder pain Time Seen by Provider: 08/01/25 09:07 Source: patient Mode of arrival: ambulatory Limitations: no limitations History of Present Illness ED Provider: Dr. Roper HPI narrative: 65-year-old female presented hospital today for a left-sided chest pain. History of left-sided breast cancer presented to ER today for evaluation of pleuritic chest pain. Patient has history of diabetes hyperlipidemia as well. The patient stated that she was scraping off the snow on top her car yesterday. When she had a sudden onset of left-sided chest tightness. Patient stated she also developed a episode of diaphoresis yesterday with a this left-sided chest tightness. This pain persists therefore she presents to the ER for further evaluation. Does describe a pleuritic aspect to this pain. Related Data Home Medications ?Medication ?Instructions ?Recorded ?Confirmed psyllium husk 0.4 gram capsule 0.4 g PO DAILY 12/25/20 08/01/25 (Metamucil) coenzyme Q10 100 mg capsule (Co 100 mg PO DAILY 01/12/24 08/01/25 Q-10) acetaminophen 650 mg 650 mg PO Q8H PRN Pain (Scale 08/01/25 08/01/25 tablet,extended release (Tylenol 8 Score 1-3) Hour) loratadine 10 mg tablet 10 mg PO DAILY 08/01/25 08/01/25 metformin 500 mg tablet 500 mg PO Q2D@0900 08/01/25 08/01/25 omeprazole 20 mg capsule,delayed 20 mg PO BEDTIME 08/01/25 08/01/25 release Previous Rx's ?Medication ?Instructions ?Recorded albuterol sulfate 90 mcg/actuation 2 puff inhalation Q4-6H PRN 08/02/24 aerosol inhaler Shortness Of Breath #6.7 grams cholecalciferol (vitamin D3) 50 50 mcg PO DAILY #90 caps 02/24/25 mcg (2,000 unit) capsule (Vitamin D3) citalopram 20 mg tablet 20 mg PO DAILY #90 tabs 04/24/25 bupropion HCl 300 mg 24 hr tablet, 300 mg PO DAILY #100 tabs 05/04/25 extended release lisinopril 10 mg tablet 10 mg PO DAILY #100 tabs 05/04/25 simvastatin 20 mg tablet 20 mg PO BEDTIME #100 tabs 05/04/25 lidocaine 4 % topical patch 1 patch topical DAILY PRN pain #5 08/02/25 ea naproxen 250 mg tablet 250 mg PO BIDWM 5 days #10 tabs 08/02/25 Allergies Allergy/AdvReac Type Severity Reaction Status Date / Time azithromycin (From Zithromax Allergy Intermediate RASH, Verified 08/01/25 08:56 Z-German) DIARRHEA, VOMIT diphenhydramine (From AdvReac Intermediate Hallucinati Verified 08/01/25 08:56 Benadryl) ons Environmental Allergy Intermediate ITCHY Uncoded 07/11/25 10:53 NOSE, COUGH, SNEEZE Review of Systems Review of Systems: Pertinent review of systems as mentioned in HPI. All other system otherwise negative. [facility] Past Medical History [facility] Narrative: Medical history as mentioned in HPI Medical History History of adenomatous polyp of colon History of endometrial cancer History of left breast cancer Anxiety and depression Obesity GERD (gastroesophageal reflux disease) Sleep apnea Essential hypertension Mild intermittent asthma Dyslipidemia Type 2 diabetes mellitus without complication, without long-term current use of insulin Surgical History History of surgical removal of ganglion cyst Hx of cholecystectomy History of excision of pilonidal cyst History of lumpectomy of left breast History of esophagogastroduodenoscopy (EGD) H/O colonoscopy History of total abdominal hysterectomy and bilateral salpingo-oophorectomy Family History Family History Father Alcoholism CAD (coronary artery disease) Stomach cancer Myocardial infarction Mental health disorder Mother Diabetes mellitus Sister Schizophrenia Brother Mental health disorder Maternal Grandmother Uterine cancer Brother No problems noted. Social History Social History Household Members: None Housing: House Do you presently have visiting nurse or other home services: No Alcohol intake: never Patient Tobacco Use Status: Former Tobacco user e-Cigarette/Vaping Use: Never Used service: No Current occupational status: retired Cognitive needs: No Hearing needs: No Vision needs: Yes Physical Exam Exam: Exam: General: Pleasant, no distress, interacting appropriately Head: Normacephalic, atraumatic ENT: oral mucosa moist, neck supple, no tracheal deviation Cardiovascular: regular rate, regular rhythm, no murmurs, rubbing, gallops, reproducible left-sided chest pain on exam Respiratory: CTAB, no wheeze, rales, rhonchi Gastrointestinal: Soft, non distended, non tender, non guarding Extremities: No limb pain or swelling, no calf tenderness Neurological: Awake and alert, no facial droop noted Skin: Warm and dry Psychiatric: Appropriate mood and thoughts Vital Signs: Vital Signs: Last Vital Signs Temp 97.8 F 08/02/25 11:09 Pulse 77 08/02/25 11:09 Resp 18 08/02/25 11:09 BP 102/56 L 08/02/25 11:09 Pulse Ox 97 08/02/25 11:09 O2 Del Method Room Air 08/02/25 11:09 BMI result Body Mass Index 38.1 Medications Administered Discontinued Medications Generic Name Dose Route Start Last Admin Trade Name Freq PRN Reason Stop Dose Admin Acetaminophen 975 mg 08/01/25 10:28 08/01/25 11:15 Acetaminophen 325 Mg Tablet PO 08/01/25 10:29 975 mg ONCE ONE Administration Aspirin 324 mg 08/01/25 10:28 08/01/25 11:15 Aspirin 81 Mg Tab.Chew PO 08/01/25 10:29 324 mg ONCE ONE Administration Atorvastatin Calcium 10 mg 08/01/25 21:00 08/01/25 22:14 Atorvastatin Calcium 10 Mg Tablet PO 10 mg BEDTIME DURGA Administration Bupropion HCl 300 mg 08/02/25 09:00 08/02/25 07:48 Bupropion Hcl Xl 300 Mg Tab.Er.24h PO 300 mg DAILY DURGA Administration Escitalopram Oxalate 10 mg 08/02/25 09:00 08/02/25 07:48 Escitalopram Oxalate 10 Mg Tablet PO 10 mg DAILY DURGA Administration Heparin Sodium (Porcine) 5,000 unit 08/01/25 13:45 08/02/25 01:40 Heparin Sodium,Porcine 5,000 Unit/Ml Vial SUBCUT 5,000 unit Q12H DURGA Administration Hydromorphone HCl 0.5 mg 08/02/25 07:53 08/02/25 08:07 Hydromorphone Hcl 1 Mg/Ml Syringe IVPUSH 08/02/25 07:54 0.5 mg ONCE ONE Administration Protocol Insulin Human Lispro 0 unit 08/01/25 21:00 08/02/25 11:52 Insulin Lispro 100 Unit/Ml 3 Ml Vial SUBCUT Not Given QIDACHS [facility] Protocol Iohexol 100 ml 08/01/25 12:57 08/01/25 12:57 Iohexol 350 Mg/Ml 100 Ml Infus..Btl IV 08/01/25 12:58 65 ml ONCE ONE Administration Ketorolac Tromethamine 30 mg 08/01/25 16:31 08/01/25 17:23 Ketorolac Tromethamine 30 Mg/Ml Vial IVPUSH 08/01/25 16:32 30 mg ONCE ONE Administration Lisinopril 10 mg 08/02/25 09:00 08/02/25 07:48 Lisinopril 10 Mg Tablet PO 10 mg DAILY [facility] Administration Protocol Lorazepam 1 mg 08/01/25 11:33 08/01/25 11:51 Lorazepam 1 Mg Tablet PO 08/01/25 11:34 1 mg ONCE ONE Administration Naproxen 250 mg 08/02/25 08:00 08/02/25 09:14 Naproxen 250 Mg Tablet PO Not Given BIDWM [facility] Nitroglycerin 0.4 mg 08/01/25 10:28 08/01/25 11:15 Nitroglycerin 0.4 Mg Tab.Subl SUBLINGUAL 08/01/25 10:29 0.4 mg ONCE ONE Administration Tizanidine HCl 2 mg 08/02/25 07:54 08/02/25 08:07 Tizanidine Hcl 4 Mg Tablet PO 08/02/25 07:55 2 mg ONCE ONE Administration Medical Decision Making Medical Decision Making [facility] Narrative: This is a 65-year-old female history of hyperlipidemia, diabetes presented hospital today for left-sided chest tightness. Obtain EKG, cardiac workup for the patient. CTA of the chest will be obtained to rule out PE. Patient has left-sided chest pain is reproducible. There may be a muscular component to this. However the diaphoresis and onset of this chest pain it is somewhat suspicious for cardiac source. Aspirin and nitroglycerin will be given to the patient. CTA of the chest did not show any signs of PE. Patient's troponin is negative. Given her suspicious history and chest pain characteristic we will plan to admit patient for chest pain Obs Differential Diagnosis Differential Diagnoses: The differential diagnosis associated with the presentation includes ACS, PE, pneumonia Lab Data MDM Lab Attestation statement: I reviewed the patient's lab results. 08/02/25 07:18 08/02/25 07:18 Labs: Lab Results 08/01/25 08/01/25 Range/Units 11:07 11:07 WBC 9.1 (4.8-10.8) X10*3/uL RBC 4.52 (4.20-5.50) X10*6/uL Hgb 12.6 (12.0-16.0) g/dl Hct 39.2 (37.0-47.0) % MCV 86.7 (80.0-98.0) fL MCH 27.9 (27.0-33.0) pg MCHC 32.1 (31.0-35.0) g/dl RDW 14.0 (11.0-16.0) % Plt Count 290 (160-400) X10*3/uL MPV 9.8 (9.4-12.3) fL Immature Gran % (Auto) 0.3 (0.0-0.4) % Neut % (Auto) 65.7 (45-73) % Lymph % (Auto) 28.0 (20-40) % Pepin % (Auto) 4.9 (2-11) % Eos % (Auto) 0.8 (0-4) % Baso % (Auto) 0.3 (0-2) % Lymph # (Auto) 2.5 (1.2-4.9) X10*3/uL Pepin # (Auto) 0.4 (0.1-1.2) X10*3/uL Eos # (Auto) 0.1 (0.0-0.4) X10*3/uL Baso # (Auto) 0.0 (0.0-0.2) X10*3/uL Abs Immat Gran (auto) 0.03 (0.00-0.03) X10*3/uL Absolute Neuts (auto) 6.0 (2.0-8.3) x10*3/uL Absolute Nucleated RBC 0.000 (0.0-0.012) X10*3/uL Nucleated RBC % (auto) 0.0 (0.0-0.2) /100WBC Sodium 143 (135-145) mmol/L Potassium 5.0 (3.3-5.1) mmol/L Chloride 106 (96-108) mmol/L Carbon Dioxide 26 (22-29) mmol/L Anion Gap 16 (12-20) BUN 11 (9-16) mg/dL Creatinine 0.96 (0.5-1.4) mg/dL Estim Creat Clear Calc 54.7 Estimated GFR 58 Random Glucose 123 H (60-115) mg/dL Calcium 9.2 (8.4-10.2) mg/dL Total Bilirubin 0.4 (0.0-1.0) mg/dL AST 23 (5-31) U/L ALT 15 (0-31) U/L Alkaline Phosphatase 98 (39-117) U/L Troponin I High Sens < 2.7 < 2.7 (<3.5-17.0) ng/L Total Protein 7.1 (6.5-8.0) g/dL Albumin 4.4 (3.5-5.0) g/dL Independent Interpretation I performed an independent interpretation of an: Plain X-Ray Radiology Impression Discussion of test interpretation with radiology: I have reviewed the radiologist's reading. Discharge Plan Discharge Clinical Impression: Chest pain Patient Disposition: Admitted As Inpatient Interventions: Admission Worksheet (ED) Last Done: 08/01/25 20:04 Discharge Date/Time: 08/01/25 21:33
[2025-08-01 11:11] LABS: MANUAL DIFF FLAG NO
[2025-08-01 11:13] LABS: Hematocrit 39.2 % (37.0-47.0); Hemoglobin 12.6 g/dl (12.0-16.0); Imm Gran Abs Auto 0.03 X10*3/uL (0.00-0.03); Imm Gran Pct Auto 0.3 % (0.0-0.4); Lymphocytes Absolute Auto 2.5 X10*3/uL (1.2-4.9); Mean Corpuscular HGB Conc 32.1 g/dl (31.0-35.0); Mean Corpuscular Hemoglobin 27.9 pg (27.0-33.0); Mean Corpuscular Volume 86.7 fL (80.0-98.0); NRBC Abs Auto 0.000 X10*3/uL (0.0-0.012); NRBC Pct Auto 0.0 /100WBC (0.0-0.2); Platelet Count 290 X10*3/uL (160-400); Red Blood Count 4.52 X10*6/uL (4.20-5.50); White Blood Count 9.1 X10*3/uL (4.8-10.8)
[2025-08-01 11:28] LABS: Alanine Aminotransferase 15 U/L (0-31); Albumin Level 4.4 g/dL (3.5-5.0); Alkaline Phosphatase 98 U/L (39-117); Anion Gap 16 (12-20); Aspartate Amino Transferase 23 U/L (5-31); Blood Urea Nitrogen 11 mg/dL (9-16); Calcium 9.2 mg/dL (8.4-10.2); Carbon Dioxide 26 mmol/L (22-29); Chloride 106 mmol/L (96-108); Creatinine Clr Calc Pharmacy 54.7; Estimated Glomerular Filt Rate 58; Potassium 5.0 mmol/L (3.3-5.1); Sodium 143 mmol/L (135-145); Total Protein 7.1 g/dL (6.5-8.0)
[2025-08-01 11:36] LABS: Troponin-I High Sensitivity < 2.7 ng/L (<3.5-17.0)
[2025-08-01 11:38] LABS: Troponin-I High Sensitivity < 2.7 ng/L (<3.5-17.0)
[2025-08-01] MEDS: iohexoL 350 MG/ML 100 ML INFUS..BTL IV (12:57)
--- NOTE | 2025-08-01 13:03 | PC.NURSE ---
Addendum entered by Hattie Link RN 08/01/25 13:05: Pt denies sick contacts. Pt reporting baseline SOB, has been using her home inhalers. Original Note: Pt very tearful when nursing at bedside, she reports that she is scared, reporting this has happened to her before and she was told that it was anxiety. Pt reports the CP started yesterday after she cleaned her car off. Reporting she noted it after she was sitting down in her chair. Pt noted that it did wake her up 2 times throughout last night. Pt desrbies it more on her left chest but on the side under her arm. Pt is talking in full sentences on RA. Pt denies any n/v/d.
--- NOTE | 2025-08-01 13:49 | PM.IMHP ---
History of Present Illness Date of Service: 08/01/25 Chief Complaint: chest pain 65-year-old woman with a history of diabetes mellitus, hypertension, obesity presenting to the ER with complaints of sudden onset of pleuritic, persistent left sided chest tightness with associated diaphoresis that started yesterday while she was scraping off the top of her car. She reported some nausea but no vomiting, diarrhea, fever, chills. She denies any history of this type of chest pain in the past. In the ER, EKG with no acute ischemic changes, chest CTA negative for acute pulmonary artery, no consolidation or airspace disease, she received a dose of aspirin, nitroglycerin, Tylenol, lorazepam. Plan will be to place on observation for further treatment of chest pain. Review of Systems Review of Systems: Denies any recent fever chills or decrease in appetite respiratory denies any shortness of breath or cough cardiovascular see HPI gastrointestinal denies any dysphagia abdominal pain nausea vomiting or diarrhea genitourinary denies any dysuria frequency or hematuria musculoskeletal denies any joint pain or swelling neuropsych denies any weakness or seizures all other systems reviewed are negative [facility] Medical History (Updated 08/01/25 @ 16:31 by Lucrecia Stubbs NP) History of adenomatous polyp of colon History of endometrial cancer History of left breast cancer Anxiety and depression Obesity GERD (gastroesophageal reflux disease) Sleep apnea Essential hypertension Mild intermittent asthma Dyslipidemia Type 2 diabetes mellitus without complication, without long-term current use of insulin Family History Father Alcoholism CAD (coronary artery disease) Stomach cancer Myocardial infarction Mental health disorder Mother Diabetes mellitus Sister Schizophrenia Brother Mental health disorder Maternal Grandmother Uterine cancer Brother No problems noted. Surgical History History of surgical removal of ganglion cyst Hx of cholecystectomy History of excision of pilonidal cyst History of lumpectomy of left breast History of esophagogastroduodenoscopy (EGD) H/O colonoscopy History of total abdominal hysterectomy and bilateral salpingo-oophorectomy Social History Housing: House Alcohol intake: never Patient Tobacco Use Status: Former Tobacco user e-Cigarette/Vaping Use: Never Used Advance Directives: No Advance Directives Information Provided: Yes Current occupational status: retired Cognitive needs: No Hearing needs: No Vision needs: Yes Meds Allergies Allergy/AdvReac Type Severity Reaction Status Date / Time azithromycin (From Zithromax Allergy Intermediate RASH, Verified 08/01/25 08:56 Z-German) DIARRHEA, VOMIT diphenhydramine (From AdvReac Intermediate Hallucinati Verified 08/01/25 08:56 Benadryl) ons Environmental Allergy Intermediate ITCHY Uncoded 07/11/25 10:53 NOSE, COUGH, SNEEZE Active Medications: Current Medications Acetaminophen (Acetaminophen Supp 650 Mg Supp.Rect) 650 mg CA Q6H PRN PRN Reason: Pain, Mild 1-3,fever,headache Heparin Sodium (Porcine) (Heparin Sodium,Porcine 5,000 Unit/Ml Vial) 5,000 unit SUBCUT Q12H DURGA Ondansetron HCl (Ondansetron Hcl 4 Mg/2 Ml Vial) 4 mg IVPUSH Q8H PRN PRN Reason: Nausea and Vomiting Home Medications ?Medication ?Instructions ?Recorded ?Confirmed ?Last Taken ?Type psyllium husk 0.4 gram capsule 0.4 g PO DAILY 12/25/20 08/01/25 Unknown History (Metamucil) coenzyme Q10 100 mg capsule (Co 100 mg PO DAILY 01/12/24 08/01/25 07/31/25 History Q-10) acetaminophen 650 mg 650 mg PO Q8H PRN Pain (Scale 08/01/25 08/01/25 Unknown History tablet,extended release (Tylenol 8 Score 1-3) Hour) loratadine 10 mg tablet 10 mg PO DAILY 08/01/25 08/01/25 07/31/25 History metformin 500 mg tablet 500 mg PO Q2D@0900 08/01/25 08/01/25 Unknown History omeprazole 20 mg capsule,delayed 20 mg PO BEDTIME 08/01/25 08/01/25 07/31/25 History release Physical Exam Vital Signs and Narrative: Vital Signs: Last Vital Signs Temp 99.2 F 08/01/25 08:54 Pulse 93 08/01/25 13:36 Resp 22 H 08/01/25 11:13 BP 134/61 08/01/25 13:36 Pulse Ox 98 08/01/25 11:13 O2 Del Method Room Air 08/01/25 11:13 BMI result Body Mass Index 38.1 Appearing in no acute distress head is normocephalic atraumatic eyes pupils are PERRLA sclera is anicteric mouth throat mucous membranes are intact and moist neck is supple no lymphadenopathy, no JVD noted lung sounds are clear to auscultation heart regular rate rhythm, clear S1, S2 positive bowel sounds, abdomen is soft, nontender neuro patient is alert x3, no focal deficits Palpable pain to left chest and shoulder Results Labs 08/01/25 11:07 08/01/25 11:07 Labs: Laboratory Results - last 24 hr 08/01/25 08/01/25 11:07 11:07 MCV 86.7 MCH 27.9 MCHC 32.1 RDW 14.0 Plt Count 290 MPV 9.8 Immature Gran % (Auto) 0.3 Neut % (Auto) 65.7 Lymph % (Auto) 28.0 [place] % (Auto) 4.9 Eos % (Auto) 0.8 Baso % (Auto) 0.3 Lymph # (Auto) 2.5 [place] # (Auto) 0.4 Eos # (Auto) 0.1 Baso # (Auto) 0.0 Abs Immat Gran (auto) 0.03 Absolute Neuts (auto) 6.0 Absolute Nucleated RBC 0.000 Nucleated RBC % (auto) 0.0 Anion Gap 16 Estim Creat Clear Calc 54.7 Estimated GFR 58 Random Glucose 123 H Calcium 9.2 Total Bilirubin 0.4 AST 23 ALT 15 Alkaline Phosphatase 98 Troponin I High Sens < 2.7 < 2.7 Total Protein 7.1 Albumin 4.4 Imaging Radiologist's Impressions: Impressions Chest X-Ray 08/01/25 09:34 IMPRESSION: No acute airspace disease. Status post lumpectomy and axillary dissection, left side. Electronically signed by: Idner Manzanares MD 08/01/2025 09:39 AM EST Chest CTA 08/01/25 12:38 IMPRESSION: No acute pulmonary artery emboli. No aneurysm or dissection, thoracic aorta. No gross acute airspace disease. Status post left lumpectomy and left axillary dissection. 17 mm ovoid shaped nodule, left adrenal gland. Fleischner guidelines were followed. Electronically signed by: Inder Manzanares MD 08/01/2025 01:16 PM EST Assessment and Plan (1) Chest pain: Status: Acute Plan 65 year old women placed on observation for chest pain Atypical Chest pain Seems musculoskeletal with pain on palpation to left shoulder and chest Risk factors include HTN, obesity, DM2 No ischemic changes noted on EKG Normal troponins monitor on Telemetry cardiology consultation echocardiogram Aspirin and statin PPI Toradol for musculoskeletal pain Hypertension Stable blood pressure Continue lisinopril Diabetes mellitus type 2 Sliding scale, ADA diet Mild intermittent asthma No exacerbation Inhalers as needed Obstructive sleep apnea Not on CPAP Obesity class 2. BMI 38.1 Discussed importance of weight management as this may be contributing to worsening of other comorbidities Anxiety and depression Continue home medications DVT prophylaxis with heparin Full code Quality Stroke Does the patient have a stroke diagnosis?: No VTE Prior VTE?: No VTE Risk Level:: Medical - moderate - high VTE Device Contraindication: Treatment Not Indicated VTE Drug Contraindication: N/A - Med Ordered
--- NOTE | 2025-08-01 14:18 | CA_ITS ---
Transthoracic Echocardiogram Patient (Last, First, Middle): Sharon Vickers, Gender: F Date of : 1960 Age: 65 Procedure Date: 08/01/2025 Procedure Type: Transthoracic Echocardiogram Location: ER Height: 149.86 cm Weight: 85.28 kg BSA: 1.80 m2 Heart Rate: bpm BP: 134 / 61 mmHg Waterproofing Machine Operator: ANDERSON Referring MD: Lucrecia Stubbs NP Video Game Script Writer: Tripp Dela Cruz MD Symptoms: chest pain Study Quality: Adequate ECG Rhythm: Sinus Conclusions: - 1. Hyperdynamic LV EF of greater than 70% with impaired relaxation filling pattern 2. Normal cardiac valvular Dopplers 3. No gross pericardial effusion Findings Procedure Information Contrast agent, definity, is being given per protocol without apparent complications. Left Ventricle Normal left ventricular cavity size. There is normal left ventricular wall thickness. The left ventricular systolic function is hyperdynamic. The visually estimated ejection fraction is >70%. Spectral Doppler is indicative of an impaired relaxation filling pattern. E/E prime ratio is between 8 and 15 consistent with indeterminate filling pressures. Right Ventricle Normal right ventricular cavity size and systolic function. Atria Both atria are normal in size. Interatrial shunt cannot be excluded. Aortic Valve The aortic valve structure and function is likely normal. There is no aortic valve stenosis. There is no aortic valve regurgitation. Mitral Valve Normal mitral valve structure and function. There is trace mitral valve regurgitation. There is no mitral valve stenosis. Pulmonic Valve The pulmonic valve is likely normal. There is trace pulmonic valve regurgitation. Tricuspid Valve Normal tricuspid valve structure. Tricuspid regurgitation envelope is inadequate for calculation of right ventricular systolic pressure. Normal right atrial pressure. Great Vessels All visible segments of the aorta are normal in size. The pulmonary artery was not well visualized. There is no dilatation of the ascending aorta measuring 2.60 cm. Venous The inferior vena cava is normal in size. Pericardium/Pleural There is no evidence of pericardial effusion. Prior Study Comparison No prior study available for comparison. Measurements 2D Linear Measurements IVSd: 0.98 0.6-0.9/0.6-1.0 cm LVIDd: 4.14 3.9-5.3/4.2-5.9 cm LVIDd Index: 2.30 2.4-3.2/2.2-3.1 cm/m2 LVIDs: 2.45 2.0-3.6 cm LVPWd: 0.72 0.7-1.1 cm LA Diam: 3.30 2.7-3.8/3.0-4.0 cm LAIDs Index: 1.83 1.5-2.3 cm/m2 LV Mass: 133.35 67-162/88-224 g LV Mass Index: 74.08 43-95/49-115 g/m2 LVOT Diam: 1.80 3.0+(-)1.3 cm 2D Systolic Function EF 4C: 67.80 >55% EF 2C: 72.90 >55% EF BiP: 71.00 >55% Mitral Valve MV Pk E: 0.87 MV PK A: 1.23 MV Decel Time: 193.00 E/A: 0.70 E'Lateral: 7.62 E'Medial: 5.66 E/E' Med: 15.40 E/E' Lat: 11.40 PHT: 56.00 MVA PHT: 3.93 Decel Kane: 4.51 Aortic Valve AoV Pk Cristian: 1.52 AoV Mn Cristian: 1.01 AoV VTI: 0.29 AoV Pk Grad: 9.00 Aov Mn Grad: 5.00 KATHARINE Cont.VTI: 2.33 LVOT LVOT Pk Cristian: 1.36 LVOT Mn Cristian: 0.90 LVOT VTI: 0.27 LVOT Pk Grad: 7.00 LVOT Mn Grad: 4.00 LVOT Diam: 1.80 LVOT Area: 2.54 Diastolic Function MV Pk E: 0.87 MV Pk A: 1.23 E/A: 0.70 E'Medial: 5.66 E/E' Med: 15.40 E' Laterial: 7.62 E/E' Lat: 11.40 Right Ventricle TAPSE (mm): 24.90 TVS' Cristian: 12.80 Tricuspid Valve RA Press: 3.00 Great Vessels Aorta Sinus of Valsalva: 2.32 2.0-3.5 cm Ao Asc: 2.60 2.1-3.4 cm Updated in Other Vendor System with Status of Final Tripp Dela Cruz MD electronically signed on 08/01/2025 3:50:15 PM with status of Final
--- NOTE | 2025-08-01 15:11 | PHA.MEDREC ---
Pharmacy Consult ? Medication Reconciliation Pharmacy has completed the medication reconciliation.med rec complete, spoke to patient and reviewed pharmacy claims. Patient states the metformin she is only taking 1 tab every other day
[2025-08-01 16:17] LABS: Appearance Urine Clear; Glucose Urine UA Negative (Negative); PH 5.5 (5.0-9.0); Specific Gravity - Urine >= 1.030 (1.005-1.025)
[2025-08-01 22:10] LABS: Glucose, Whole Blood 129 mg/dL (60-115)
[2025-08-02 03:22] VITALS: BP 127/65; PULSE 81; RESP 18; TEMP 36.7; O2SAT 96
[2025-08-02 07:07] VITALS: BP 125/61; PULSE 80; RESP 18; TEMP 36.4; O2SAT 97
[2025-08-02 07:33] LABS: Glucose, Whole Blood 150 mg/dL (60-115)
[2025-08-02 07:40] LABS: Hematocrit 38.4 % (37.0-47.0); Hemoglobin 12.4 g/dl (12.0-16.0); Mean Corpuscular HGB Conc 32.3 g/dl (31.0-35.0); Mean Corpuscular Hemoglobin 27.6 pg (27.0-33.0); Mean Corpuscular Volume 85.3 fL (80.0-98.0); NRBC Abs Auto 0.000 X10*3/uL (0.0-0.012); NRBC Pct Auto 0.0 /100WBC (0.0-0.2); Platelet Count 283 X10*3/uL (160-400); Red Blood Count 4.50 X10*6/uL (4.20-5.50); White Blood Count 7.1 X10*3/uL (4.8-10.8)
[2025-08-02 07:48] VITALS: BP 125/61
[2025-08-02] MEDS: buPROPion HCl XL 300 MG TAB.ER.24H PO (07:48)
[2025-08-02 07:56] LABS: Anion Gap 12 (12-20); Blood Urea Nitrogen 13 mg/dL (9-16); Calcium 9.2 mg/dL (8.4-10.2); Carbon Dioxide 27 mmol/L (22-29); Chloride 106 mmol/L (96-108); Creatinine Clr Calc Pharmacy 54.1; Estimated Glomerular Filt Rate 57; Potassium 4.3 mmol/L (3.3-5.1); Sodium 141 mmol/L (135-145)
--- NOTE | 2025-08-02 09:37 | PM.CNCAR ---
History of Present Illness History of Present Illness Date of Service: 08/02/25 Requesting physician: Lucrecia Stubbs Consult reason: chest pain Chief complaint: chest pain Narrative: I was consulted to see Sharon in cardiology consultation today for chest pain. Patient is a 65 year female with prior history of hypertension, hyperlipidemia, diabetes, as well came to the hospital with left-sided inframammary chest pain radiating to the back. Patient says she was scraping her car with a long pulled off the ice. Because of her high she is not able to reach her Barb's pushing and pulling and may have over stretch. Subsequently she started having sharp chest pain in the inframammary region. She continues to have sharp pain especially with deep breath and also is tender to touch. Patient is admitted because of her risk factors. Troponin admission was less than 2.5. Patient's EKGs showed no ischemic changes. Review of Systems Constitutional: Constitutional: Reports no additional constitutional complaints Cardiovascular: Cardiovascular: Reports dyspnea on exertion Respiratory: Respiratory: Reports no additional respiratory complaints and Reports dyspnea on exertion Gastrointestinal: Gastrointestinal: Reports no additional gastrointestinal complaints Genitourinary: Genitourinary: Reports no additional female genitourinary complaints Neurologic: Reports system reviewed and no additional complaints, except as documented PMFSH Past Medical History Medical History History of adenomatous polyp of colon History of endometrial cancer History of left breast cancer Anxiety and depression Obesity GERD (gastroesophageal reflux disease) Sleep apnea Essential hypertension Mild intermittent asthma Dyslipidemia Type 2 diabetes mellitus without complication, without long-term current use of insulin Family History Family History Father Alcoholism CAD (coronary artery disease) Stomach cancer Myocardial infarction Mental health disorder Mother Diabetes mellitus Sister Schizophrenia Brother Mental health disorder Maternal Grandmother Uterine cancer Brother No problems noted. Surgical History Surgical History History of surgical removal of ganglion cyst Hx of cholecystectomy History of excision of pilonidal cyst History of lumpectomy of left breast History of esophagogastroduodenoscopy (EGD) H/O colonoscopy History of total abdominal hysterectomy and bilateral salpingo-oophorectomy Social History Social History Household Members: None Housing: House Do you presently have visiting nurse or other home services: No Alcohol intake: never Patient Tobacco Use Status: Former Tobacco user e-Cigarette/Vaping Use: Never Used Current occupational status: retired Cognitive needs: No Hearing needs: No Vision needs: Yes Meds Allergies Allergy/AdvReac Type Severity Reaction Status Date / Time azithromycin (From Zithromax Allergy Intermediate RASH, Verified 08/01/25 08:56 Z-German) DIARRHEA, VOMIT diphenhydramine (From AdvReac Intermediate Hallucinati Verified 08/01/25 08:56 Benadryl) ons Environmental Allergy Intermediate ITCHY Uncoded 07/11/25 10:53 NOSE, COUGH, SNEEZE Active Medications: Current Medications Acetaminophen (Acetaminophen Supp 650 Mg Supp.Rect) 650 mg MD Q6H PRN PRN Reason: Pain, Mild 1-3,fever,headache Albuterol Sulfate (Albuterol Sulfate 90 Mcg 8 Gm Inhaler) 2 puff INHALE RQ4H PRN PRN Reason: Shortness of Breath Atorvastatin Calcium (Atorvastatin Calcium 10 Mg Tablet) 10 mg PO BEDTIME [facility] Last Admin: 08/01/25 22:14 Dose: 10 mg Bupropion HCl (Bupropion Hcl Xl 300 Mg Tab.Er.24h) 300 mg PO DAILY [facility] Last Admin: 08/02/25 07:48 Dose: 300 mg Dextrose (Dextrose 50 % 25 Gm/50 Ml Syringe) 25 gm IVPUSH Q15M PRN; Protocol PRN Reason: per Hypoglycemia Standing Ord. Escitalopram Oxalate (Escitalopram Oxalate 10 Mg Tablet) 10 mg PO DAILY [facility] Last Admin: 08/02/25 07:48 Dose: 10 mg Glucose (Glucose Gel 15 Gm Gel..Gram.) 15 gm PO Q15M PRN; Protocol PRN Reason: per Hypoglycemia Standing Ord. Heparin Sodium (Porcine) (Heparin Sodium,Porcine 5,000 Unit/Ml Vial) 5,000 unit SUBCUT Q12H [facility] Last Admin: 08/02/25 01:40 Dose: 5,000 unit Insulin Human Lispro (Insulin Lispro 100 Unit/Ml 3 Ml Vial) 0 unit SUBCUT QIDACHS [facility]; Protocol Last Admin: 08/02/25 07:40 Dose: Not Given Lisinopril (Lisinopril 10 Mg Tablet) 10 mg PO DAILY [facility]; Protocol Last Admin: 08/02/25 07:48 Dose: 10 mg Naproxen (Naproxen 250 Mg Tablet) 250 mg PO BIDWM [facility] Last Admin: 08/02/25 09:14 Dose: Not Given Ondansetron HCl (Ondansetron Hcl 4 Mg/2 Ml Vial) 4 mg IVPUSH Q8H PRN PRN Reason: Nausea and Vomiting Home Medications ?Medication ?Instructions ?Recorded ?Confirmed ?Last Taken ?Type psyllium husk 0.4 gram capsule 0.4 g PO DAILY 12/25/20 08/01/25 Unknown History (Metamucil) coenzyme Q10 100 mg capsule (Co 100 mg PO DAILY 01/12/24 08/01/25 07/31/25 History Q-10) acetaminophen 650 mg 650 mg PO Q8H PRN Pain (Scale 08/01/25 08/01/25 Unknown History tablet,extended release (Tylenol 8 Score 1-3) Hour) loratadine 10 mg tablet 10 mg PO DAILY 08/01/25 08/01/25 07/31/25 History metformin 500 mg tablet 500 mg PO Q2D@0900 08/01/25 08/01/25 Unknown History omeprazole 20 mg capsule,delayed 20 mg PO BEDTIME 08/01/25 08/01/25 07/31/25 History release Physical Exam Vital Signs: Vital Signs: Last Vital Signs Temp 97.5 F 08/02/25 07:07 Pulse 80 08/02/25 07:07 Resp 18 08/02/25 07:07 BP 125/61 08/02/25 07:48 Pulse Ox 97 08/02/25 07:07 O2 Del Method Room Air 08/02/25 07:07 BMI result Body Mass Index 38.1 Const: General: cooperative, comfortable, no acute distress, alert and awake Nutritional Appearance: obese Orientation/consciousness: patient oriented x3 HEENT: Head: Yes normocephalic and Yes atraumatic Neck: Neck: Yes trachea midline, Yes supple and Yes no JVD Chest: Chest palpation & inspection: tenderness (inframammary region) Resp: Effort & Inspection: normal respiratory effort Auscultation: clear to auscultation bilaterally Cardio: Jugular venous distension: no JVD Rate: regular rate Rhythm: regular rhythm Heart sounds: S1 normal heart sound present, S2 normal heart sound present, no click, no gallops, no murmurs and no rubs GI: Auscultation: normal bowel sounds Skin: General skin exam: no rashes or lesions noted Neuro: General: patient oriented x3 and no focal motor deficits Extrem: General: Yes no clubbing, cyanosis or edema Psych: Appearance: grossly normal Objective Labs and Meds 08/02/25 07:18 08/02/25 07:18 Lab results: Laboratory Results - last 24 hr 08/01/25 08/01/25 08/01/25 11:07 11:07 16:02 WBC 9.1 RBC 4.52 Hgb 12.6 Hct 39.2 MCV 86.7 MCH 27.9 MCHC 32.1 RDW 14.0 Plt Count 290 MPV 9.8 Immature Gran % (Auto) 0.3 Neut % (Auto) 65.7 Lymph % (Auto) 28.0 [place] % (Auto) 4.9 Eos % (Auto) 0.8 Baso % (Auto) 0.3 Lymph # (Auto) 2.5 [place] # (Auto) 0.4 Eos # (Auto) 0.1 Baso # (Auto) 0.0 Abs Immat Gran (auto) 0.03 Absolute Neuts (auto) 6.0 Absolute Nucleated RBC 0.000 Nucleated RBC % (auto) 0.0 Sodium 143 Potassium 5.0 Chloride 106 Carbon Dioxide 26 Anion Gap 16 BUN 11 Creatinine 0.96 Estim Creat Clear Calc 54.7 Estimated GFR 58 POC Glucose Random Glucose 123 H Calcium 9.2 Total Bilirubin 0.4 AST 23 ALT 15 Alkaline Phosphatase 98 Troponin I High Sens < 2.7 < 2.7 Total Protein 7.1 Albumin 4.4 Urine Color Yellow Urine Appearance Clear Urine pH 5.5 Ur Specific [place] >= 1.030 H Urine Protein Negative Urine Glucose (UA) Negative Urine Ketones Negative Urine Blood Negative Urine Nitrite Negative Ur Leukocyte Esterase Negative Urine RBC 0-2 Urine WBC 0-5 Ur Squamous Epith Cells 0-2 Urine Bacteria None Seen Hyaline Casts 0-2 08/01/25 08/02/25 08/02/25 22:06 07:18 07:30 WBC 7.1 RBC 4.50 Hgb 12.4 Hct 38.4 MCV 85.3 MCH 27.6 MCHC 32.3 RDW 13.9 Plt Count 283 MPV 9.8 Immature Gran % (Auto) Neut % (Auto) Lymph % (Auto) [place] % (Auto) Eos % (Auto) Baso % (Auto) Lymph # (Auto) [place] # (Auto) Eos # (Auto) Baso # (Auto) Abs Immat Gran (auto) Absolute Neuts (auto) Absolute Nucleated RBC 0.000 Nucleated RBC % (auto) 0.0 Sodium 141 Potassium 4.3 Chloride 106 Carbon Dioxide 27 Anion Gap 12 BUN 13 Creatinine 0.97 Estim Creat Clear Calc 54.1 Estimated GFR 57 POC Glucose 129 H 150 H Random Glucose 145 H Calcium 9.2 Total Bilirubin AST ALT Alkaline Phosphatase Troponin I High Sens Total Protein Albumin Urine Color Urine Appearance Urine pH Ur Specific [place] Urine Protein Urine Glucose (UA) Urine Ketones Urine Blood Urine Nitrite Ur Leukocyte Esterase Urine RBC Urine WBC Ur Squamous Epith Cells Urine Bacteria Hyaline Casts Imaging Radiologist's impression: Impressions Chest X-Ray 08/01/25 09:34 IMPRESSION: No acute airspace disease. Status post lumpectomy and axillary dissection, left side. Electronically signed by: Inder Manzanares MD 08/01/2025 09:39 AM EST RP Chest CTA 08/01/25 12:38 IMPRESSION: No acute pulmonary artery emboli. No aneurysm or dissection, thoracic aorta. No gross acute airspace disease. Status post left lumpectomy and left axillary dissection. 17 mm ovoid shaped nodule, left adrenal gland. Fleischner guidelines were followed. Electronically signed by: Inder Manzanares MD 08/01/2025 01:16 PM EST RP Assessment and Plan (1) Chest pain: Status: Acute Chest pain appears to be musculoskeletal from muscular strain from her activity yesterday. This is appear to be related to any suggestive of acute myocardial ischemia. At this point time patient can be discharged home on nonsteroidals with GI protection. Continue her usual medications for her risk factors. She does have symptoms exertional shortness of breath which could be related to has been but can benefit for outpatient cardiac testing to rule out any significant cardiac issues. Will set her up for the same. Will follow up in the clinic after testing. Thank you for allowing me to partake in her care Procedures Date of Service Date of Service: 08/02/25
--- NOTE | 2025-08-02 09:38 | MHC.CM.PN ---
Emiliana 08/02/25, Pt. lives alone, she does not use home health services or DME. PCP is confirmed: Melissa Marsh MD, pt. reports HCP is her niece, Jocy Burton. Pt. is able to arrange transport home at [place], DCP:home, self care. CM to follow for DC needs.
[2025-08-02 11:09] VITALS: BP 102/56; PULSE 77; RESP 18; TEMP 36.6; O2SAT 97
[2025-08-02 11:17] LABS: Glucose, Whole Blood 126 mg/dL (60-115)
--- NOTE | 2025-08-02 11:52 | P.DS_ITS ---
DS: Providers Provider Date of Service: 08/02/25 Date of admission: 08/01/25 13:42 Date of discharge: 08/02/25 Primary care physician: Melissa Marsh MD Consults: 08/01/25 13:49 Consult to Cardiology Routine Consulting Provider: [facility] Reason for consultation: chest pain DS: Diagnosis Discharge Diagnosis (1) Chest pain: Status: Acute DS: Summary Hospital Course Hospital Course: 65-year-old woman with a history of diabetes mellitus, hypertension, obesity presenting to the ER with complaints of sudden onset of pleuritic, persistent left sided chest tightness with associated diaphoresis that began on 07/31 after scraping off ice from her car. In the ED, troponins negative, EKG with no acute ischemic changes, CT negative for acute pulmonary embolism, no consolidation or airspace disease. Patient seen by Cardiology to decide chest pain likely musculoskeletal in origin from muscular strain from activities. Suggested on following up as an outpatient for shortness of breath on exertion, for cardiac testing. Suspect noncardiac chest pain secondary to MSK in origin from activities -troponins negative, EKG with no ischemic changes -CTA with no PE or dissection -we will initiate naproxen 250 mg b.i.d., lidocaine patch, stretching exercises. -follow up with Cardiology as outpatient -while on NSAIDs, we will send PPI Hypertension Stable blood pressure Continue lisinopril Diabetes mellitus type 2 continue home medications Mild intermittent asthma No exacerbation Inhalers as needed Obstructive sleep apnea Not on CPAP Obesity class 2. BMI 38.1 Discussed importance of weight management as this may be contributing to worsening of other comorbidities Anxiety and depression Continue home medications Time Attestation Discharge Coordination Time (in mins): 35 minutes Quality: Safe Use of Opioids Does Pt have an Active Cancer Diagnosis on the Problem List?: No Quality: Stroke Does the patient have a stroke diagnosis?: No Physical Exam Exam: Exam: General: AxOx3, No acute distress Head: AT/NC ENT: Moist mucous membranes Neck: supple CVS; RRR, S1 S2 normal Lungs: Clear bilateral breath sounds, no wheezes or crackles Abd: Soft non tender, non distended Ext: No edema and no calf tenderness MSK: moving all 4 limbs, reproducible chest pain on palpation to left shoulder and chest. Skin: No cyanosis or edema Psych: Cooperative with exam Neurology: no focal deficit Vital Signs: Vital Signs: Last Vital Signs Temp 97.8 F 08/02/25 11:09 Pulse 77 08/02/25 11:09 Resp 18 08/02/25 11:09 BP 102/56 L 08/02/25 11:09 Pulse Ox 97 08/02/25 11:09 O2 Del Method Room Air 08/02/25 11:09 BMI result Body Mass Index 38.1 DS: Data Data Completed and Pending Labs on day of discharge: Laboratory Results - last 24 hr 08/01/25 08/01/25 08/02/25 16:02 22:06 07:18 WBC 7.1 RBC 4.50 Hgb 12.4 Hct 38.4 MCV 85.3 MCH 27.6 MCHC 32.3 RDW 13.9 Plt Count 283 MPV 9.8 Absolute Nucleated RBC 0.000 Nucleated RBC % (auto) 0.0 Sodium 141 Potassium 4.3 Chloride 106 Carbon Dioxide 27 Anion Gap 12 BUN 13 Creatinine 0.97 Estim Creat Clear Calc 54.1 Estimated GFR 57 POC Glucose 129 H Random Glucose 145 H Calcium 9.2 Urine Color Yellow Urine Appearance Clear Urine pH 5.5 Ur Specific [place] >= 1.030 H Urine Protein Negative Urine Glucose (UA) Negative Urine Ketones Negative Urine Blood Negative Urine Nitrite Negative Ur Leukocyte Esterase Negative Urine RBC 0-2 Urine WBC 0-5 Ur Squamous Epith Cells 0-2 Urine Bacteria None Seen Hyaline Casts 0-2 08/02/25 08/02/25 07:30 11:14 WBC RBC Hgb Hct MCV MCH MCHC RDW Plt Count MPV Absolute Nucleated RBC Nucleated RBC % (auto) Sodium Potassium Chloride Carbon Dioxide Anion Gap BUN Creatinine Estim Creat Clear Calc Estimated GFR POC Glucose 150 H 126 H Random Glucose Calcium Urine Color Urine Appearance Urine pH Ur Specific [place] Urine Protein Urine Glucose (UA) Urine Ketones Urine Blood Urine Nitrite Ur Leukocyte Esterase Urine RBC Urine WBC Ur Squamous Epith Cells Urine Bacteria Hyaline Casts Discharge Plan Discharge Patient Disposition: Home, Self-Care Discharge Diagnosis: Costochondritis Referrals: Melissa Marsh MD [Primary Care Provider, Internal Medicine] - 1 Week Tripp Dela Cruz MD [Physician, Cardiology] - 1 Week Discharge Medications: New naproxen 250 mg Tablet 250 mg PO BIDWM 5 Days Qty: 10 0RF lidocaine 4 % adhesive patch,medicated 1 patch topical DAILY PRN (Reason: pain) Qty: 5 0RF Rx Instructions: Apply for 12 hours and then remove for 12 hours for muscular pain Continued albuterol sulfate 90 mcg/actuation HFA aerosol inhaler 2 puff INHALATION Q4-6H PRN (Reason: Shortness Of Breath) Qty: 6.7 0RF cholecalciferol (vitamin D3) [Vitamin D3] 50 mcg (2,000 unit) capsule 50 mcg PO DAILY Qty: 90 1RF citalopram 20 mg tablet 20 mg PO DAILY Qty: 90 0RF lisinopril 10 mg tablet 10 mg PO DAILY Qty: 100 1RF simvastatin 20 mg tablet 20 mg PO BEDTIME Qty: 100 1RF bupropion HCl 300 mg tablet extended release 24 hr 300 mg PO DAILY Qty: 100 1RF acetaminophen [Tylenol 8 Hour] 650 mg Tablet Extended Release 650 mg PO Q8H PRN (Reason: Pain (Scale Score 1-3)) metformin 500 mg Tablet 500 mg PO Q2D@0900 loratadine 10 mg Tablet 10 mg PO DAILY omeprazole 20 mg capsule,delayed release(DR/EC) 20 mg PO BEDTIME psyllium husk [Metamucil] 0.4 gram capsule 0.4 g PO DAILY coenzyme Q10 [Co Q-10] 100 mg capsule 100 mg PO DAILY Discharge Orders: Discharge Order (Routine); Ordered 08/02/25 Ordered By: Rodrigo Calderon Activity on Discharge: As tolerated Stand Alone Forms: Patient Portal Discharge page Print Language: [place] Care Plan Goals: continue antiinflamory, topical lidocaine patch stretching excercises follow up with cardiology as outpatient Health Concerns: chest pain, likely muscular in origin Plan of Treatment: initiate naproxen 250mg twice a day for 5 days Lidocaine patch 4%, apply for 12 hours then remove for 12 hours May take Over the counter tylenol 500mg every 6 hours as neede for pain follow up with cardiology as outpatient Assessment: 65-year-old woman with a history of diabetes mellitus, hypertension, obesity presenting to the ER with complaints of sudden onset of pleuritic, persistent left sided chest tightness with associated diaphoresis that began on 07/31 after scraping off ice from her car. In the ED, troponins negative, EKG with no acute ischemic changes, CT negative for acute pulmonary embolism, no consolidation or airspace disease. Patient seen by Cardiology to decide chest pain likely musculoskeletal in origin from muscular strain from activities. Suggested on following up as an outpatient for shortness of breath on exertion, for cardiac testing. Patient Instructions: Costochondritis (DC)
== END 2025-08-02 12:45 | disposition home or self-care (01) ==
LOC: HO.ED 09:12 → HO.EDOVER 14:05 → HO.IMC 19:37
PROVIDERS: Admitting Provider Nurse Practitioner Acute Care; Emergency Provider Student in an Organized Health Care Education/Training Program; PCP Internal Medicine; Visit Provider Student in an Organized Health Care Education/Training Program
DX: M94.0 Chondrocostal junction syndrome [Tietze] (principal); R07.9 Chest pain, unspecified; I10 Essential (primary) hypertension; E11.9 Type 2 diabetes mellitus without complications; R00.0 Tachycardia, unspecified; E78.5 Hyperlipidemia, unspecified; J45.909 Unspecified asthma, uncomplicated; G47.33 Obstructive sleep apnea (adult) (pediatric); Z87.891 Personal history of nicotine dependence
CPT/HCPCS: 36415; 71046; 71275; 80048; 80053; 81001; 82947; 84484; 85025; 85027; 93005; 93306; 96372; 96374; 96375; 99222; 99285; J1171; J1644; J1885; Q9957; Q9967

== ENCOUNTER → 2025-08-01 08:40 | Outpatient (BNV) | payer MEDICARE, SELFPAY | PROVIDERS: Emergency Provider Student in an Organized Health Care Education/Training Program; PCP Internal Medicine; Visit Provider Internal Medicine Cardiovascular Disease | DX: R07.9 Chest pain, unspecified (principal); I51.89 Other ill-defined heart diseases; R00.0 Tachycardia, unspecified | CPT/HCPCS: 93010; 93306 ==

== ENCOUNTER → 2025-08-01 09:24 | Outpatient (BNV) | payer MEDICARE, SELFPAY | PROVIDERS: Emergency Provider Student in an Organized Health Care Education/Training Program; PCP Internal Medicine; Visit Provider Radiology Diagnostic Radiology | DX: I26.99 Other pulmonary embolism without acute cor pulmonale (principal); E27.9 Disorder of adrenal gland, unspecified; R07.9 Chest pain, unspecified | CPT/HCPCS: 71046; 71275 ==

== ENCOUNTER → 2025-08-01 13:42 | Outpatient (BNV) | payer MEDICARE, SELFPAY | PROVIDERS: Admitting Provider Nurse Practitioner Acute Care; Emergency Provider Student in an Organized Health Care Education/Training Program; PCP Internal Medicine; Visit Provider Nurse Practitioner Acute Care | DX: R07.9 Chest pain, unspecified (principal) | CPT/HCPCS: 99223 ==

== ENCOUNTER → 2025-08-01 13:42 | Outpatient (BNV) | payer MEDICARE, SELFPAY | PROVIDERS: Admitting Provider Nurse Practitioner Acute Care; Emergency Provider Student in an Organized Health Care Education/Training Program; PCP Internal Medicine; Visit Provider Internal Medicine Cardiovascular Disease | DX: R07.9 Chest pain, unspecified (principal) | CPT/HCPCS: 99222 ==